=== PATIENT | female | born 1955 | race Caucasian/White ===

== ENCOUNTER 2017-02-12 11:16 | Inpatient (IN) | payer OTHER ==
[~2017-02-12] VITALS: Ht 157.5 cm; Wt 59.0 kg
[~2017-02-12 11:16] MED LIST: ALBU1AER9 INH; AMIT100T2 PO; BENA20TA11 PO; CALCTAB7 PO; LVQ500 PO; NRN/300 PO; OXYC-164 PO; TIZA1CAP2 PO; TIZA2CAP PO
[2017-02-12] MEDS ORDERED: NICOTINE 21 MG/24 HR TDSY TD STA (11:20)
[2017-02-12] MEDS ORDERED: SODIUM CHLORIDE 0.9% 1000ML 1,000 ML IV STA (11:20)
[2017-02-12] MEDS ORDERED: ALBUT/IPRATROP 3MG/0.5MG NEB 3 ML VIAL INH ONE (11:30)
[2017-02-12] MEDS ORDERED: NICOTINE POLACRILEX 2 MG GUM MT PRN (11:30)
--- NOTE | 2017-02-12 11:30 | EMERGENCY ROOM VISIT NOTE ---
History Report prepared by Loni: Reny Doe Under the Supervision of: Dr. Owen Shukla M.D. First contact with patient: 11:16 Stated Complaint: RESPIRATORY DISTRESS History of Present Illness The patient is a 61 year old female who presents to the Emergency Room with complaints of persistent respiratory distress that began prior to arrival. Per EMS upon arrival to the patient's home the patient was blue and obtunded. EMS reports that the patient's oxygenation saturation was 86% on room air. EMS notes that the patient does not wear oxygen at home. They note that the patient smokes approximately 5 cigarettes per day. EMS reports that the patient was given Albuterol, Solu Medrol, and supplemental nasal cannula oxygen that helped to alleviate her symptoms. EMS reports that the patient has a history of progressive MS and had a fall yesterday injuring her left leg. The patient's had noted that the patient has a history of pneumonia. Source of History: patient, spouse/significant other (), EMS Onset: prior to arrival Position: other (global) Quality: other (respiratory distress) Timing: other (persistent) Modifying Factors (Relieving): oxygen, other (Albuterol, Solu Medrol) Note: Associated Symptoms: blue, obtunded Review of Systems See HPI for pertinent positives & negatives. A total of 10 systems reviewed and were otherwise negative. Past Medical & Surgical Medical Problems: (1) Anxiety (2) COPD (chronic obstructive pulmonary disease) (3) Depression (4) Dyslipidemia (5) HTN (hypertension) (6) Left patella fracture (7) Multiple sclerosis (8) Persistent insomnia (9) Restless leg syndrome Surgical Problems: (1) History of total right hip arthroplasty Family History Cancer FH: heart attack Social History Smoking Status: Current Every Day Smoker Alcohol Use: none Marital Status: Housing Status: lives with family Occupation Status: employed Current/Historical Medications Scheduled Amitriptyline Hcl (Elavil), 100 MG PO HS Gabapentin (Neurontin), 900 MG PO HS Levofloxacin (Levaquin), 500 MG PO DAILY Multiple Vitamin (Multivitamin), 1 TAB PO DAILY Prednisone Tab (Prednisone), 40 MG PO DAILY Tizanidine Hcl (Tizanidine Hcl), 10 MG PO HS Scheduled PRN Albuterol Hfa (Ventolin Hfa), 2 PUFFS INH QID PRN for Shortness of Breath Clonazepam (Klonopin), 2 MG PO QID PRN for Anxiety Lorazepam (Ativan), 1 MG PO TID PRN for Anxiety Oxycodone Hcl (Oxycodone Hcl), 20 MG PO Q4H PRN for back pain Allergies Coded Allergies: No Known Allergies (Verified , 03/13/15) Physical Exam Vital Signs Date Time Temp Pulse Resp B/P Pulse Ox O2 Delivery O2 Flow Rate FiO2 02/12/17 13:30 100 BiPAP 15.0 60 02/12/17 13:16 106 23 100 02/12/17 12:46 107 112/89 100 02/12/17 12:33 108 161/98 100 BiPAP 15.0 02/12/17 12:32 161/98 02/12/17 12:31 169/99 02/12/17 12:09 105 22 96 BiPAP/CPAP 60 02/12/17 12:06 105 96 100 02/12/17 12:00 160/86 02/12/17 11:54 24 99 BiPAP 02/12/17 11:47 114 28 134/82 Nasal Cannula 6.0 02/12/17 11:46 116 93 02/12/17 11:45 134/82 02/12/17 11:35 118 30 149/80 92 Nasal Cannula 6.0 02/12/17 11:34 91 Nasal Cannula 6.0 02/12/17 11:33 149/80 02/12/17 11:30 118 02/12/17 11:19 162/93 02/12/17 11:18 37.4 119 32 162/93 90 Nasal Cannula 6.0 02/12/17 11:18 85 Room Air Physical Exam GENERAL: Patient is a healthy-appearing well-nourished HEAD: Normocephalic atraumatic EYES: Ocular movements intact pupils equal and react to light OROPHARYNX mucous membranes are moist no exudates present no erythema or edema present NECK: Supple no nuchal rigidity CHEST: Good equal expansion LUNGS: Diffuse wheezing throughout all lung quiroz. CARDIAC: Normal S1 and S2 ABDOMEN: Soft nontender no guarding BACK: No CVA tenderness EXTREMITIES: No pain upon palpation normal muscle strength in all groups no clubbing cyanosis or edema NEURO: Patient is following commands is answering questions appropriately. Alert and oriented x3 Cranial Nerves 2-12 grossly intact Medical Decision & Procedures ER Provider Diagnostic Interpretation: Radiology results as stated below per my review and radiologist interpretation: CHEST ONE VIEW PORTABLE HISTORY: Sepsis COMPARISON: Chest 02/26/2016. FINDINGS: Rotated study. Mild left basilar interstitial thickening which may be chronic. Right hilar density may be due to the patient rotation. No pneumothorax. No pleural effusions. The heart is normal in size. Old, healed left humeral neck fracture. No evidence for pulmonary edema. IMPRESSION: Rotated study. Mild left basilar interstitial thickening which is likely chronic. Increased density within the right hilum may be due to patient rotation. Electronically signed by: Reg Barker M.D. 02/12/2017 11:48 AM Dictated Date/Time: 02/12/2017 11:[address] SCAN OF THE BRAIN WITHOUT IV CONTRAST CLINICAL HISTORY: Change in mental status. COMPARISON STUDY: CT of the brain dated 02/26/2016. TECHNIQUE: Unenhanced axial CT scan of the brain is performed from the vertex to the skull base. CT DOSE: 823.94 mGycm FINDINGS: Brain parenchyma: There are age-related involutional changes noting mild subcortical and periventricular microangiopathic change. Chronic lacunar infarcts are identified in the right cerebellar hemisphere. There is no hemorrhage, mass effect, or evidence of acute territorial ischemia by CT criteria. Osman-white matter is preserved. No extra-axial fluid collection is seen. Ventricles, sulci, cisterns: Prominent secondary to involutional change. Intracranial vasculature: There is atherosclerotic calcification of the cavernous carotid arteries. Calvarium: Unremarkable. Sinuses and mastoids: The visualized paranasal sinuses are clear. The mastoid air cells are well pneumatized. Orbits: The bony orbits are grossly intact. There are bilateral ocular lens implants. IMPRESSION: There is no hemorrhage, mass effect, or evidence of acute territorial ischemia by CT criteria. Electronically signed by: Ki Padilla M.D. 02/12/2017 12:33 PM Dictated Date/Time: 02/12/2017 12:29 PM Laboratory Results Test 02/12/17 11:22 02/12/17 11:55 02/12/17 12:01 02/12/17 13:10 Immature Granulocyte % (Auto) 0.2 % White Blood Count 12.69 K/uL (4.8-10.8) Red Blood Count 5.00 M/uL (4.2-5.4) Hemoglobin 13.9 g/dL (12.0-16.0) Hematocrit 42.3 % (37-47) Mean Corpuscular Volume 84.6 fL (80-100) Mean Corpuscular Hemoglobin 27.8 pg (25-34) Mean Corpuscular Hemoglobin Concent 32.9 g/dl (32-36) Platelet Count 208 K/uL (130-400) Mean Platelet Volume 9.2 fL (7.4-10.4) Neutrophils (%) (Auto) 92.2 % Lymphocytes (%) (Auto) 4.7 % Monocytes (%) (Auto) 2.8 % Eosinophils (%) (Auto) 0.0 % Basophils (%) (Auto) 0.1 % Neutrophils # (Auto) 11.70 K/uL (1.4-6.5) Lymphocytes # (Auto) 0.60 K/uL (1.2-3.4) Monocytes # (Auto) 0.35 K/uL (0.11-0.59) Eosinophils # (Auto) 0.00 K/uL (0-0.5) Basophils # (Auto) 0.01 K/uL (0-0.2) Immature Granulocyte # (Auto) 0.03 K/uL (0.00-0.02) Prothrombin Time 10.8 SECONDS (9.0-12.0) Prothromb Time International Ratio 1.0 (0.9-1.1) Activated Partial Thromboplast Time 33.2 SECONDS (21.0-31.0) Partial Thromboplastin Ratio 1.3 Estimated Average Glucose 120 mg/dl Hemoglobin A1c 5.8 % (4.5-5.6) Total Bilirubin 0.8 mg/dl (0.2-1) Aspartate Amino Transf (AST/SGOT) 35 U/L (15-37) Alanine Aminotransferase (ALT/SGPT) 21 U/L (12-78) Alkaline Phosphatase 113 U/L (45-117) Creatine Kinase MB 4.8 ng/ml (0.5-3.6) Creatine Kinase MB Ratio 0.4 (0-3.0) Troponin I < 0.015 ng/ml (0-0.045) Total Protein 7.8 gm/dl (6.4-8.2) Albumin 3.7 gm/dl (3.4-5.0) Globulin 4.1 gm/dl (2.5-4.0) Albumin/Globulin Ratio 0.9 (0.9-2) Influenza Type A (RT-PCR) Neg for Influ A (NEG) Influenza Type A Antigen Neg for Influ A (NEG) Influenza Type B Antigen Neg for Influ B (NEG) Influenza Type B (RT-PCR) Neg for Influ B (NEG) Bedside Lactic Acid Venous 2.09 mmol/L (0.90-1.70) Arterial Blood pH 7.37 (7.35-7.45) Arterial Blood Partial Pressure CO2 46 mmHg (35-46) Arterial Blood Partial Pressure O2 57 mm/Hg (80-95) Arterial Blood HCO3 26 mmol/L (19-24) Arterial Blood Oxygen Saturation 87.5 % (90-95) Arterial Blood Base Excess 0.7 mEq/L (-9-1.8) Arterial Blood Gas Delivery 100% Harpreet Test POS (POS) Labs reviewed by ED physician. Medications Administered Medications (Trade) Dose Ordered Sig/Elodia Route Start Time Stop Time Status Last Admin Dose Admin Albuterol/ Ipratropium 12 ml 12 ml ONE ONCE INH 02/12/17 11:30 02/12/17 11:31 DC 02/12/17 11:30 12 ML Sodium Chloride (Nss 1000ml) 1,000 ml @ 999 mls/hr Q1H1M STAT IV 02/12/17 11:20 02/12/17 12:20 DC 02/12/17 11:41 999 MLS/HR Nicotine (Nicoderm Cq 21MG Patch) 1 patch NOW STAT TD 02/12/17 11:20 02/12/17 11:22 DC 02/12/17 11:46 1 PATCH ECG Indication: SOB/dyspnea Rate (beats per minute): 117 Rhythm: sinus tachycardia Findings: no acute ischemic change, no ectopy ED Course 1115: Past medical records reviewed. The patient was evaluated in room B1. A complete history and physical examination was performed. 1120: Ordered Nicotine 1 patch TD, Sodium Chloride 1000 ml @ 999 mls/hr IV. 1130: Ordered Duoneb 12 ml INH. 1142: I reevaluated the patient at this time. 1149: I called for Respiratory to place the patient on Bi-PAP. 1240: I reevaluated the patient and she is resting. I discussed all the exam findings with her and I discussed the treatment plan. She verbalized complete understanding and agreement. She is going to be evaluated for further treatment. 1243: I discussed the patients case with Isidro Dow PA-C. She is going to evaluate the patient for further treatment. Medical Decision Differential diagnosis: Etiologies such as infections, reactive airway disease, pneumonia, pneumothorax , COPD, CHF, cardiac ischemia, pulmonary embolism, musculoskeletal, gastrointestinal, as well as others were entertained. This is a 61-year-old female who presents emergency department complaining of respiratory distress. The patient has wheezing throughout all lung quiroz. She was given an hour-long breathing treatment while in the emergency department. I did discuss the case with the hospitalist service who agreed to admit the patient. Patient was placed on BiPAP in the emergency department. Patient family were in agreement with the treatment plan. Consults Time Called: 1236 Consulting Physician: Isidro Dow PA-C Returned Call: [phone] I discussed the patients case with Isidro Dow PA-C. She is going to evaluate the patient for further treatment. Impression Primary Impression: Respiratory failure Additional Impression: Altered mental status Critical Care I have personally spent greater than 30 minutes of critical care time in the direct management of this patient. This includes bedside care, interpretation of diagnostic studies, and testing, discussion with consultants, patient, and family members, and other required patient management activities. This 30 minutes is in excess of all separately billable procedures. Scribe Attestation The scribe's documentation has been prepared under my direction and personally reviewed by me in its entirety. I confirm that the note above accurately reflects all work, treatment, procedures, and medical decision making performed by me. Departure Information Dispostion Being Evaluated By Hospitalist Prescriptions Levofloxacin (Levaquin) 500 Mg Tab 500 MG PO DAILY for 5 Days, #5 TABS Prov: Piper Javier DO 02/13/17 Prednisone Tab (PREDNISONE) 10 Mg Tab 40 MG PO DAILY for 5 Days, #20 TAB Prov: Piper Javier, DO 02/13/17 Oxycodone Hcl (OXYCODONE HCL) 10 Mg Tab 20 MG PO Q4H Y for back pain for 10 Days Prov: Lisa Rich CRNP 4/25/17 Referrals Manuel Linares M.D. (PCP) Problem Qualifiers Primary Impression: Respiratory failure Chronicity: acute Respiratory failure complication: unspecified whether with hypoxia or hypercapnia Qualified Codes: J96.00 - Acute respiratory failure, unspecified whether with hypoxia or hypercapnia Additional Impression: Altered mental status Altered mental status type: unspecified Qualified Codes: R41.82 - Altered mental status, unspecified
[2017-02-12 11:42] LABS: BASO % 0.1 %; BASO ABS # 0.01 K/uL (0-0.2); COMPLETE YES; HEMATOCRIT 42.3 % (37-47); IG% 0.2 %; LYMPH % 4.7 %; MEAN CELL VOLUME 84.6 fL (80-100); MEAN CORPUSCULAR HEMOGLOBIN 27.8 pg (25-34); MEAN CORPUSCULAR HGB CONC 32.9 g/dl (32-36); MEAN PLATELET VOLUME 9.2 fL (7.4-10.4); MONO % 2.8 %; NEUT % 92.2 %; PLATELET COUNT 208 K/uL (130-400); WHITE BLOOD COUNT 12.69 K/uL (4.8-10.8)
--- NOTE | 2017-02-12 11:50 | DIAGNOSTIC IMAGING REPORT ---
CHEST ONE VIEW PORTABLE HISTORY: Sepsis COMPARISON: Chest 02/26/2016. FINDINGS: Rotated study. Mild left basilar interstitial thickening which may be chronic. Right hilar density may be due to the patient rotation. No pneumothorax. No pleural effusions. The heart is normal in size. Old, healed left humeral neck fracture. No evidence for pulmonary edema. IMPRESSION: Rotated study. Mild left basilar interstitial thickening which is likely chronic. Increased density within the right hilum may be due to patient rotation. Electronically signed by: Reg Barker M.D. 02/12/2017 11:48 AM Dictated Date/Time: 02/12/2017 11:46 AM
[2017-02-12 11:51] LABS: PARTIAL THROMBOPLASTIN RATIO 1.3; PROTHROMBIN TIME (PATIENT) 10.8 SECONDS (9.0-12.0)
[2017-02-12 11:54] LABS: ALT/SGPT 21 U/L (12-78); AST/SGOT 35 U/L (15-37); BLOOD UREA NITROGEN 11 mg/dl (7-18); BUN/CREATININE RATIO 13.9 (10-20); CALCIUM 8.8 mg/dl (8.5-10.1); CARBON DIOXIDE 29 mmol/L (21-32); CHLORIDE 104 mmol/L (98-107); GLUCOSE 173 mg/dl (70-99); POTASSIUM 3.7 mmol/L (3.5-5.1); SODIUM 139 mmol/L (136-145)
[2017-02-12 12:06] VITALS: PULSE 105; O2SAT 96
[2017-02-12 12:08] LABS: ALB/GLOB RATIO 0.9 (0.9-2); ALKALINE PHOSPHATASE 113 U/L (45-117); CKMB/CK RATIO 0.4 (0-3.0)
[2017-02-12 12:09] VITALS: PULSE 105; O2SAT 96
--- NOTE | 2017-02-12 12:35 | DIAGNOSTIC IMAGING REPORT ---
CT SCAN OF THE BRAIN WITHOUT IV CONTRAST CLINICAL HISTORY: Change in mental status. COMPARISON STUDY: CT of the brain dated 02/26/2016. TECHNIQUE: Unenhanced axial CT scan of the brain is performed from the vertex to the skull base. CT DOSE: 823.94 mGycm FINDINGS: Brain parenchyma: There are age-related involutional changes noting mild subcortical and periventricular microangiopathic change. Chronic lacunar infarcts are identified in the right cerebellar hemisphere. There is no hemorrhage, mass effect, or evidence of acute territorial ischemia by CT criteria. Osman-white matter is preserved. No extra-axial fluid collection is seen. Ventricles, sulci, cisterns: Prominent secondary to involutional change. Intracranial vasculature: There is atherosclerotic calcification of the cavernous carotid arteries. Calvarium: Unremarkable. Sinuses and mastoids: The visualized paranasal sinuses are clear. The mastoid air cells are well pneumatized. Orbits: The bony orbits are grossly intact. There are bilateral ocular lens implants. IMPRESSION: There is no hemorrhage, mass effect, or evidence of acute territorial ischemia by CT criteria. Electronically signed by: Ki Padilla M.D. 02/12/2017 12:33 PM Dictated Date/Time: 02/12/2017 12:29 PM
[2017-02-12 13:22] LABS: ARTERIAL BLD GAS O2 SATURATION 87.5 % (90-95); ARTERIAL BLOOD GAS BASE EXCESS 0.7 mEq/L (-9-1.8); ARTERIAL BLOOD GAS HCO3 26 mmol/L (19-24); ARTERIAL BLOOD GAS PO2 57 mm/Hg (80-95); ARTERIAL BLOOD GAS pH 7.37 (7.35-7.45)
[2017-02-12 13:30] VITALS: O2SAT 100; Ht 157.5 cm; Wt 59.0 kg
[2017-02-12 13:50] LABS: ALLEN TEST POS (POS); O2 ADMINISTRATION 100%
[2017-02-12 13:57] LABS: INFLUENZA A PCR Neg for Influ A (NEG); INFLUENZA B PCR Neg for Influ B (NEG)
[2017-02-12] MEDS ORDERED: ACETAMINOPHEN 325 MG TAB PO PRN (14:00)
[2017-02-12] MEDS ORDERED: ONDANSETRON INJ 2 MG/ML 2 ML VIAL IV PRN (14:00)
[2017-02-12] MEDS ORDERED: OXYC-164 PO (14:04)
[2017-02-12] MEDS ORDERED: ATV/1 PO (14:04)
[2017-02-12 14:24] LABS: URINE APPEARANCE CLEAR (CLEAR); URINE BILIRUBIN NEG (NEG); URINE COLOR YELLOW; URINE NITRITE NEG (NEG); URINE SPECIFIC GRAVITY 1.019 (1.000-1.030); UROBILINOGEN NEG (NEG)
[2017-02-12 14:25] LABS: MANUAL MICROSCOPIC REQUIRED? NO; REVIEW REQ? NO
[2017-02-12 14:48] LABS: ESTIMATED AVERAGE GLUCOSE 120 mg/dl; HA1C FLAG Normal (Normal)
[2017-02-12 15:07] LABS: BENZODIAZEPINE, URINE POS (NEG); COCAINE,URINE NEG (NEG); PHENCYCLIDINE, URINE NEG (NEG)
[2017-02-12] MEDS ORDERED: ALBUT/IPRATROP 3MG/0.5MG NEB 3 ML VIAL INH PRN (15:30)
--- NOTE | 2017-02-12 15:35 | Progress Note ---
Progress Note Date of Service Feb 12, 2017. Progress Note Patient was seen and evaluated with [employer] OFFICER, Lisa Rich. Patient was brought by EMS as she was obtunded and had turned blue, saturating 86% on RA. Was placed on BIPAP by ED physician. Exam: -General: Awake, Oriented x 3, Fidgety + Restless + -HEENT- Off BIPAP- on oxygen 93% -Lungs- AEBE decreased, no wheezing, crackles -Heart-Sinus tachycardia + -Abd- soft, non tender, non distended, -Neuro- Right sided weakness from MS, no new deficits A/P: 1. UNRESPONSIVE EPISODE- Likely secondary to Medications- Narcotics/Klonopin/Oxycodone/Tizanidine/ gabapentin/amitriptyline. Was found to be hypoxic by EMS 86% on RA and while in ER- BIPAP. Unclear if took more of these pills or any other drugs ? Urine toxicology-pending. Was in hospital this year for similar reason. -Now Awake, alert but very agitated, restless. Oriented x 3, knows /Home address -Hold her home meds as above, eventually will have to re start as may go into withdrawal -Follow up urine tox; CT head- no acute abnormalities noted 2. ACUTE HYPOXIC RESPIRATORY FAILURE - Improving -86% on RA by EMS, Was blue and obtunded when found at home. BIPAP in ER, now on Oxygen nasal cannula -Most likely secondary to # 1. -Has hx of COPD with ongoing heavy tobacco abuse. -Will continue with nebulizers -CXR- no acute abnormalities -Monitor 3. RHABDOMYOLYSIS -CPK 1100s -IV Fluids 3. COPD- Heavy smoker -ongoing + -As above 4.HX OF MS With chronic right sided weakness 5. CHRONIC PAIN Need to adjust pain medications prior to discharge as receiving multiple medications -For now holding them, but need to monitor for withdrawal and eventually re introduce cautiously 6. FIBROMYALGIA/ANXIETY DISPOSITION Tele monitor admission
[2017-02-12] MEDS: METHYLPREDNISOLONE IV 40 MG in SYRINGE 0 ML IV SCH ×2 (15:55→21:31)
[2017-02-12] MEDS: SODIUM CHLORIDE 0.9% 1000ML 1,000 ML IV SCH (15:55)
[2017-02-12] MEDS: LEVOFLOXACIN / D5W 500 MG in PREMIXED IN D5W 100 ML IV SCH (16:45)
[2017-02-12] MEDS ORDERED: HALOPERIDOL LACTATE 5 MG/ML 1 ML VIAL IV PRN (17:00)
--- NOTE | 2017-02-12 18:18 | History and Physical ---
History & Physical Date & Time of Service: Feb 12, 2017 ~ 13:30 Chief Complaint: Altered Mental Status Primary Care Physician: Chuck Smith D.O. History of Present Illness 61 year old female who presents to the ER with altered mental status. Due to patient's current mental status, history is limited from her. History is obtained from and ER documentation. reports that patient has had increasing generalized weakness for the past few days. She has fallen multiple times. She has chronic right sided weakness which is unchanged. He reports she normally can ambulate however has required a wheelchair the past few days. He also notes an increased cough. No other symptoms were reported. This morning when the caregiver arrived, patient was lethargic and confused. EMS was called and patient was found to be 86% on room air. She as given neb, solumedrol, and placed on oxygen. Upon arrival to the ER, patient was placed on BiPap. During my exam, patient is awake however somewhat agitated and confused. I was able to take her off BiPap and she is saturating well on 3L. She is mildly tachycardic, BP stable. POC Lactic acid is 2.06. WBC 12K. CXR is clear. Past Medical/Surgical History Medical Problems: (1) Anxiety Status: Chronic (2) COPD (chronic obstructive pulmonary disease) Status: Chronic (3) Depression Status: Chronic (4) Dyslipidemia Status: Chronic (5) HTN (hypertension) Status: Chronic (6) Left patella fracture Permanent Comment: requiring internal fixation repair by Dr. King 2001 Status: Resolved (7) Multiple sclerosis Status: Chronic (8) Persistent insomnia Status: Chronic (9) Restless leg syndrome Status: Chronic Surgical Problems: (1) History of total right hip arthroplasty Permanent Comment: secondary to R hip fracture; performed by Dr. Murrieta 11/27/12 Status: Resolved Family History FH: brain cancer MOTHER FH: heart attack FATHER Social History Smoking Status: Current Every Day Smoker Alcohol Use: none Marital Status: Immunizations History of Influenza Vaccine: Yes Influenza Vaccine Date: Aug 21, 2016 History of Tetanus Vaccine?: Yes Tetanus Immunization Date: Apr 20, 2008 History of Pneumococcal: Yes Pneumococcal Date: Jul 18, 2015 Multi-Drug Resistant Organisms History of MDRO: No Allergies Coded Allergies: No Known Allergies (Verified , 03/13/15) Home Medications Scheduled Amitriptyline Hcl (Elavil), 100 MG PO HS Gabapentin (Neurontin), 900 MG PO HS Multiple Vitamin (Multivitamin), 1 TAB PO DAILY Tizanidine Hcl (Tizanidine Hcl), 10 MG PO HS Scheduled PRN Albuterol Hfa (Ventolin Hfa), 2 PUFFS INH QID PRN for Shortness of Breath Clonazepam (Klonopin), 2 MG PO QID PRN for Anxiety Lorazepam (Ativan), 1 MG PO TID PRN for Anxiety Oxycodone Hcl (Oxycodone Hcl), 20 MG PO Q4H PRN for back pain Review of Systems unable to be completed with patient due to mental status Physical Exam Vital Signs Date Time Temp Pulse Resp B/P Pulse Ox O2 Delivery O2 Flow Rate FiO2 02/12/17 14:21 108 23 89 02/12/17 14:06 106 23 99 02/12/17 13:51 110 27 100 02/12/17 13:46 109 26 100 02/12/17 13:30 100 BiPAP 15.0 60 02/12/17 13:16 106 23 100 02/12/17 12:46 107 112/89 100 02/12/17 12:33 108 161/98 100 BiPAP 15.0 02/12/17 12:32 161/98 02/12/17 12:31 169/99 02/12/17 12:09 105 22 96 BiPAP/CPAP 60 02/12/17 12:06 105 96 100 02/12/17 12:00 160/86 02/12/17 11:54 24 99 BiPAP 02/12/17 11:47 114 28 134/82 Nasal Cannula 6.0 02/12/17 11:46 116 93 02/12/17 11:45 134/82 02/12/17 11:35 118 30 149/80 92 Nasal Cannula 6.0 02/12/17 11:34 91 Nasal Cannula 6.0 02/12/17 11:33 149/80 02/12/17 11:30 118 02/12/17 11:19 162/93 02/12/17 11:18 37.4 119 32 162/93 90 Nasal Cannula 6.0 02/12/17 11:18 85 Room Air General Appearance: + mild distress (agitated) Head: normocephalic Eyes: normal inspection ENT: hearing grossly normal Neck: supple, no JVD Respiratory/Chest: no respiratory distress, + decreased breath sounds Cardiovascular: no edema, normal peripheral pulses, + tachycardia (regular rhythm) Abdomen/GI: normal bowel sounds, non tender, soft Extremities/Musculoskelatal: normal inspection, no calf tenderness Neurologic/Psych: alert, oriented x 3, + pertinent finding (agitated with poor insight, unable to recall events; chronic right sided weakness noted) Skin: normal color, warm/dry Diagnostics Laboratory Results Results Past 24 Hours Test 02/12/17 11:22 02/12/17 11:55 02/12/17 12:01 02/12/17 13:10 Range/Units White Blood Count 12.69 4.8-10.8 K/uL Red Blood Count 5.00 4.2-5.4 M/uL Hemoglobin 13.9 12.0-16.0 g/dL Hematocrit 42.3 37-47 % Mean Corpuscular Volume 84.6 80-100 fL Mean Corpuscular Hemoglobin 27.8 25-34 pg Mean Corpuscular Hemoglobin Concent 32.9 32-36 g/dl Platelet Count 208 130-400 K/uL Mean Platelet Volume 9.2 7.4-10.4 fL Neutrophils (%) (Auto) 92.2 % Lymphocytes (%) (Auto) 4.7 % Monocytes (%) (Auto) 2.8 % Eosinophils (%) (Auto) 0.0 % Basophils (%) (Auto) 0.1 % Neutrophils # (Auto) 11.70 1.4-6.5 K/uL Lymphocytes # (Auto) 0.60 1.2-3.4 K/uL Monocytes # (Auto) 0.35 0.11-0.59 K/uL Eosinophils # (Auto) 0.00 0-0.5 K/uL Basophils # (Auto) 0.01 0-0.2 K/uL RDW Standard Deviation 44.3 36.4-46.3 fL RDW Coefficient of Variation 14.3 11.5-14.5 % Immature Granulocyte % (Auto) 0.2 % Immature Granulocyte # (Auto) 0.03 0.00-0.02 K/uL Prothrombin Time 10.8 9.0-12.0 SECONDS Prothromb Time International Ratio 1.0 0.9-1.1 Activated Partial Thromboplast Time 33.2 21.0-31.0 SECONDS Partial Thromboplastin Ratio 1.3 Sodium Level 139 136-145 mmol/L Potassium Level 3.7 3.5-5.1 mmol/L Chloride Level 104 98-107 mmol/L Carbon Dioxide Level 29 21-32 mmol/L Anion Gap 6.0 3-11 mmol/L Blood Urea Nitrogen 11 7-18 mg/dl Creatinine 0.80 0.60-1.20 mg/dl Est Creatinine Clear Calc Drug Dose 59.9 ml/min Estimated GFR () 93.5 Estimated GFR (Non- 80.7 BUN/Creatinine Ratio 13.9 10-20 Random Glucose 173 70-99 mg/dl Estimated Average Glucose 120 mg/dl Hemoglobin A1c 5.8 4.5-5.6 % Calcium Level 8.8 8.5-10.1 mg/dl Total Bilirubin 0.8 0.2-1 mg/dl Aspartate Amino Transf (AST/SGOT) 35 15-37 U/L Alanine Aminotransferase (ALT/SGPT) 21 12-78 U/L Alkaline Phosphatase 113 45-117 U/L Total Creatine Kinase 1126 26-192 U/L Creatine Kinase MB 4.8 0.5-3.6 ng/ml Creatine Kinase MB Ratio 0.4 0-3.0 Troponin I < 0.015 0-0.045 ng/ml Total Protein 7.8 6.4-8.2 gm/dl Albumin 3.7 3.4-5.0 gm/dl Globulin 4.1 2.5-4.0 gm/dl Albumin/Globulin Ratio 0.9 0.9-2 Influenza Type A (RT-PCR) Neg for Influ A NEG Influenza Type A Antigen Neg for Influ A NEG Influenza Type B Antigen Neg for Influ B NEG Influenza Type B (RT-PCR) Neg for Influ B NEG Bedside Lactic Acid Venous 2.09 0.90-1.70 mmol/L Arterial Blood pH 7.37 7.35-7.45 Arterial Blood Partial Pressure CO2 46 35-46 mmHg Arterial Blood Partial Pressure O2 57 80-95 mm/Hg Arterial Blood HCO3 26 19-24 mmol/L Arterial Blood Oxygen Saturation 87.5 90-95 % Arterial Blood Base Excess 0.7 -9-1.8 mEq/L Arterial Blood Gas Delivery 100% Harpreet Test POS POS Test 02/12/17 14:00 02/12/17 16:00 Range/Units Urine Color YELLOW Urine Appearance CLEAR CLEAR Urine pH 5.0 4.5-7.5 Urine Specific [place] 1.019 1.000-1.030 Urine Protein NEG NEG Urine Glucose (UA) NEG NEG Urine Ketones TRACE NEG Urine Occult Blood 2+ NEG Urine Nitrite NEG NEG Urine Bilirubin NEG NEG Urine Urobilinogen NEG NEG Urine Leukocyte Esterase NEG NEG Urine WBC (Auto) 1-5 0-5 /hpf Urine RBC (Auto) 5-10 0-4 /hpf Urine Hyaline Casts (Auto) 1-5 0-5 /lpf Urine Epithelial Cells (Auto) 10-20 0-5 /lpf Urine Bacteria (Auto) NEG NEG Urine Opiates Screen POS NEG Urine Methadone, Qualitative NEG NEG Urine Barbiturates NEG NEG Urine Phencyclidine (PCP) Level NEG NEG Ur Amphetamine/Methamphetamine NEG NEG MDMA (Ecstasy) Screen NEG NEG Urine Benzodiazepines Screen POS NEG Urine Cocaine Metabolite NEG NEG Urine Marijuana (THC) NEG NEG Lactic Acid Level 4.4 0.4-2.0 mmol/L Total Creatine Kinase 1635 26-192 U/L Microbiology Results 02/12/17 Blood Culture, Received Pending 02/12/17 Blood Culture, Received Pending 02/12/17 Gram Stain, Received Pending 02/12/17 Sputum Culture, Received Pending 02/12/17 Urine Culture, Received Pending Diagnostic Radiology CXR IMPRESSION: Rotated study. Mild left basilar interstitial thickening which is likely chronic. Increased density within the right hilum may be due to patient rotation. CT HEAD IMPRESSION: There is no hemorrhage, mass effect, or evidence of acute territorial ischemia by CT criteria. Impression Assessment and Plan ALTERED MENTAL STATUS - admit to tele - patient presenting with lethargy, confusion, and hypoxia - head CT negative - hx of COPD, no CO2 retention on ABG - suspect due to over medication with oxycodone, amitriptyline, clonazepam, Neurontin, and lorazepam - patient started to wake up in the ER and become more agitated once she arrived on the floor - ? due to withdrawal - s/p Haldol 2.5mg IV x 1 - will resume clonazepam ACUTE HYPOXIC RESPIRATORY FAILURE - likely due to over sedation from medications, possible COPD exacerbation - holding above medications except clonazepam - required BiPap in ER, now saturating well on 3L - nebs, IV steroids, Levaquin - WBC 12K, mild tachycardia, and lactic acidosis; BP stable, afebrile - suspect agitation and possible withdrawal is contributing to tachycardia, do not suspect sepsis; CXR clear, will check U/A; continue to monitor lactic acidosis with - could consider PE work up if patient does not improve from a respiratory stand point RHABDOMYOLYSIS - likely due to recent multiple falls - renal function normal CHRONIC PAIN, FIBROMYALGIA - holding medications as above - patient is to see [facility] pain management as an outpatient MS DVT PROPHYLAXIS - SQ Lovenox DISPO - In my clinical judgment this beneficiary meets acute admission criteria, established by [facility], that includes being hospitalized through two midnights. Advanced Directives Existing Living Will: No Existing Power of Social Staff Worker: No VTE Prophylaxis VTE Risk Assessment Done? Y/N: Yes Risk Level: Moderate
[2017-02-12] MEDS: CLONAZEPAM 1 MG TAB PO PRN (18:40)
[2017-02-12 19:40] VITALS: PULSE 92; O2SAT 94
[2017-02-12] MEDS: ALBUT/IPRATROP 3MG/0.5MG NEB 3 ML VIAL INH SCH (19:40)
[2017-02-12 19:55] VITALS: BP 134/75; PULSE 59; TEMP 36.7; O2SAT 93
[2017-02-12] MEDS: ENOXAPARIN 40 MG/0.4 ML SYR SC SCH (21:00)
[2017-02-12] MEDS: GABAPENTIN 300 MG CAP PO SCH (21:10)
[2017-02-12] MEDS ORDERED: OPTIRAY 320 IV PRN (22:30)
[2017-02-12] MEDS ORDERED: SODIUM CHLORIDE 0.9% 500ML 500 ML IV SCH (22:30)
[2017-02-12 23:44] VITALS: BP 125/53; PULSE 82; TEMP 36.8; O2SAT 96
[2017-02-13] VITALS (12 sets, daily range): BP systolic 129–172; BP diastolic 72–90; PULSE 71–89; TEMP 36.5–36.8; O2SAT 85–98
[2017-02-13] MEDS: ALBUT/IPRATROP 3MG/0.5MG NEB 3 ML VIAL INH SCH ×4 (02:42→19:54)
[2017-02-13] MEDS: SODIUM CHLORIDE 0.9% 1000ML 1,000 ML IV SCH ×4 (03:40→20:23)
[2017-02-13] MEDS: METHYLPREDNISOLONE IV 40 MG in SYRINGE 0 ML IV SCH ×3 (06:16→20:22)
--- NOTE | 2017-02-13 06:37 | DIAGNOSTIC IMAGING REPORT ---
CT ABD/PELVIS IV CONTRAST ONLY CLINICAL HISTORY: lactic acidosis ABDOMINAL PAIN COMPARISON STUDY: None. TECHNIQUE: Following the IV administration of 94 mL of Optiray-320, CT scan of the abdomen and pelvis was performed from the lung bases to the proximal femurs. Images are reviewed in the axial, sagittal, and coronal planes. IV contrast was administered without complication. CT DOSE: 306.79 mGy.cm FINDINGS: Lower chest: There is a nodular area of airspace consolidation within the right lower lobe suspicious for pneumonia. Radiographic follow-up is recommended. There is fluid within the distal esophagus. Liver: There is mild hepatic steatosis. No focal masses are visualized. Portal vein appears patent. Gallbladder: Unremarkable. Spleen: Normal in size and attenuation. Pancreas: Unremarkable. Adrenal glands: Unremarkable. Kidneys: There is a 42 mm right parapelvic cyst. No solid renal masses are visualized. Bowel: Evaluation the bowel is limited due to the lack of orally administered contrast, and moderate motion artifact.. There are no transition zones indicate bowel obstruction. An equivocal thick-walled pelvic bowel loop, is felt to represent 2 adjacent loops as visualized on coronal reformatted imaging. There are no findings to indicate acute diverticulitis or acute appendicitis. There is mild fecal retention. Peritoneum: There is no intraperitoneal free air or abdominal ascites. There is a small fat-containing left inguinal hernia Vasculature: The abdominal aorta is normal in course and caliber. Adenopathy: None. Pelvic viscera: There is eventually fully catheter. There is artifact from a right hip arthroplasty. Skeletal structures: There is subacute T12 and L1 compression fractures IMPRESSION: 1. Study compromised by motion artifact 2. Nodular right lower lobe airspace opacities suspicious for pneumonia. Clinical and imaging follow-up is recommended 3. No evidence of bowel obstruction. No evidence of free air 4. Fecal retention 5. Subacute T12 and L1 compression fractures 6. No evidence of acute appendicitis. No evidence of acute diverticulitis. Electronically signed by: Canelo Vernon M.D. 02/13/2017 6:35 AM Dictated Date/Time: 02/13/2017 6:29 AM
[2017-02-13 07:53] LABS: HEMATOCRIT 35.3 % (37-47); MEAN CELL VOLUME 83.1 fL (80-100); MEAN CORPUSCULAR HEMOGLOBIN 26.6 pg (25-34); MEAN PLATELET VOLUME 9.3 fL (7.4-10.4); PLATELET COUNT 193 K/uL (130-400); RED BLOOD COUNT 4.25 M/uL (4.2-5.4); WHITE BLOOD COUNT 10.65 K/uL (4.8-10.8)
[2017-02-13 08:54] LABS: BUN/CREATININE RATIO 19.8 (10-20); CALCIUM 8.9 mg/dl (8.5-10.1); CREATININE 0.52 mg/dl (0.60-1.20); POTASSIUM 3.2 mmol/L (3.5-5.1)
--- NOTE | 2017-02-13 09:40 | Clinical Documentation Query ---
YEHUDA Franks : CLINICAL DOCUMENTATION QUERY Patient is a 61 year old female admitted s/p an unresponsive episode, deemed likely secondary to medications (Oxycodone, Klonopin, Tizanidine, Neurontin, Amitriptyline). Provided supplemental O2 and Bi-PAP therapy and patient awakened agitated and restless. CT scan of the head was negative for acute pathology. Consider clarification as suggested below as an alteration of mental status is the hallmark symptom of encephalopathy. In your clinical opinion did this patient present with: ( X ) Toxic encephalopathy secondary to suspected multidrug overdose (intentional versus accidental) ( ) Other explanation of clinical findings (Please Explain) ( ) Unable to determine (Please Define) ( ) Need to Discuss ( ) Not Agree The medical record reflects the following clinical findings, treatment, and risk factors. Clinical Indicators: As above Treatment: Telemetry, supplemental O2, Bi-PAP, CT scan of the head Risk Factors: Multiple [employer] depressant ingestion. Please clarify and document your clinical opinion in the progress notes and discharge summary. Terms such as "probable", "suspected", "likely", "questionable", "possible", or "still to be ruled out" are acceptable. IF IN AGREEMENT, YOU MUST DOCUMENT ABOVE DIAGNOSTIC STATEMENT IN DAILY PROGRESS NOTES AND DISCHARGE SUMMARY. This document is not part of the patient's record. Thank You, Arcadio Gaffney, NYDIA [id number]
[2017-02-13] MEDS ORDERED: POTASSIUM CHLR 10 MEQ / WTR 10 MEQ in PREMIXED WATER 100 ML IV SCH (13:30)
[2017-02-13] MEDS ORDERED: POTASSIUM CHLORIDE 10 MEQ TABCR PO ONE (14:00)
--- NOTE | 2017-02-13 15:33 | Progress Note ---
Subjective Date of Service: Feb 13, 2017. Subjective Pt evaluation today including: conversation w/ patient, conversation w/ family , physical exam, lab review, review of studies, review of inpatient medication list Saw/examined the patient in room 232 She's doing better today; she is awake/alert, talking and answering appropriately off of supplemental oxygen and doing well, no chest pain or shortness of breath Eager to go home; she has an appointment with pain management tomorrow Problem List Medical Problems: (1) Altered mental status Status: Acute (2) Altered mental status Status: Acute (3) Exacerbation of multiple sclerosis Status: Acute (4) Fall Status: Acute (5) Pneumonia Status: Acute (6) Respiratory failure Status: Acute (7) Respiratory failure, acute Status: Acute (8) Sacral contusion Status: Acute Review of Systems Constitutional: + weakness, No chills, No fever Respiratory: No cough, No shortness of breath, No sputum Cardiac: No chest pain, No edema, No palpitations Abdomen: No diarrhea, No nausea, No pain, No vomiting Medications Current Inpatient Medications Medications (Trade) Dose Ordered Sig/Elodia Route Start Time Stop Time Status Last Admin Dose Admin Sodium Chloride (Nss 1000ml) 1,000 ml @ 125 mls/hr Q8H IV 02/12/17 14:00 03/14/17 13:59 02/13/17 11:03 125 MLS/HR Enoxaparin Sodium (Lovenox Inj) 40 mg QPM SC 02/12/17 21:00 03/14/17 20:59 Acetaminophen (Tylenol Tab) 650 mg Q4H PRN PO 02/12/17 14:00 03/14/17 13:59 02/12/17 15:55 650 MG Ondansetron HCl (Zofran Inj) 4 mg Q6H PRN IV 02/12/17 14:00 03/14/17 13:59 Albuterol/ Ipratropium 3 ml 3 ml Q6R INH 02/12/17 15:30 03/14/17 15:29 02/13/17 08:01 3 ML Methylprednisolone Sodium Succinate 40 mg/Syringe 0.64 ml @ 1.5 mls/min Q8 IV 02/12/17 15:30 03/14/17 15:29 02/13/17 14:03 1.5 MLS/MIN Levofloxacin/Prmx (Levaquin / D5W/ Premixed D5W) 100 ml @ 100 mls/hr Q24H IV 02/12/17 16:00 02/19/17 15:59 02/12/17 16:45 100 MLS/HR Albuterol/ Ipratropium (Duoneb) 3 ml Q2H PRN INH 02/12/17 15:30 03/14/17 15:29 Haloperidol Lactate (Haldol Inj) 2.5 mg Q4H PRN IV 02/12/17 17:00 03/14/17 16:59 02/12/17 17:28 2.5 MG Clonazepam (Klonopin Tab) 2 mg QID PRN PO 02/12/17 17:45 03/14/17 17:44 02/12/17 18:40 2 MG Gabapentin (Neurontin Cap) 900 mg HS PO 02/12/17 21:00 03/14/17 20:59 02/12/17 21:10 900 MG Tizanidine HCl (Zanaflex Tab) 10 mg HS PO 02/12/17 21:00 03/14/17 20:59 02/12/17 21:09 10 MG Ioversol (Optiray 320) 100 ml UD PRN IV 02/12/17 22:30 02/16/17 22:29 Objective Vital Signs Date Time Temp Pulse Resp B/P Pulse Ox O2 Delivery O2 Flow Rate FiO2 02/13/17 12:00 Nasal Cannula 4.0 02/13/17 11:44 36.8 77 20 129/72 94 4.0 02/13/17 08:01 71 22 93 Nasal Cannula 4.0 02/13/17 08:00 Nasal Cannula 4.0 02/13/17 07:54 36.6 72 20 129/72 94 Nasal Cannula 4.0 02/13/17 04:00 Room Air 5.0 02/13/17 03:30 36.5 79 22 135/74 95 Nasal Cannula 4.0 02/12/17 23:59 Room Air 5.0 02/12/17 23:44 36.8 82 20 125/53 96 Room Air 4.0 02/12/17 20:00 Room Air 5.0 02/12/17 19:55 36.7 59 22 134/75 93 Room Air 02/12/17 19:40 92 22 94 Nasal Cannula 4.0 02/12/17 16:00 Room Air 5.0 Physical Exam General Appearance: no apparent distress Respiratory/Chest: lungs clear, normal breath sounds, no respiratory distress, no accessory muscle use Cardiovascular: regular rate, rhythm, no edema, no murmur Extremities: normal inspection, no pedal edema Neurologic/Psychiatric: no motor/sensory deficits, alert, + pertinent finding ( mental status at baseline) Laboratory Results Last 24 Hours Test 02/12/17 16:00 02/12/17 21:13 02/13/17 02:25 02/13/17 07:04 Lactic Acid Level 4.4 mmol/L 5.3 mmol/L 1.2 mmol/L Total Creatine Kinase 1635 U/L 2118 U/L 1862 U/L White Blood Count 10.65 K/uL Red Blood Count 4.25 M/uL Hemoglobin 11.3 g/dL Hematocrit 35.3 % Mean Corpuscular Volume 83.1 fL Mean Corpuscular Hemoglobin 26.6 pg Mean Corpuscular Hemoglobin Concent 32.0 g/dl RDW Standard Deviation 42.9 fL RDW Coefficient of Variation 14.1 % Platelet Count 193 K/uL Mean Platelet Volume 9.3 fL Test 02/13/17 07:14 Sodium Level 147 mmol/L Potassium Level 3.2 mmol/L Chloride Level 114 mmol/L Carbon Dioxide Level 25 mmol/L Anion Gap 8.0 mmol/L Blood Urea Nitrogen 10 mg/dl Creatinine 0.52 mg/dl Est Creatinine Clear Calc Drug Dose 92.2 ml/min Estimated GFR () 121.2 Estimated GFR (Non- 104.6 BUN/Creatinine Ratio 19.8 Random Glucose 169 mg/dl Calcium Level 8.9 mg/dl Total Creatine Kinase 1340 U/L Assessment and Plan This is a 61 year old female with PMH of depression/anxiety, [employer] demyelination, MS follows with neurology, COPD, fibromyalgia - presents with altered mental status and respiratory failure Altered Mental Status Toxic Encephalopathy likely due to polypharmacy patient is on multiple medications that can alter mental status and consciousness She takes muscle relaxants, benzos, opioids, etc. These medications have to be adjusted as outpatient - patient to see pain management on 02/14 Her medications had been held, but slowly restarted Acute Respiratory Failure in the setting of severe COPD patient presented with hypoxia initially started on bipap in the ER that had been weaned off prior to admission to the floor now weaned off of O2 and saturating well no respiratory distress currently possibly from COPD vs. polypharmacy Lactic Acidosis lactic acid level > 5 IVFs given lactic acid level now 1.2 likely due to hypoxia Rhabdomyolysis CPK trending down from 1999 --> 1300 repeat CPK in 4-5 days Chronic Pain patient has f/u with pain management as outpatient she is to not take opioids tonight and dose adjustment in AM DVT ppx Lovenox FULL CODE
[2017-02-13] MEDS ORDERED: PRED10TA PO (15:37)
[2017-02-13] MEDS ORDERED: LEVO-459 PO (15:37)
[2017-02-13] MEDS ORDERED: OXYCODONE HCL IR 5 MG TAB (IMMEDIATE RELEASE) PO PRN ×2 (16:15→20:15)
[2017-02-13] MEDS: LEVOFLOXACIN / D5W 500 MG in PREMIXED IN D5W 100 ML IV SCH (17:17)
[2017-02-13] MEDS ORDERED: HydrALAZINE HCL 20 MG/ML VIAL IV. STA (18:37)
[2017-02-13] MEDS: CLONAZEPAM 1 MG TAB PO PRN (20:21)
[2017-02-13] MEDS: GABAPENTIN 300 MG CAP PO SCH (20:21)
[2017-02-13] MEDS: ENOXAPARIN 40 MG/0.4 ML SYR SC SCH (20:22)
[2017-02-14] MEDS: ALBUT/IPRATROP 3MG/0.5MG NEB 3 ML VIAL INH SCH ×2 (01:51→07:55)
[2017-02-14] MEDS: SODIUM CHLORIDE 0.9% 1000ML 1,000 ML IV SCH (04:39)
[2017-02-14] MEDS: METHYLPREDNISOLONE IV 40 MG in SYRINGE 0 ML IV SCH (06:15)
[2017-02-14 06:36] LABS: HEMATOCRIT 31.4 % (37-47); MEAN CELL VOLUME 84.2 fL (80-100); MEAN CORPUSCULAR HEMOGLOBIN 27.1 pg (25-34); MEAN CORPUSCULAR HGB CONC 32.2 g/dl (32-36); MEAN PLATELET VOLUME 9.3 fL (7.4-10.4); PLATELET COUNT 187 K/uL (130-400); RED BLOOD COUNT 3.73 M/uL (4.2-5.4)
[2017-02-14 07:35] LABS: BUN/CREATININE RATIO 27.4 (10-20); CALCIUM 8.7 mg/dl (8.5-10.1); CREATININE 0.67 mg/dl (0.60-1.20); MAGNESIUM 2.7 mg/dl (1.8-2.4); POTASSIUM 3.7 mmol/L (3.5-5.1)
[2017-02-14 07:43] VITALS: BP 104/81; PULSE 73; TEMP 36.9; O2SAT 95
[2017-02-14 07:56] VITALS: PULSE 77; O2SAT 94
[2017-02-14 10:51] VITALS: O2SAT 95
--- NOTE | 2017-02-14 12:01 | Progress Note ---
Subjective Date of Service: Feb 14, 2017. Subjective Pt evaluation today including: conversation w/ patient, physical exam, lab review, review of studies, review of inpatient medication list Saw/examined the patient in room 250 Feeling about the same as yesterday Has some flight of ideas, and disorganized thoughts she is awake/alert, oriented x 3 Problem List Medical Problems: (1) Altered mental status Status: Acute (2) Altered mental status Status: Acute (3) Exacerbation of multiple sclerosis Status: Acute (4) Fall Status: Acute (5) Pneumonia Status: Acute (6) Respiratory failure Status: Acute (7) Respiratory failure, acute Status: Acute (8) Sacral contusion Status: Acute Review of Systems Constitutional: + weakness, No chills, No fever Respiratory: No shortness of breath Cardiac: No chest pain Abdomen: No diarrhea, No nausea, No pain, No vomiting Medications Current Inpatient Medications Medications (Trade) Dose Ordered Sig/Elodia Route Start Time Stop Time Status Last Admin Dose Admin Sodium Chloride (Nss 1000ml) 1,000 ml @ 125 mls/hr Q8H IV 02/12/17 14:00 03/14/17 13:59 02/14/17 04:39 125 MLS/HR Enoxaparin Sodium (Lovenox Inj) 40 mg QPM SC 02/12/17 21:00 03/14/17 20:59 02/13/17 20:22 40 MG Acetaminophen (Tylenol Tab) 650 mg Q4H PRN PO 02/12/17 14:00 03/14/17 13:59 02/12/17 15:55 650 MG Ondansetron HCl 4 mg 4 mg Q6H PRN IV 02/12/17 14:00 03/14/17 13:59 Methylprednisolone Sodium Succinate 40 mg/Syringe 0.64 ml @ 1.5 mls/min Q8 IV 02/12/17 15:30 03/14/17 15:29 02/14/17 06:15 1.5 MLS/MIN Levofloxacin/Prmx (Levaquin / D5W/ Premixed D5W) 100 ml @ 100 mls/hr Q24H IV 02/12/17 16:00 02/19/17 15:59 02/13/17 17:17 100 MLS/HR Albuterol/ Ipratropium (Duoneb) 3 ml Q2H PRN INH 02/12/17 15:30 03/14/17 15:29 Haloperidol Lactate (Haldol Inj) 2.5 mg Q4H PRN IV 02/12/17 17:00 03/14/17 16:59 02/12/17 17:28 2.5 MG Clonazepam (Klonopin Tab) 2 mg QID PRN PO 02/12/17 17:45 03/14/17 17:44 02/13/17 20:21 2 MG Gabapentin (Neurontin Cap) 900 mg HS PO 02/12/17 21:00 03/14/17 20:59 02/13/17 20:21 900 MG Tizanidine HCl (Zanaflex Tab) 10 mg HS PO 02/12/17 21:00 03/14/17 20:59 02/13/17 20:21 10 MG Ioversol (Optiray 320) 100 ml UD PRN IV 02/12/17 22:30 02/16/17 22:29 Oxycodone HCl (Roxicodone Immediate Rel Tab) 10 mg Q4H PRN PO 02/13/17 20:15 02/27/17 20:14 02/13/17 20:24 10 MG Objective Vital Signs Date Time Temp Pulse Resp B/P Pulse Ox O2 Delivery O2 Flow Rate FiO2 02/14/17 10:51 95 Room Air 02/14/17 08:00 Nasal Cannula 2.0 02/14/17 07:56 77 18 94 Room Air 02/14/17 07:43 36.9 73 18 104/81 95 Room Air 02/14/17 00:01 Nasal Cannula 2.0 02/13/17 23:28 36.7 72 18 172/85 98 02/13/17 20:07 166/89 02/13/17 20:00 Nasal Cannula 2.0 02/13/17 19:55 88 22 93 Nasal Cannula 4.0 02/13/17 18:23 36.8 88 18 165/89 96 Nasal Cannula 2.0 02/13/17 17:42 36.8 89 18 93 4.0 02/13/17 16:00 Nasal Cannula 4.0 02/13/17 15:58 93 Nasal Cannula 2.0 02/13/17 15:37 36.8 89 18 171/90 85 Room Air 02/13/17 15:22 81 22 93 Nasal Cannula 4.0 02/13/17 12:00 Nasal Cannula 4.0 Physical Exam General Appearance: no apparent distress Respiratory/Chest: lungs clear, normal breath sounds, no respiratory distress, no accessory muscle use Cardiovascular: regular rate, rhythm, no edema, no murmur Extremities: normal inspection, no pedal edema Neurologic/Psychiatric: alert, oriented x 3, + pertinent finding (anxious affect; flight of ideas) Laboratory Results Last 24 Hours Test 02/14/17 06:10 White Blood Count 9.90 K/uL Red Blood Count 3.73 M/uL Hemoglobin 10.1 g/dL Hematocrit 31.4 % Mean Corpuscular Volume 84.2 fL Mean Corpuscular Hemoglobin 27.1 pg Mean Corpuscular Hemoglobin Concent 32.2 g/dl RDW Standard Deviation 44.9 fL RDW Coefficient of Variation 14.5 % Platelet Count 187 K/uL Mean Platelet Volume 9.3 fL Sodium Level 146 mmol/L Potassium Level 3.7 mmol/L Chloride Level 115 mmol/L Carbon Dioxide Level 24 mmol/L Anion Gap 7.0 mmol/L Blood Urea Nitrogen 18 mg/dl Creatinine 0.67 mg/dl Est Creatinine Clear Calc Drug Dose 71.5 ml/min Estimated GFR () 111.5 Estimated GFR (Non- 96.2 BUN/Creatinine Ratio 27.4 Random Glucose 171 mg/dl Calcium Level 8.7 mg/dl Magnesium Level 2.7 mg/dl Total Creatine Kinase 475 U/L Assessment and Plan This is a 61 year old female with PMH of depression/anxiety, QUANTITY SURVEYOR demyelination, MS follows with neurology, COPD, fibromyalgia - presents with altered mental status and respiratory failure Altered Mental Status Toxic Encephalopathy 02/14 patient is doing better today seems closer to her baseline patient told to stop taking Ativan she is to see pain management to adjust dosage of oxycodone should probably see a psychiatrist as outpatient 02/13 likely due to polypharmacy patient is on multiple medications that can alter mental status and consciousness She takes muscle relaxants, benzos, opioids, etc. These medications have to be adjusted as outpatient - patient to see pain management on 02/14 Her medications had been held, but slowly restarted Acute Respiratory Failure in the setting of severe COPD 02/14 will d/c on prednisone 40mg x 5 days will d/c on Levaquin x 5 days 02/13 patient presented with hypoxia initially started on bipap in the ER that had been weaned off prior to admission to the floor now weaned off of O2 and saturating well no respiratory distress currently possibly from COPD vs. polypharmacy Lactic Acidosis - resolved lactic acid level > 5 IVFs given lactic acid level now 1.2 likely due to hypoxia Rhabdomyolysis - improved CPK trending down from 1999 --> 1300 repeat CPK in 4-5 days Chronic Pain patient has f/u with pain management as outpatient she is to not take opioids tonight and dose adjustment in AM DVT ppx Lovenox FULL CODE
--- NOTE | 2017-02-14 12:16 | Discharge Instructions ---
Discharge Instructions Date of Service Feb 13, 2017. Admission Reason for Admission: Respiratory Failure Discharge Discharge Diagnosis / Problem: Altered Mental Status; COPD exacerbation/ respiratory failure Discharge Goals Goal(s): Decrease discomfort, Improve function Activity Recommendations Activity Limitations: resume your previous activity . Instructions / Follow-Up Instructions / Follow-Up Please follow-up with Dr. Smith on February 21 @ 12:55PM * Please stop taking Ativan * You should follow-up with pain management as an outpatient * You will be discharged with prednisone 40mg x 5 days and Levaquin for five days Current Hospital Diet Patient's current hospital diet: Low Sodium Diet (2gm Na), AHA Diet (Heart Healthy) Discharge Diet Recommended Diet: AHA Diet (Heart Healthy) Pending Studies Studies pending at discharge: no Laboratory Results Hemoglobin A1c Test 02/12/17 11:22 Range/Units Estimated Average Glucose 120 mg/dl Hemoglobin A1c 5.8 H 4.5-5.6 % Medical Emergencies . Who to Call and When: Medical Emergencies: If at any time you feel your situation is an emergency, please call 911 immediately. . Non-Emergent Contact Non-Emergency issues call your: Primary Care Provider . . "Provider Documentation" section prepared by Piper Javier. . VTE Core Measure Inpt VTE Proph given/why not?: Enoxaparin (Lovenox)SQ
--- NOTE | 2017-02-14 12:18 | Discharge Summary ---
Discharge Summary Date of Service Feb 14, 2017. Discharge Summary Admission Date: Feb 12, 2017 at 13:36 Discharge Date: Feb 13, 2017 Discharge Disposition: Home with services Principal Diagnosis: Toxic Encephalopathy Acute COPD exacerbation Acute Respiratory Failure Medication Reconciliation New Medications: Levofloxacin (Levaquin) 500 Mg Tab 500 MG PO DAILY for 5 Days, #5 TABS Prednisone Tab (Prednisone) 10 Mg Tab 40 MG PO DAILY for 5 Days, #20 TAB Continued Medications: Albuterol Hfa (Ventolin Hfa) 200 Puffs/84839 Mcg Aers 2 PUFFS INH QID PRN for Shortness of Breath, #1 INHALER Clonazepam (Klonopin) 2 Mg Tab 2 MG PO QID PRN for Anxiety, TAB Gabapentin (Neurontin) 300 Mg Cap 900 MG PO HS, CAP Multiple Vitamin (Multivitamin) 1 Tab Tab 1 TAB PO DAILY for 90 Days, #90 TAB 3 Refills Tizanidine Hcl (Tizanidine Hcl) 4 Mg Cap 10 MG PO HS Discontinued Medications: Amitriptyline Hcl (Elavil) 100 Mg Tab 100 MG PO HS, TAB Lorazepam (Ativan) 1 Mg Tab 1 MG PO TID PRN for Anxiety, TAB Oxycodone Hcl (Oxycodone Hcl) 10 Mg Tab 20 MG PO Q4H PRN for back pain for 10 Days Admission Information HPI (per Admitting provider): 61 year old female who presents to the ER with altered mental status. Due to patient's current mental status, history is limited from her. History is obtained from and ER documentation. reports that patient has had increasing generalized weakness for the past few days. She has fallen multiple times. She has chronic right sided weakness which is unchanged. He reports she normally can ambulate however has required a wheelchair the past few days. He also notes an increased cough. No other symptoms were reported. This morning when the caregiver arrived, patient was lethargic and confused. EMS was called and patient was found to be 86% on room air. She as given neb, solumedrol, and placed on oxygen. Upon arrival to the ER, patient was placed on BiPap. During my exam, patient is awake however somewhat agitated and confused. I was able to take her off BiPap and she is saturating well on 3L. She is mildly tachycardic, BP stable. POC Lactic acid is 2.06. WBC 12K. CXR is clear. Physical Exam (per Admitting): General Appearance: + mild distress (agitated) Head: normocephalic Eyes: normal inspection ENT: hearing grossly normal Neck: supple, no JVD Respiratory/Chest: no respiratory distress, + decreased breath sounds Cardiovascular: no edema, normal peripheral pulses, + tachycardia (regular rhythm) Abdomen/GI: normal bowel sounds, non tender, soft Extremities/Musculoskelatal: normal inspection, no calf tenderness Neurologic/Psych: alert, oriented x 3, + pertinent finding (agitated with poor insight, unable to recall events; chronic right sided weakness noted) Skin: normal color, warm/dry Hospital Course This is a 61 year old female with PMH of depression/anxiety, BULLDOZER ENGINEER demyelination, MS follows with neurology, COPD, fibromyalgia - presents with altered mental status and respiratory failure Altered Mental Status Toxic Encephalopathy 02/14 patient is doing better today seems closer to her baseline patient told to stop taking Ativan she is to see pain management to adjust dosage of oxycodone should probably see a psychiatrist as outpatient 02/13 likely due to polypharmacy patient is on multiple medications that can alter mental status and consciousness She takes muscle relaxants, benzos, opioids, etc. These medications have to be adjusted as outpatient - patient to see pain management on 02/14 Her medications had been held, but slowly restarted Acute Respiratory Failure in the setting of severe COPD 02/14 will d/c on prednisone 40mg x 5 days will d/c on Levaquin x 5 days 02/13 patient presented with hypoxia initially started on bipap in the ER that had been weaned off prior to admission to the floor now weaned off of O2 and saturating well no respiratory distress currently possibly from COPD vs. polypharmacy Lactic Acidosis - resolved lactic acid level > 5 IVFs given lactic acid level now 1.2 likely due to hypoxia Rhabdomyolysis - improved CPK trending down from 1999 --> 1300 repeat CPK in 4-5 days Chronic Pain patient has f/u with pain management as outpatient she is to not take opioids tonight and dose adjustment in AM DVT ppx Lovenox FULL CODE Total time spent on discharge = 40 minutes This includes examination of the patient, discharge planning, medication reconciliation, and communication with other providers. Discharge Instructions Please follow-up with Dr. Smith on February 21 @ 12:55PM * Please stop taking Ativan * You should follow-up with pain management as an outpatient * You will be discharged with prednisone 40mg x 5 days and Levaquin for five days
[2017-02-14 12:28] VITALS: BP 104/81; PULSE 77; TEMP 36.9; O2SAT 95
[2017-02-14] MEDS ORDERED: IPRATROPIUM BROMIDE/ALBUTEROL respimat INH INH SCH (13:00)
[2017-02-20 19:49] LABS: COD UR NEGATIVE NG/ML (CUTOFF=50); HYDROCOD UR NEGATIVE NG/ML (CUTOFF=50); HYDROMOR UR NEGATIVE NG/ML (CUTOFF=50); HYDROXYETHYLFLURAZEPAM CONF NEGATIVE NG/ML (CUTOFF=50); HYDROXYMIDAZOLAM NEGATIVE NG/ML (CUTOFF=50); HYDROXYTRIAZOLAM CONF NEGATIVE NG/ML (CUTOFF=50); MORPHINE UR NEGATIVE NG/ML (CUTOFF=50); NORHYDROCODONE CONF UR NEGATIVE NG/ML (CUTOFF=50); OXYMORPH UR 4330 NG/ML (CUTOFF=50); TEMAZEPAM CONF NEGATIVE NG/ML (CUTOFF=50)
[2017-05-26] MEDS ORDERED: CLON2TAB3 PO ×2 (10:57→18:11)
[2017-05-26] MEDS ORDERED: VNTHFA/IN INH (12:56)
[2017-05-26] MEDS ORDERED: MULTTAB58 PO (14:04)
[2017-05-28] MEDS ORDERED: NRV5 PO (16:07)
[2017-05-28] MEDS ORDERED: BACL20TA PO (16:07)
[2017-05-28] MEDS ORDERED: VTMD1000 PO (16:15)
[2017-05-28] MEDS ORDERED: MCRK20 PO (16:17)
== END 2017-02-14 12:53 | disposition home or self-care (01) | DRG 91 ==
LOC: ENRESERVTM → ENRESERVDT → EDBD 11:16 → C.EDB 11:17 → C.2T 13:36 → C.MS2W 02-13 18:13
PROVIDERS: ADMIT Internal Medicine; ATTEND Family Medicine
DX: G92 Toxic encephalopathy (principal); J96.01 Acute respiratory failure with hypoxia; J44.1 Chronic obstructive pulmonary disease with (acute) exacerbation; E87.2 Acidosis; M62.82 Rhabdomyolysis; T42.4X5A Adverse effect of benzodiazepines, initial encounter; T40.2X5A Adverse effect of other opioids, initial encounter; T42.6X5A Adverse effect of other antiepileptic and sedative-hypnotic drugs, initial encounter; T43.015A Adverse effect of tricyclic antidepressants, initial encounter; R00.0 Tachycardia, unspecified; G81.91 Hemiplegia, unspecified affecting right dominant side; R29.6 Repeated falls; G89.29 Other chronic pain; G35 Multiple sclerosis; M79.7 Fibromyalgia; F32.9 Major depressive disorder, single episode, unspecified; F41.9 Anxiety disorder, unspecified; F17.210 Nicotine dependence, cigarettes, uncomplicated; Z96.641 Presence of right artificial hip joint; Z79.52 Long term (current) use of systemic steroids; Z79.891 Long term (current) use of opiate analgesic; Z79.899 Other long term (current) drug therapy

== ENCOUNTER → 2017-03-06 | Outpatient (CLI) | payer OTHER ==
[~2017-03-06] MED LIST changes: +ACET-1138 PO; -ALBU1AER9 INH; -AMIT100T2 PO; +AMIT50TA3 PO; +ASPEC325 PO; +BACL20TA PO; -BENA20TA11 PO; -CALCTAB7 PO; +CLON2TAB3 PO; +IPRASOL4 INH; +LEVO-459 PO; -LVQ500 PO; +MCRK20 PO; +MORP1TAB11 PO; +MULTTAB58 PO; +NICO21DI35 TD; +NRV5 PO; +PREG100C PO; +RXC5 PO; -TIZA2CAP PO; +VNTHFA/IN INH; +VTMD1000 PO
[2017-03-06 17:06] LABS: BASO % 0.3 %; BASO ABS # 0.02 K/uL (0-0.2); COMPLETE YES; EOS % 1.8 %; HEMATOCRIT 40.5 % (37-47); IG% 0.1 %; LYMPH % 27.9 %; LYMPH ABS # 2.15 K/uL (1.2-3.4); MEAN CELL VOLUME 85.1 fL (80-100); MEAN CORPUSCULAR HEMOGLOBIN 27.3 pg (25-34); MEAN CORPUSCULAR HGB CONC 32.1 g/dl (32-36); MEAN PLATELET VOLUME 9.4 fL (7.4-10.4); MONO % 4.5 %; NEUT % 65.4 %; PLATELET COUNT 304 K/uL (130-400); RED BLOOD COUNT 4.76 M/uL (4.2-5.4); WHITE BLOOD COUNT 7.71 K/uL (4.8-10.8)
[2017-03-06 17:13] LABS: URINE APPEARANCE CLEAR (CLEAR); URINE BILIRUBIN NEG (NEG); URINE COLOR YELLOW; URINE EPITHELIAL CELL AUTO 0-5 /lpf (0-5); URINE NITRITE NEG (NEG); URINE PH 6.5 (4.5-7.5); URINE SPECIFIC GRAVITY 1.013 (1.000-1.030); UROBILINOGEN NEG (NEG)
[2017-03-06 17:14] LABS: MANUAL MICROSCOPIC REQUIRED? NO; PARTIAL THROMBOPLASTIN RATIO 1.2; PROTHROMBIN TIME (PATIENT) 10.6 SECONDS (9.0-12.0); REVIEW REQ? NO
--- NOTE | 2017-03-06 17:16 | DIAGNOSTIC IMAGING REPORT ---
TWO VIEW CHEST CLINICAL HISTORY: Preoperative examination. FINDINGS: PA and lateral chest radiographs are compared to study dated 02/12/2017 and correlated with chest CT dated 02/27/2016. The PA view is degraded by patient rotation. The cardiomediastinal silhouette is normal for projection. Chronic interstitial thickening is unchanged. Bibasilar airspace opacities are identified. No pleural effusion or pneumothorax is identified. Apical scarring is observed. The skeletal structures are osteopenic. Degenerative change and scoliosis is present in the thoracic spine. IMPRESSION: Bibasilar airspace opacities persist. This could represent atelectasis versus an infectious/inflammatory pneumonitis. Clinical correlation will be required. Electronically signed by: Ki Padilla M.D. 03/06/2017 5:15 PM Dictated Date/Time: 03/06/2017 5:13 PM
[2017-03-06 17:39] LABS: BLOOD UREA NITROGEN 10 mg/dl (7-18); BUN/CREATININE RATIO 13.6 (10-20); CALCIUM 9.2 mg/dl (8.5-10.1); CARBON DIOXIDE 29 mmol/L (21-32); CHLORIDE 105 mmol/L (98-107); CREATININE 0.74 mg/dl (0.60-1.20); GLUCOSE 107 mg/dl (70-99); POTASSIUM 4.2 mmol/L (3.5-5.1); SODIUM 140 mmol/L (136-145)
== END | disposition home or self-care (01) ==
LOC: C.RAD 16:12
DX: S82.201D Unspecified fracture of shaft of right tibia, subsequent encounter for closed fracture with routine healing (principal); X58.XXXD Exposure to other specified factors, subsequent encounter; S82.201S Unspecified fracture of shaft of right tibia, sequela; X58.XXXS Exposure to other specified factors, sequela

== ENCOUNTER 2017-03-07 12:21 | Observation (INO) | payer OTHER ==
[2017-03-07] VITALS (7 sets, daily range): BP systolic 98–166; BP diastolic 66–97; PULSE 80–101; TEMP 36.4–37.2; O2SAT 90–99; Ht 152.4 cm; Wt 58.0 kg
[~2017-03-07] VITALS: Ht 152.4 cm; Wt 58.0 kg
--- NOTE | 2017-03-07 12:08 | History & Physical Bridge Note ---
H&P Re-Evaluation Bridge Note: I have examined the patient, reviewed the History & Physical and in the interval since the performance of the History & Physical I have noted the following changes of clinical significance: No changes noted
--- NOTE | 2017-03-07 12:20 | History and Physical ---
History & Physical Date March 07, 2017. Chief Complaint Ritght tib fib fracture History of Present Illness The patient is a 62 year old female with complaints of Past Medical/Surgical History Medical Problems: (1) Anxiety (2) COPD (chronic obstructive pulmonary disease) (3) Depression (4) Dyslipidemia (5) HTN (hypertension) (6) Left patella fracture (7) Multiple sclerosis (8) Persistent insomnia (9) Restless leg syndrome Surgical Problems: (1) History of total right hip arthroplasty Additional History Hepatic Disease: No Endocrine Disorder: No Kidney Disease: No Hypertension: No Heart Disease: No Bleeding Tendencies: No Infectious Diseases: No Other: MS Allergies Coded Allergies: No Known Allergies (Verified , 03/13/15) Home Medications Scheduled Gabapentin (Neurontin), 900 MG PO HS Multiple Vitamin (Multivitamin), 1 TAB PO DAILY Tizanidine Hcl (Tizanidine Hcl), 10 MG PO HS Scheduled PRN Albuterol Hfa (Ventolin Hfa), 2 PUFFS INH QID PRN for Shortness of Breath Clonazepam (Klonopin), 2 MG PO QID PRN for Anxiety Physical Examination Skin: warm/dry Eyes: normal inspection ENT: normal ENT inspection Head: normocephalic Neck: supple Respiratory/Chest: lungs clear Cardiovascular: regular rate, rhythm Abdomen / GI: normal bowel sounds Back: normal inspection Extremities: + pertinent finding (Casted right leg) Neurologic/Psych: + pertinent finding (Weakness on right side due to MS) Diagnosis Displaced right tib fib fracture ASA Classification: ASA Class II Plan of Treatment Closed locked IM nailing
[~2017-03-07 12:21] MED LIST changes: -ACET-1138 PO; -AMIT50TA3 PO; -ASPEC325 PO; -BACL20TA PO; +BUPIVACAINE 0.5 % 5 MG/1 ML PF 10ML VIAL ONE; +CEFAZOLIN 1000MG/55 ML D5W IV SCH; -CLON2TAB3 PO; +DEXAMETHASONE SOD INJ 4 MG/ML VIAL ONE; +FENTANYL CITRATE INJ 50 MCG/1 ML 2 ML VIAL ONE; -IPRASOL4 INH; +LACTATED RINGER'S 1000ML 1,000 ML IV SCH; +LIDOCAINE HCL 2% 2 ML VIAL (20MG/ML) ONE; -MCRK20 PO; +MIDAZOLAM HCL 1 MG/ML 2ML VIAL ONE; -MORP1TAB11 PO; -MULTTAB58 PO; -NICO21DI35 TD; -NRV5 PO; +ONDANSETRON INJ 2 MG/ML 2 ML VIAL ONE; -OXYC-164 PO; -PREG100C PO; +PROPOFOL IV EMULSION 10 MG/ML 20 ML VIAL IV ONE; -RXC5 PO; -VNTHFA/IN INH; -VTMD1000 PO
[2017-03-07] MEDS ORDERED: ALBUT/IPRATROP 3MG/0.5MG NEB 3 ML VIAL INH ONE (12:45)
[2017-03-07] MEDS ORDERED: EpHEDrine SULFATE INJ 50 MG/ML AMP IV PRN (12:45)
[2017-03-07] MEDS ORDERED: ATROPINE SULFATE 0.1 MG/ML 5ML SYR IV PRN (12:45)
[2017-03-07] MEDS ORDERED: ONDANSETRON INJ 2 MG/ML 2 ML VIAL IV PRN ×2 (12:45→15:00)
[2017-03-07] MEDS ORDERED: FENTANYL CITRATE INJ 50 MCG/1 ML 2 ML VIAL ONE ×2 (13:27→13:44)
[2017-03-07] MEDS ORDERED: ALBUTEROL HFA INHALER 8.5 GM INH ONE (13:29)
[2017-03-07] MEDS ORDERED: ONDANSETRON INJ 2 MG/ML 2 ML VIAL ONE (13:38)
[2017-03-07] MEDS ORDERED: DEXAMETHASONE SOD INJ 4 MG/ML VIAL ONE (13:38)
[2017-03-07] MEDS ORDERED: HYDROmorphone INJ 2 MG/ML SYR/VIAL ONE (14:04)
[2017-03-07] MEDS ORDERED: LABETALOL HCL IV 5 MG/ML 20ML IV ONE (14:23)
--- NOTE | 2017-03-07 14:46 | [facility] Post Operative Brief Note ---
Immediate Operative Summary Operative Date March 07, 2017. Pre-Operative Diagnosis Right Tibial Fracture Post-Operative Diagnosis Right Tibial Fracture Procedure(s) Performed Right Tibial Inter Medullary Nailing Surgeon Dr. Nuñez Vessel Scrapper Helper Surgeon(s) Jose Cortez PA-C Estimated Blood Loss 100 cc Findings as above Specimens none per surgeon Disposition Recovery Room / PACU
--- NOTE | 2017-03-07 14:47 | DIAGNOSTIC IMAGING REPORT ---
INTRAOPERATIVE RIGHT TIBIA AND FIBULA 4 VIEWS CLINICAL HISTORY: Fracture COMPARISON STUDY: No previous studies for comparison. FINDINGS: 60 seconds of fluoroscopic time was utilized. 4 intraoperative fluoroscopic spot images are provided for interpretation. There is an internally fixated oblique fracture of the distal tibial diaphysis. The fracture has been fixated with an intramedullary keith which contains 2 proximal and 2 distal transverse screws. The distal fragment is laterally displaced by approximately one quarter shaft width. There is an oblique fracture of the distal fibula. The distal fragment is posteriorly displaced by one third shaft width. IMPRESSION: Fractures of the distal tibia and fibula. The distal tibial fracture has been fixated with an intramedullary keith Electronically signed by: Canelo Vernon M.D. 03/07/2017 2:46 PM Dictated Date/Time: 03/07/2017 2:43 PM
[2017-03-07] MEDS ORDERED: ALUMINUM/MAGNESIUM/SIMETH (MAALOX MAX) 30 ML UDC PO PRN (15:00)
[2017-03-07] MEDS ORDERED: ZOLPIDEM TARTRATE 5 MG TAB PO PRN (15:00)
[2017-03-07] MEDS ORDERED: ALBUTEROL HFA 8 GM INHALER INH PRN (15:00)
[2017-03-07] MEDS ORDERED: METOCLOPRAMIDE HCL INJ 5 MG/ML 2 ML VIAL IV PRN (15:00)
[2017-03-07] MEDS ORDERED: MoRPHine SULFATE 2 MG/ML CARP IV PRN (15:00)
[2017-03-07] MEDS ORDERED: CLONAZEPAM 1 MG TAB PO PRN (15:00)
[2017-03-07] MEDS ORDERED: MAGNESIUM HYDROXIDE SUSP 30 ML UDC PO PRN (15:00)
[2017-03-07] MEDS: FENTANYL CITRATE INJ 50 MCG/1 ML 2 ML VIAL IV PRN ×4 (15:09→15:35)
--- NOTE | 2017-03-07 15:28 | OPERATIVE REPORT ---
DATE OF OPERATION: 03/07/2017 PREOPERATIVE DIAGNOSIS: Displaced tib-fib fracture, right leg. POSTOPERATIVE DIAGNOSIS: Displaced tib-fib fracture, right leg. PROCEDURE: Closed locked intramedullary nailing tib-fib fracture, right leg. SURGEON: Dr. Nuñez. MANAGING SUPERVISOR: Jose Cortez PA-C. ANESTHESIA: General. COMPLICATIONS: None. DESCRIPTION OF PROCEDURE: Following induction of adequate general anesthesia, the patient's right leg was prepped and draped in usual sterile manner. Limb was exsanguinated with elevation and tourniquet was inflated to 300 mmHg. Longitudinal incision made over the median parapatellar area. Subcutaneous tissue was sharply dissected. Electrocautery was used for hemostasis. The joint capsule was opened and the tibial insertion point was noted with the drill tipped guidewire. The awl was started, the guidewire was reversed and using a blunt tip first guidewire was placed intramedullary The opening drill was taken to a depth of roughly 80 mm and the beaded tipped guidewire was placed traversing the fracture taking the tip to the epiphyseal scar. The knee was then reamed using intramedullary reaming device to a diameter of 9.5 mm diameter and a measuring guide was used to measure nail length and a 300 mm nail was impacted into position. It was locked proximally using the outrigger and distally using freehand technique. The wounds were irrigated and closed using Dexon and donna. Sterile dressing of Adaptic, 4 x 4's, sterile Webril and a posterior plaster splint was applied. The patient tolerated the procedure well. I attest to the content of the Intraoperative Record and any orders documented therein. Any exceptio ns are noted below.
--- NOTE | 2017-03-07 15:30 | DIAGNOSTIC IMAGING REPORT ---
RIGHT TIBIA/FIBULA 2 VIEWS ROUTINE CLINICAL HISTORY: Fracture. Postop study COMPARISON: None. DISCUSSION: There is air within the right knee joint space consistent with recent surgery. The patient's oblique fracture of the distal tibial diaphysis has been fixated with an intramedullary keith which is fixated with approximately and distally with 2 screws. The distal fragment is laterally displaced x 5 mm. There is a suspected distal fibular fracture which is not well demonstrated on this study. The fine bony detail is obscured by posterior plaster splint. IMPRESSION: Internally fixated fracture of the distal tibial diaphysis Electronically signed by: Canelo Vernon M.D. 03/07/2017 3:28 PM Dictated Date/Time: 03/07/2017 3:26 PM
--- NOTE | 2017-03-07 15:58 | Anesthesiology Progress Note ---
Anesthesia Post Op Note Date & Time March 07, 2017 at 15:57 Vital Signs Pain Intensity: 4 Vital Signs Past 12 Hours Date Time Temp Pulse Resp B/P Pulse Ox O2 Delivery O2 Flow Rate FiO2 03/07/17 15:50 36.8 81 12 184/81 99 Nasal Cannula 4 03/07/17 15:40 80 16 159/95 98 Nasal Cannula 4 03/07/17 15:30 82 19 182/94 99 Nasal Cannula 4 03/07/17 15:20 83 17 174/95 96 Mask 5 03/07/17 15:10 82 17 181/83 93 Mask 5 03/07/17 15:01 36.8 82 14 169/93 95 Mask 5 03/07/17 12:18 36.9 101 20 140/93 90 Room Air Notes Mental Status: alert / awake / arousable, participated in evaluation Pt Amnestic to Procedure: Yes Nausea / Vomiting: adequately controlled Pain: adequately controlled Airway Patency, RR, SpO2: stable & adequate BP & HR: stable & adequate Hydration State: stable & adequate Anesthetic Complications: no major complications apparent
[2017-03-07] MEDS ORDERED: MoRPHine SULFATE 10 MG/ML CARP/VIAL IV PRN (16:15)
[2017-03-07] MEDS: D5W AND 1/2NSS + 20MEQ KCL 1,000 ML IV SCH (17:32)
[2017-03-07] MEDS: FERROUS GLUCONATE 324 MG TAB PO SCH (17:32)
[2017-03-07] MEDS: MoRPHine SULFATE 4 MG/ML 1 ML CARP\\VIAL IV PRN ×2 (17:48→20:26)
[2017-03-07] MEDS: OXYCODONE HCL IR 5 MG TAB (IMMEDIATE RELEASE) PO PRN (19:28)
[2017-03-07] MEDS: DOCUSATE SODIUM 100 MG CAP PO SCH (20:21)
[2017-03-07] MEDS ORDERED: GABAPENTIN 300 MG CAP PO SCH (21:00)
[2017-03-07] MEDS: CEFAZOLIN IV 1,000 MG in DEXTROSE 5% 50ML 50 ML IV SCH (21:50)
[2017-03-07] MEDS: ACETAMINOPHEN 500 MG TAB PO SCH (21:52)
[2017-03-08] MEDS: D5W AND 1/2NSS + 20MEQ KCL 1,000 ML IV SCH (03:21)
[2017-03-08 03:22] VITALS: BP 147/90; PULSE 90; TEMP 37.2; O2SAT 97
[2017-03-08] MEDS: OXYCODONE HCL IR 5 MG TAB (IMMEDIATE RELEASE) PO PRN ×2 (03:51→10:22)
[2017-03-08] MEDS: CEFAZOLIN IV 1,000 MG in DEXTROSE 5% 50ML 50 ML IV SCH (05:28)
[2017-03-08] MEDS: ACETAMINOPHEN 500 MG TAB PO SCH (06:18)
[2017-03-08] MEDS: MoRPHine SULFATE 4 MG/ML 1 ML CARP\\VIAL IV PRN (06:19)
[2017-03-08 06:23] LABS: HEMATOCRIT 36.3 % (37-47); MEAN CELL VOLUME 85.4 fL (80-100); MEAN CORPUSCULAR HEMOGLOBIN 27.1 pg (25-34); MEAN CORPUSCULAR HGB CONC 31.7 g/dl (32-36); MEAN PLATELET VOLUME 9.3 fL (7.4-10.4); PLATELET COUNT 275 K/uL (130-400); RED BLOOD COUNT 4.25 M/uL (4.2-5.4); WHITE BLOOD COUNT 8.38 K/uL (4.8-10.8)
[2017-03-08 06:51] LABS: BUN/CREATININE RATIO 11.9 (10-20); CALCIUM 8.8 mg/dl (8.5-10.1); CREATININE 0.68 mg/dl (0.60-1.20); POTASSIUM 4.5 mmol/L (3.5-5.1)
[2017-03-08 07:35] VITALS: BP 132/81; PULSE 94; TEMP 37.2; O2SAT 96
--- NOTE | 2017-03-08 07:40 | Anesthesiology Progress Note ---
Anesthesia Post Op Note Date & Time March 08, 2017 at 07:40 Vital Signs Pain Intensity: 6.0 Vital Signs Past 12 Hours Date Time Temp Pulse Resp B/P Pulse Ox O2 Delivery O2 Flow Rate FiO2 03/08/17 07:35 37.2 94 16 132/81 96 2.0 03/08/17 03:22 37.2 90 14 147/90 97 Nasal Cannula 2.0 03/07/17 23:44 36.9 80 14 98/66 94 Nasal Cannula 2.0 03/07/17 19:50 Nasal Cannula 2.0 Notes Mental Status: alert / awake / arousable, participated in evaluation Pt Amnestic to Procedure: Yes Nausea / Vomiting: adequately controlled Pain: adequately controlled Airway Patency, RR, SpO2: stable & adequate BP & HR: stable & adequate Hydration State: stable & adequate Anesthetic Complications: no major complications apparent
--- NOTE | 2017-03-08 07:44 | Orthopedic Progress Note ---
Orthopedic Progress Note Date of Service March 08, 2017. Subjective Post OP Day: 1 Reports: feeling well Objective N/V intact, dressing C/D/I, toes mobile Date Time Temp Pulse Resp B/P Pulse Ox O2 Delivery O2 Flow Rate FiO2 03/08/17 07:35 37.2 94 16 132/81 96 2.0 03/08/17 03:22 37.2 90 14 147/90 97 Nasal Cannula 2.0 03/07/17 23:44 36.9 80 14 98/66 94 Nasal Cannula 2.0 03/07/17 19:50 Nasal Cannula 2.0 03/07/17 19:15 37.2 97 18 156/97 92 Nasal Cannula 2.0 03/07/17 18:15 36.4 97 16 148/87 99 Nasal Cannula 2.0 03/07/17 17:15 36.8 88 16 163/90 99 Nasal Cannula 2.0 03/07/17 16:45 37.1 86 16 164/86 99 Nasal Cannula 4.0 03/07/17 16:15 36.9 82 16 166/89 96 Nasal Cannula 4.0 03/07/17 16:15 Nasal Cannula 4.0 03/07/17 16:15 Nasal Cannula 4.0 03/07/17 16:00 82 12 166/93 100 Nasal Cannula 4 03/07/17 15:50 36.8 81 12 184/81 99 Nasal Cannula 4 03/07/17 15:40 80 16 159/95 98 Nasal Cannula 4 03/07/17 15:30 82 19 182/94 99 Nasal Cannula 4 03/07/17 15:20 83 17 174/95 96 Mask 5 03/07/17 15:10 82 17 181/83 93 Mask 5 03/07/17 15:01 36.8 82 14 169/93 95 Mask 5 03/07/17 12:18 36.9 101 20 140/93 90 Room Air Laboratory Results 24 Hours: Test 03/08/17 05:40 Hematocrit 36.3 % Hemoglobin 11.5 g/dL Assessment & Plan Assessment: 62 yo female stable POD #1 s/p IM nail right tibia Plan: 1. Med management 2. DVT prophylaxis- ASA 3. PT/OT 4. D/C planning- home
[2017-03-08] MEDS ORDERED: ACET-1138 PO (07:46)
[2017-03-08] MEDS ORDERED: RXC5 PO (07:46)
[2017-03-08] MEDS ORDERED: ASPEC325 PO (07:46)
--- NOTE | 2017-03-08 07:50 | Discharge Instructions ---
Discharge Instructions Date of Service March 08, 2017. Admission Reason for Admission: Right Tibia Fracture Discharge Discharge Diagnosis / Problem: right tibia and fibula fracture Discharge Goals Goal(s): Decrease discomfort, Improve function Activity Recommendations Activity Limitations: as noted below Weightbearing Status: Right non-weightbearing . Instructions / Follow-Up Instructions / Follow-Up Nonweightbearing right lower extremity with walker/wheelchair. It is alright to bend the knee as tolerated. Maintain dressing/splint until follow-up with MD. Frequent ice and elevation. Current Hospital Diet Patient's current hospital diet: Regular Diet Discharge Diet Recommended Diet: Regular Diet Procedures Procedures Performed: Right Tibial Inter Medullary Nailing Pending Studies Studies pending at discharge: no Laboratory Results Hemoglobin A1c Test 02/12/17 11:22 Range/Units Estimated Average Glucose 120 mg/dl Hemoglobin A1c 5.8 H 4.5-5.6 % Medical Emergencies . Who to Call and When: Medical Emergencies: If at any time you feel your situation is an emergency, please call 911 immediately. . Non-Emergent Contact Non-Emergency issues call your: Surgeon Call Non-Emergent contact if: temperature is above 101.5, your pain is not controlled, wound has increased drainage, wound has increased redness . "Provider Documentation" section prepared by Jose Cortez PA-C. . VTE Core Measure Inpt VTE Proph given/why not?: Other Anticoagulation (ASA 325mg daily) [place] Drug Monitoring Program Search Results: patient reviewed within database, no issues identified
[2017-03-08] MEDS: FERROUS GLUCONATE 324 MG TAB PO SCH (08:50)
[2017-03-08] MEDS: DOCUSATE SODIUM 100 MG CAP PO SCH (08:50)
[2017-03-08] MEDS ORDERED: ASPIRIN 325 MG ECTAB PO SCH (09:00)
[2017-03-08] MEDS ORDERED: PANTOprazole SOD 40 MG TAB PO SCH (09:00)
[2017-03-08] MEDS ORDERED: MULTIVITAMIN TAB PO SCH (09:00)
[2017-03-08 09:12] VITALS: BP 132/81; PULSE 94; TEMP 37.2; O2SAT 96
--- NOTE | 2017-03-08 09:44 | Medical Consult ---
Consultation Date of Consultation: March 08, 2017. Attending Physician: Pete Nuñez M.D. Reason for Consultation: Postop Medical Management History of Present Illness Patient seen and examined. 62 year old female with PMHx of MS, Anxiety, Fibromyalgia is seen in consultation at the request of Dr. Nuñez for postop medical management following intramedullary nailing of right tibia fracture secondary to mechanical fall at home on February 23. Patient is seen sitting in chair. She reports feeling well. Pain is well controlled. She denies fevers, chills, chest pain, SOB, nausea, vomiting, diarrhea, dysuria, calf pain and edema. She worked with PT/OT this morning and said it went well. She wants to go home today. Past Medical/Surgical History Medical Problems: (1) Anxiety Status: Chronic (2) COPD (chronic obstructive pulmonary disease) Status: Chronic (3) Depression Status: Chronic (4) Dyslipidemia Status: Chronic (5) HTN (hypertension) Status: Chronic (6) Left patella fracture Permanent Comment: requiring internal fixation repair by Dr. King 2001 Status: Resolved (7) Multiple sclerosis Status: Chronic (8) Persistent insomnia Status: Chronic (9) Restless leg syndrome Status: Chronic Surgical Problems: (1) History of total right hip arthroplasty Permanent Comment: secondary to R hip fracture; performed by Dr. Murrieta 11/27/12 Status: Resolved Family History FH: brain cancer MOTHER FH: heart attack FATHER Social History Smoking Status: Current Every Day Smoker Alcohol Use: none Marital Status: Housing Status: lives with family Allergies Coded Allergies: No Known Allergies (Verified , 03/07/17) Current Inpatient Medications Current Inpatient Medications Medications (Trade) Dose Ordered Sig/Elodia Route Start Time Stop Time Status Last Admin Dose Admin Oxycodone HCl (Roxicodone Immediate Rel Tab) 1-2 TABS FOR PAIN 1 TABLET ... Q4H PRN PO 03/07/17 15:00 03/21/17 14:59 03/08/17 03:51 10 MG Morphine Sulfate (MoRPHine SULFATE INJ) 2 mg Q2HWA PRN IV 03/07/17 15:00 03/21/17 14:59 Acetaminophen (Tylenol Tab) 1,000 mg Q8 PO 03/07/17 22:00 04/06/17 21:59 03/08/17 06:18 1,000 MG Magnesium Hydroxide (Milk Of Magnesia Susp) 30 ml Q6H PRN PO 03/07/17 15:00 04/06/17 14:59 Docusate Sodium (coLACE CAP) 100 mg BID PO 03/07/17 21:00 04/06/17 20:59 03/08/17 08:50 100 MG Diphenhydramine HCl (Benadryl Cap) 25 mg Q8H PRN PO 03/07/17 15:00 04/06/17 14:59 Al Hydrox/Mg Hydrox/Simethicone (Maalox Max Susp) 15 ml Q4H PRN PO 03/07/17 15:00 04/06/17 14:59 Zolpidem Tartrate (Ambien Tab) 5 mg HSZ PRN PO 03/07/17 15:00 04/06/17 14:59 Multivitamins (Multivitamin Tab) 1 tab QAM PO 03/08/17 09:00 04/07/17 08:59 03/08/17 08:50 1 TAB Ondansetron HCl (Zofran Inj) 4 mg Q6H PRN IV 03/07/17 15:00 04/06/17 14:59 Metoclopramide HCl (Reglan Inj) 10 mg Q6H PRN IV 03/07/17 15:00 04/06/17 14:59 Ferrous Gluconate (Ferrous Gluconate Tab) 324 mg TIDM PO 03/07/17 17:45 04/06/17 17:59 03/08/17 08:50 324 MG Pantoprazole Sodium (Protonix Tab) 40 mg QAM PO 03/08/17 09:00 04/07/17 08:59 03/08/17 08:50 40 MG Aspirin (Ecotrin Tab) 325 mg DAILY PO 03/08/17 09:00 04/07/17 08:59 03/08/17 08:50 325 MG Albuterol (Ventolin Hfa Inhaler) 2 puffs QID PRN INH 03/07/17 15:00 04/06/17 14:59 Clonazepam (Klonopin Tab) 2 mg QID PRN PO 03/07/17 15:00 04/06/17 14:59 Gabapentin (Neurontin Cap) 900 mg HS PO 03/07/17 21:00 04/06/17 20:59 03/07/17 21:51 900 MG Tizanidine HCl (Zanaflex Tab) 10 mg HS PO 03/07/17 21:00 04/06/17 20:59 03/07/17 21:55 10 MG Morphine Sulfate (MoRPHine SULFATE INJ) 4 mg Q2HWA PRN IV 03/07/17 16:15 03/21/17 16:14 03/08/17 06:19 4 MG Morphine Sulfate (MoRPHine SULFATE INJ) 6 mg Q2HWA PRN IV 03/07/17 16:15 03/21/17 16:14 Review of Systems Constitutional: No chills, No fever ENT: No nasal symptoms Respiratory: No cough, No shortness of breath Cardiovascular: No chest pain, No edema, No palpitations Abdomen: No constipation, No diarrhea, No nausea, No pain, No vomiting Musculoskeletal: No calf pain, No swelling Genitourinary - Female: No dysuria Neurologic: No numbness/tingling, No vertigo Psychiatric: No anxiety Endocrine: No fatigue Hematologic / Lymphatic: No abnormal bleeding/bruising, No clotting problems Integumentary: No itch, No rash Allergic / Immunologic: No environmental allergies Physical Exam Date Time Temp Pulse Resp B/P Pulse Ox O2 Delivery O2 Flow Rate FiO2 03/08/17 09:12 37.2 94 16 96 Room Air 03/08/17 07:35 37.2 94 16 132/81 96 2.0 03/08/17 07:25 Room Air 03/08/17 03:22 37.2 90 14 147/90 97 Nasal Cannula 2.0 03/07/17 23:44 36.9 80 14 98/66 94 Nasal Cannula 2.0 03/07/17 19:50 Nasal Cannula 2.0 03/07/17 19:15 37.2 97 18 156/97 92 Nasal Cannula 2.0 03/07/17 18:15 36.4 97 16 148/87 99 Nasal Cannula 2.0 03/07/17 17:15 36.8 88 16 163/90 99 Nasal Cannula 2.0 03/07/17 16:45 37.1 86 16 164/86 99 Nasal Cannula 4.0 03/07/17 16:15 36.9 82 16 166/89 96 Nasal Cannula 4.0 03/07/17 16:15 Nasal Cannula 4.0 03/07/17 16:15 Nasal Cannula 4.0 03/07/17 16:00 82 12 166/93 100 Nasal Cannula 4 03/07/17 15:50 36.8 81 12 184/81 99 Nasal Cannula 4 03/07/17 15:40 80 16 159/95 98 Nasal Cannula 4 03/07/17 15:30 82 19 182/94 99 Nasal Cannula 4 03/07/17 15:20 83 17 174/95 96 Mask 5 03/07/17 15:10 82 17 181/83 93 Mask 5 03/07/17 15:01 36.8 82 14 169/93 95 Mask 5 03/07/17 12:18 36.9 101 20 140/93 90 Room Air General Appearance: + pertinent finding (WD/WN 62 year old female sitting in chair in NAD ) Head: normocephalic, atraumatic Eyes: PERRL, EOMI, sclerae normal ENT: hearing grossly normal, pharynx normal Neck: supple, no JVD Respiratory/Chest: chest non-tender, lungs clear, normal breath sounds, no respiratory distress, no accessory muscle use Cardiovascular: regular rate, rhythm, no edema, no gallop, no JVD, no murmur, normal peripheral pulses Abdomen/GI: normal bowel sounds, non tender, soft Back: normal inspection, no muscle spasm Extremities/Musculoskelatal: no calf tenderness, normal capillary refill, no pedal edema, + pertinent finding (Cast intact to right leg, toes warm with good sensation ) Neurologic/Psych: alert, oriented x 3, + pertinent finding (nonfocal on gross exam ) Skin: normal color, warm/dry, no rash Lymphatic: no adenopathy Laboratory Results Last 24 Hours Test 03/08/17 05:40 White Blood Count 8.38 K/uL Red Blood Count 4.25 M/uL Hemoglobin 11.5 g/dL Hematocrit 36.3 % Mean Corpuscular Volume 85.4 fL Mean Corpuscular Hemoglobin 27.1 pg Mean Corpuscular Hemoglobin Concent 31.7 g/dl RDW Standard Deviation 44.9 fL RDW Coefficient of Variation 14.4 % Platelet Count 275 K/uL Mean Platelet Volume 9.3 fL Sodium Level 141 mmol/L Potassium Level 4.5 mmol/L Chloride Level 105 mmol/L Carbon Dioxide Level 30 mmol/L Anion Gap 6.0 mmol/L Blood Urea Nitrogen 8 mg/dl Creatinine 0.68 mg/dl Est Creatinine Clear Calc Drug Dose 70.1 ml/min Estimated GFR () 110.2 Estimated GFR (Non- 95.1 BUN/Creatinine Ratio 11.9 Random Glucose 124 mg/dl Calcium Level 8.8 mg/dl Assessment & Plan RIGHT TIBIA INTRAMEDULLARY NAILING -POD#1 By [place] -Management as per ortho to include- pain control, bowel regimen, DVT prophylaxis, PT/OT, incentive spirometry -EBL 100cc, POD#1 Hgb 11.5 - stable ANXIETY,FIBROMYALGIA -continue Tizanidine, Gabapentin, clonazepam MULTIPLE SCLEROSIS -follows with Dr. Alatorre as outpatient COPD -continue home inhalers DVT PROPHYLAXIS: per ortho DISPO:per ortho Patient seen in collaboration with Dr. Valle Thank you for this consultation. We will follow the patient with you during their hospital stay. You can reach a [facility] via pager @ . The patient was discharged prior to me seeing her, which was within two hours of this consult being placed. DO Leonard
--- NOTE | 2017-03-13 17:02 | DISCHARGE SUMMARY ---
CHIEF COMPLAINT: Right tibia fracture. Please see complete history and physical examination. HOSPITAL COURSE: The patient underwent IM nailing of right tibia fracture without complication. She tolerated the procedure well and was discharged to recovery room in stable condition. Her postoperative course was relatively uneventful. Her postoperative pain was reasonably well controlled with a combination of IV and oral pain medications. She was started on aspirin for DVT prophylaxis. She also utilized CHANELLE stockings and SCDs for additional prophylaxis. Her H\T\H was stable and did not require transfusion. A medical consult was asked for to assist in her postoperative medical management. The patient did not have any significant postoperative medical issues. She was discharged home on postoperative day 1. She will be nonweightbearing on her right lower extremity with a walker. She will maintain her dressing/splint until follow up with physician in approximately 10-14 days. She will continue her aspirin for DVT prophylaxis and follow up in 10-14 days for initial postop evaluation. JAMES
--- NOTE | 2017-03-15 10:27 | OPERATIVE REPORT ---
DATE OF OPERATION: 03/07/2017 ADDENDUM: Jose Cortez was the legal assistant. He was essential in all portions of the case including prepping, draping, surgical services asst, wound closure and dressing application. I attest to the content of the Intraoperative Record and any orders documented therein. Any exceptio ns are noted below.
[2017-05-26] MEDS ORDERED: CLON2TAB3 PO ×2 (10:57→18:11)
[2017-05-26] MEDS ORDERED: VNTHFA/IN INH (12:56)
[2017-05-26] MEDS ORDERED: MULTTAB58 PO (14:04)
[2017-05-28] MEDS ORDERED: BACL20TA PO (16:07)
[2017-05-28] MEDS ORDERED: NRV5 PO (16:07)
[2017-05-28] MEDS ORDERED: VTMD1000 PO (16:15)
[2017-05-28] MEDS ORDERED: MCRK20 PO (16:17)
== END 2017-03-08 11:18 | disposition home or self-care (01) ==
LOC: ENRESERVDT → ENRESERVTM → C.ACU 12:21 → C.3E 13:00
DX: S82.301A Unspecified fracture of lower end of right tibia, initial encounter for closed fracture (principal); S82.431A Displaced oblique fracture of shaft of right fibula, initial encounter for closed fracture; X58.XXXA Exposure to other specified factors, initial encounter; G35 Multiple sclerosis; E78.5 Hyperlipidemia, unspecified; J44.9 Chronic obstructive pulmonary disease, unspecified; I10 Essential (primary) hypertension; Z96.641 Presence of right artificial hip joint; F41.9 Anxiety disorder, unspecified; F17.200 Nicotine dependence, unspecified, uncomplicated; Z68.24 Body mass index [BMI] 24.0-24.9, adult; Z80.8 Family history of malignant neoplasm of other organs or systems; Z82.49 Family history of ischemic heart disease and other diseases of the circulatory system

== ENCOUNTER 2017-05-26 17:00 | Inpatient (IN) | payer OTHER ==
[~2017-05-26] VITALS: Ht 157.5 cm; Wt 53.3 kg
[~2017-05-26 17:00] MED LIST changes: +ACET-1138 PO; +ASPEC325 PO; -BUPIVACAINE 0.5 % 5 MG/1 ML PF 10ML VIAL ONE; -CEFAZOLIN 1000MG/55 ML D5W IV SCH; +CLON2TAB3 PO; -DEXAMETHASONE SOD INJ 4 MG/ML VIAL ONE; -FENTANYL CITRATE INJ 50 MCG/1 ML 2 ML VIAL ONE; -LACTATED RINGER'S 1000ML 1,000 ML IV SCH; -LEVO-459 PO; -LIDOCAINE HCL 2% 2 ML VIAL (20MG/ML) ONE; -MIDAZOLAM HCL 1 MG/ML 2ML VIAL ONE; +MULTTAB58 PO; -ONDANSETRON INJ 2 MG/ML 2 ML VIAL ONE; -PROPOFOL IV EMULSION 10 MG/ML 20 ML VIAL IV ONE; +RXC5 PO; +VNTHFA/IN INH
[2017-05-26] MEDS ORDERED: SODIUM CHLORIDE 0.9% 1000ML 1,000 ML IV STA ×2 (17:08)
[2017-05-26 17:53] LABS: BASO % 0.1 %; BASO ABS # 0.01 K/uL (0-0.2); COMPLETE YES; EOS % 0.1 %; HEMATOCRIT 50.5 % (37-47); IG% 0.2 %; LYMPH % 7.4 %; LYMPH ABS # 1.11 K/uL (1.2-3.4); MEAN CELL VOLUME 81.2 fL (80-100); MEAN CORPUSCULAR HEMOGLOBIN 27.3 pg (25-34); MEAN CORPUSCULAR HGB CONC 33.7 g/dl (32-36); MONO % 5.3 %; NEUT % 86.9 %; PLATELET COUNT 264 K/uL (130-400); RED BLOOD COUNT 6.22 M/uL (4.2-5.4); WHITE BLOOD COUNT 15.02 K/uL (4.8-10.8)
[2017-05-26 18:03] LABS: INR 1.1 (0.9-1.1); PARTIAL THROMBOPLASTIN RATIO 1.2; PROTHROMBIN TIME (PATIENT) 11.9 SECONDS (9.0-12.0)
[2017-05-26] MEDS ORDERED: OXYC-164 PO (18:11)
[2017-05-26] MEDS ORDERED: CLON2TAB3 PO (18:11)
[2017-05-26] MEDS ORDERED: PREG100C PO (18:11)
[2017-05-26] MEDS ORDERED: IPRASOL4 INH (18:11)
[2017-05-26] MEDS ORDERED: BACL20TA PO (18:11)
[2017-05-26] MEDS ORDERED: NICO21DI35 TD (18:11)
[2017-05-26] MEDS ORDERED: MORP1TAB11 PO (18:11)
[2017-05-26 18:17] LABS: ALT/SGPT 20 U/L (12-78); BLOOD UREA NITROGEN 17 mg/dl (7-18); BUN/CREATININE RATIO 19.5 (10-20); CALCIUM 10.1 mg/dl (8.5-10.1); CARBON DIOXIDE 28 mmol/L (21-32); CHLORIDE 103 mmol/L (98-107); CREATININE 0.85 mg/dl (0.60-1.20); GLUCOSE 145 mg/dl (70-99); MAGNESIUM 2.4 mg/dl (1.8-2.4); POTASSIUM 3.7 mmol/L (3.5-5.1); SODIUM 141 mmol/L (136-145)
--- NOTE | 2017-05-26 18:26 | DIAGNOSTIC IMAGING REPORT ---
HEAD CT NONCONTRAST CT DOSE: 996.53 mGy.cm HISTORY: fall TECHNIQUE: Multiaxial CT images of the head were performed without the use of intravenous contrast. Automated exposure control was utilized for this study. A dose lowering technique was utilized adhering to the principles of ALARA. Comparison: None. Findings: The paranasal sinuses and mastoid air cells are clear. The calvarium and skull base are intact. The ventricles and sulci are within normal limits. There is no mass, hematoma, midline shift, or acute infarct. 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 Mild left periorbital soft tissue swelling. Impression: No acute intracranial abnormality. Mild left periorbital soft tissue swelling. Electronically signed by: Reg Barker M.D. 05/26/2017 6:24 PM Dictated Date/Time: 05/26/2017 6:14 PM
[2017-05-26 18:31] LABS: ALKALINE PHOSPHATASE 119 U/L (45-117); AST/SGOT 39 U/L (15-37); THYROID STIMULATING HORMONE 0.237 uIu/ml (0.300-4.500)
--- NOTE | 2017-05-26 18:31 | DIAGNOSTIC IMAGING REPORT ---
CERVICAL SPINE CT CT DOSE: HISTORY: Neck pain. fall TECHNIQUE: Multiaxial CT images of the cervical spine were performed and reformatted in the sagittal and coronal plane without the use of contrast. A dose lowering technique was utilized adhering to the principles of ALARA. COMPARISON: Cervical spine CT 05/29/2013. FINDINGS: No fractures. No subluxation. Prevertebral soft tissues and the C1-C2 interval are intact. No pneumothorax. Moderate left and mild right facet degenerative changes. A 7 mm hypodense nodule within the right thyroid lobe. IMPRESSION: No fractures within the cervical spine. Electronically signed by: Reg Barker M.D. 05/26/2017 6:29 PM Dictated Date/Time: 05/26/2017 6:25 PM
--- NOTE | 2017-05-26 18:48 | DIAGNOSTIC IMAGING REPORT ---
CHEST ONE VIEW PORTABLE HISTORY: Fall. EVALUATE WEAKNESS COMPARISON: None. FINDINGS: The lungs are clear. Cardiac silhouette is normal in size. No pleural effusions. No pneumothorax. Rotated study. Old, healed left humeral neck fracture. IMPRESSION: Rotated study. No acute process within the chest. Electronically signed by: Reg Barker M.D. 05/26/2017 6:47 PM Dictated Date/Time: 05/26/2017 6:46 PM
[2017-05-26 19:09] LABS: URINE APPEARANCE CLEAR (CLEAR); URINE BILIRUBIN NEG (NEG); URINE COLOR YELLOW; URINE NITRITE NEG (NEG); URINE PH 5.5 (4.5-7.5); URINE SPECIFIC GRAVITY 1.021 (1.000-1.030); UROBILINOGEN NEG (NEG)
[2017-05-26 19:11] LABS: MANUAL MICROSCOPIC REQUIRED? NO; REVIEW REQ? NO
[2017-05-26] MEDS ORDERED: CEFTRIAXONE SOD INJ 1 GM ADDVIAL IV STA (19:19)
[2017-05-26] MEDS ORDERED: SODIUM CHLORIDE 0.9% 500ML 500 ML IV STA (19:50)
--- NOTE | 2017-05-26 20:30 | EMERGENCY ROOM VISIT NOTE ---
History Report prepared by Loni: Barron Frederick Under the Supervision of: Dr. Cyril Irizarry M.D. First contact with patient: 17:01 Chief Complaint: FALL Stated Complaint: FALL/ EYE CONTUSION History of Present Illness The patient is a 62 year old female who presents to the Emergency Room from home with complaints of a mechanical fall that occurred prior to arrival today. Per the nursing staff, the patient is not sure what she hit, but she says that she might have fell and hit her head on the the edge of her bed. She has a resulting left eye contusion. The nursing staff also notes that the patient has an abrasion to the left posterior shoulder, and she rates the pain as a 3 out of 10 in severity. She has been having some visual hallucinations as well, talking about bubbles and bugs. The patient states that she currently feels fine , other than her facial pain and left shoulder pain. She notes that she does feel dry, and she has had a bit of a cough the past few days. The patient says that she fell and twisted her right leg recently, and had a boot put on her foot. She adds that her neck is a bit stiff. History somewhat limited as patient does not remember all details of fall. Pt denies LOC, chest pain, breathing difficulties, nausea, vomiting, abdominal pain, back pain, numbness, weakness, open wounds, active bleeding, or other complaints. Source of History: patient, nursing staff History Limited By: other (somewhat limited as patient does not remember details of event) Onset: Prior to arrival today Position: other (global - fall) Quality: other (mechanical) Associated Symptoms: + cough Note: Associated symptoms: Facial pain, with a left eye contusion. Feels dry. Left shoulder pain. Stiff neck. Visual hallucinations. Review of Systems See HPI for pertinent positives and negatives. A total of ten systems were reviewed and were otherwise negative. Past Medical & Surgical Medical Problems: (1) Anxiety (2) Closed fracture of right tibia and fibula (3) COPD (chronic obstructive pulmonary disease) (4) Depression (5) Dyslipidemia (6) HTN (hypertension) (7) Left patella fracture (8) Multiple sclerosis (9) Persistent insomnia (10) Restless leg syndrome Surgical Problems: (1) History of total right hip arthroplasty Family History FH: brain cancer MOTHER FH: heart attack FATHER Social History Smoking Status: Current Every Day Smoker Alcohol Use: none Marital Status: Housing Status: lives with family Current/Historical Medications Scheduled Baclofen (Lioresal), 20 MG PO BID Ipratropium-Albuterol (Duoneb), 1 TREATMENT INH QID Morphine Sulfate (Morphine Sulfate Er), 1 TAB PO Q12 Multiple Vitamin (Multivitamin), 1 TAB PO DAILY Nicotine (Nicoderm Cq 21MG Patch), 1 PATCH TD DAILY Pregabalin (Lyrica), 150 MG PO HS Scheduled PRN Albuterol Hfa (Ventolin Hfa), 2 PUFFS INH QID PRN for Shortness of Breath Clonazepam (Klonopin), 2 MG PO TID PRN for Anxiety Clonazepam (Klonopin), 1-2 TABS PO HS PRN for RESTLESS LEGS Oxycodone Hcl (Oxycodone Hcl), 1 TAB PO BID PRN for Pain Allergies Coded Allergies: No Known Allergies (Verified , 03/07/17) Physical Exam Vital Signs Date Time Temp Pulse Resp B/P (MAP) Pulse Ox O2 Delivery O2 Flow Rate FiO2 05/26/17 19:31 93 22 173/113 97 Room Air 05/26/17 18:27 86 16 169/110 96 Room Air 05/26/17 17:39 106 05/26/17 17:11 36.9 111 18 144/86 95 Room Air 05/26/17 17:11 95 Room Air Physical Exam GENERAL: Awake, alert, mildly ill appearing, no acute distress HEAD: Contusion and abrasion to left cheek. No ring sign. No raccoon eyes. EYES: Normal conjunctiva. PERRL. EARS: External ears normal. Right TM normal. Left TM normal. NOSE: Atraumatic OROPHARYNX: Dry mucous membranes. Lips, tongue unremarkable. No erythema or exudate. NECK: No tracheal deviation or JVD. No posterior midline tenderness. No step offs noted. RESPIRATORY: CTA bilaterally CARDIAC: Tachycardic rate, normal rhythm. ABDOMEN: Inspection reveals no abnormalities. Soft, non distended. No tenderness to palpation. No hernias. BACK: No midline step offs or tenderness to palpation. Unremarkable. PELVIS: Stable to rock. SKIN: Normal. LYMPH: No adenopathy. MUSCULOSKELETAL: Contusion and abrasion to left posterior deltoid, good range of motion without pain. Some contractures of the left lower extremity and muscle atrophy bilaterally. Walking boot in place in right lower extremity, no hip tenderness. Upper extremities atraumatic other than left deltoid. NEURO: GCS 15. Mildly altered sensorium. Visual hallucinations. No sensory or motor deficits noted. Medical Decision & Procedures ER Provider Diagnostic Interpretation: Radiology results as stated below per my review and radiologist interpretation: HEAD CT NONCONTRAST CT DOSE: 996.53 mGy.cm HISTORY: fall TECHNIQUE: Multiaxial CT images of the head were performed without the use of intravenous contrast. Automated exposure control was utilized for this study. A dose lowering technique was utilized adhering to the principles of ALARA. Comparison: None. Findings: The paranasal sinuses and mastoid air cells are clear. The calvarium and skull base are intact. The ventricles and sulci are within normal limits. There is no mass, hematoma, midline shift, or acute infarct. 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 Mild left periorbital soft tissue swelling. Impression: No acute intracranial abnormality. Mild left periorbital soft tissue swelling. Electronically signed by: Reg Barker M.D. 05/26/2017 6:24 PM Dictated Date/Time: 05/26/2017 6:14 PM CHEST ONE VIEW PORTABLE HISTORY: Fall. EVALUATE WEAKNESS COMPARISON: None. FINDINGS: The lungs are clear. Cardiac silhouette is normal in size. No pleural effusions. No pneumothorax. Rotated study. Old, healed left humeral neck fracture. IMPRESSION: Rotated study. No acute process within the chest. Electronically signed by: Reg Barker M.D. 05/26/2017 6:47 PM Dictated Date/Time: 05/26/2017 6:[address] DOSE: HISTORY: Neck pain. fall TECHNIQUE: Multiaxial CT images of the cervical spine were performed and reformatted in the sagittal and coronal plane without the use of contrast. A dose lowering technique was utilized adhering to the principles of ALARA. COMPARISON: Cervical spine CT 05/29/2013. FINDINGS: No fractures. No subluxation. Prevertebral soft tissues and the C1-C2 interval are intact. No pneumothorax. Moderate left and mild right facet degenerative changes. A 7 mm hypodense nodule within the right thyroid lobe. IMPRESSION: No fractures within the cervical spine. Electronically signed by: Reg Barker M.D. 05/26/2017 6:29 PM Dictated Date/Time: 05/26/2017 6:25 PM Laboratory Results 05/26/17 17:35 Red Blood Count 6.22, Mean Corpuscular Volume 81.2, Mean Corpuscular Hemoglobin 27.3, Mean Corpuscular Hemoglobin Concent 33.7, Mean Platelet Volume 10.0, Neutrophils (%) (Auto) 86.9, Lymphocytes (%) (Auto) 7.4, Monocytes (%) (Auto) 5.3, Eosinophils (%) (Auto) 0.1, Basophils (%) (Auto) 0.1, Neutrophils # (Auto) 13.06, Lymphocytes # (Auto) 1.11, Monocytes # (Auto) 0.80, Eosinophils # (Auto) 0.01, Basophils # (Auto) 0.01 05/26/17 17:35 Test 05/26/17 17:35 05/26/17 17:39 05/26/17 18:45 05/26/17 20:28 White Blood Count 15.02 K/uL (4.8-10.8) Red Blood Count 6.22 M/uL (4.2-5.4) Hemoglobin 17.0 g/dL (12.0-16.0) Hematocrit 50.5 % (37-47) Mean Corpuscular Volume 81.2 fL (80-100) Mean Corpuscular Hemoglobin 27.3 pg (25-34) Mean Corpuscular Hemoglobin Concent 33.7 g/dl (32-36) Platelet Count 264 K/uL (130-400) Mean Platelet Volume 10.0 fL (7.4-10.4) Neutrophils (%) (Auto) 86.9 % Lymphocytes (%) (Auto) 7.4 % Monocytes (%) (Auto) 5.3 % Eosinophils (%) (Auto) 0.1 % Basophils (%) (Auto) 0.1 % Neutrophils # (Auto) 13.06 K/uL (1.4-6.5) Lymphocytes # (Auto) 1.11 K/uL (1.2-3.4) Monocytes # (Auto) 0.80 K/uL (0.11-0.59) Eosinophils # (Auto) 0.01 K/uL (0-0.5) Basophils # (Auto) 0.01 K/uL (0-0.2) RDW Standard Deviation 42.4 fL (36.4-46.3) RDW Coefficient of Variation 14.5 % (11.5-14.5) Immature Granulocyte % (Auto) 0.2 % Immature Granulocyte # (Auto) 0.03 K/uL (0.00-0.02) Prothrombin Time 11.9 SECONDS (9.0-12.0) Prothromb Time International Ratio 1.1 (0.9-1.1) Activated Partial Thromboplast Time 31.7 SECONDS (21.0-31.0) Partial Thromboplastin Ratio 1.2 Anion Gap 10.0 mmol/L (3-11) Est Creatinine Clear Calc Drug Dose 50.6 ml/min Estimated GFR () 86.3 Estimated GFR (Non- 74.5 BUN/Creatinine Ratio 19.5 (10-20) Calcium Level 10.1 mg/dl (8.5-10.1) Magnesium Level 2.4 mg/dl (1.8-2.4) Total Bilirubin 0.4 mg/dl (0.2-1) Direct Bilirubin 0.1 mg/dl (0-0.2) Aspartate Amino Transf (AST/SGOT) 39 U/L (15-37) Alanine Aminotransferase (ALT/SGPT) 20 U/L (12-78) Alkaline Phosphatase 119 U/L (45-117) Total Creatine Kinase 1242 U/L (26-192) Creatine Kinase MB 24.7 ng/ml (0.5-3.6) Creatine Kinase MB Ratio 2.0 (0-3.0) Troponin I < 0.015 ng/ml (0-0.045) Total Protein 8.2 gm/dl (6.4-8.2) Albumin 4.1 gm/dl (3.4-5.0) Lipase 95 U/L (73-393) Thyroid Stimulating Hormone (TSH) 0.237 uIu/ml (0.300-4.500) Free Thyroxine 0.87 ng/dl (0.80-1.60) Free Triiodothyronine 2.01 pg/ml (2.30-4.20) Bedside Lactic Acid Venous 2.46 mmol/L (0.90-1.70) Urine Color YELLOW Urine Appearance CLEAR (CLEAR) Urine pH 5.5 (4.5-7.5) Urine Specific [place] 1.021 (1.000-1.030) Urine Protein 1+ (NEG) Urine Glucose (UA) NEG (NEG) Urine Ketones 1+ (NEG) Urine Occult Blood 2+ (NEG) Urine Nitrite NEG (NEG) Urine Bilirubin NEG (NEG) Urine Urobilinogen NEG (NEG) Urine Leukocyte Esterase NEG (NEG) Urine WBC (Auto) 1-5 /hpf (0-5) Urine RBC (Auto) 10-30 /hpf (0-4) Urine Hyaline Casts (Auto) 1-5 /lpf (0-5) Urine Epithelial Cells (Auto) 5-10 /lpf (0-5) Urine Bacteria (Auto) NEG (NEG) Laboratory results reviewed by me Medications Administered Medications (Trade) Dose Ordered Sig/Elodia Route Start Time Stop Time Status Last Admin Dose Admin Sodium Chloride 1,000 ml @ 125 mls/hr Q8H STAT IV 05/26/17 17:08 05/27/17 01:07 05/26/17 17:55 125 MLS/HR Sodium Chloride 1,000 ml @ 999 mls/hr Q1H1M STAT IV 05/26/17 17:08 05/26/17 18:08 DC 05/26/17 17:55 999 MLS/HR Ceftriaxone Sodium (Rocephin Inj) 1 gm NOW STAT IV 05/26/17 19:19 05/26/17 19:20 DC 05/26/17 19:19 1 GM Sodium Chloride 500 ml @ 999 mls/hr Q31M STAT IV 05/26/17 19:50 05/26/17 20:20 DC 05/26/17 19:50 999 MLS/HR ECG Indication: weakness Rate (beats per minute): 106 Rhythm: sinus tachycardia Findings: no acute ischemic change, no ectopy, other (nonspecific ST) ED Course 1705: The patient was evaluated in room A2. A complete history and physical exam was performed. 1707: Ordered NSS 1000 ml @ 999 mls/hr IV, NSS 1000 ml @ 125 mls/hr IV. 1903: I reevaluated the patient. 1918: Ordered Rocephin Inj 1 gm IV. 1924: I reevaluated the patient and she is still having visual hallucinations, seeing hummingbirds flying around her room. I met with the patient's , and told him what is going on. The patient and her verbally expressed understanding and agreement of the treatment plan. The patient will be evaluated for further treatment. 1950: Ordered NSS 500 ml @ 999 mls/hr IV. 2007: I discussed the patient with Dr. Patricia Felix optical laboratory manager - he will evaluate the patient for further treatment. Medical Decision Triage Nursing notes reviewed. The patient's presentation and history were concerning for a fall and hallucinations. Etiologies such as contusion, fracture, ICH, metabolic, infection, hypo/ hyperglycemia, electrolyte abnormalities, cardiac sources, intracerebral event, toxicologic, neurologic, as well as others were entertained. The patient was evaluated. She appeared dehydrated. She did have some visual hallucinations. She had a moderate contusion to the left cheek. She had a contusion to the left shoulder but there was good range of motion without significant pain. Imaging, blood work, and ECG were performed. The patient had a urinalysis obtained. She was hydrated. CT scan of the head and neck did not reveal any acute findings. Chest x-ray was negative. She has a CBC which reveals a leukocytosis. Her chemistry panel is unremarkable. Urinalysis did show some hematuria. The patient's lactate is elevated. Total CK is also elevated. The patient was given additional hydration. She was given a dose of IV Rocephin. She is not febrile. She has stable vital signs. She will need further evaluation and management in the hospital. I did discuss this with the patient and her . A consultation was made with the [facility] service. The patient was evaluated for further treatment. Medication Reconcilliation Current Medication List: was personally reviewed by me Blood Pressure Screening Patient's blood pressure: Elevated blood pressure Blood pressure disposition: Elevated BP felt to be situational Consults Time Called: 1999 Consulting Physician: Dr. Patricia Felix optical laboratory manager Returned Call: 2007 I discussed the patient with Dr. Patricia Felix optical laboratory manager - he will evaluate the patient for further treatment. Impression Primary Impression: Closed head injury Additional Impressions: Hematuria Rhabdomyolysis Dehydration Visual hallucinations Scribe Attestation The scribe's documentation has been prepared under my direction and personally reviewed by me in its entirety. I confirm that the note above accurately reflects all work, treatment, procedures, and medical decision making performed by me. Departure Information Dispostion Being Evaluated By Hospitalist Referrals Chuck Smith D.O. (PCP) Patient Instructions My [facility] Problem Qualifiers
[2017-05-26] MEDS ORDERED: KETOROLAC TROMETHAMINE 30 MG/ML VIAL IV PRN (21:15)
[2017-05-26] MEDS ORDERED: OXYCODONE HCL IR 5 MG TAB (IMMEDIATE RELEASE) PO PRN (21:15)
[2017-05-26] MEDS ORDERED: IBUPROFEN 200 MG TAB PO PRN (21:15)
[2017-05-26] MEDS ORDERED: ONDANSETRON INJ 2 MG/ML 2 ML VIAL IV PRN (21:15)
[2017-05-26] MEDS ORDERED: ACETAMINOPHEN 325 MG TAB PO PRN (21:15)
[2017-05-26] MEDS ORDERED: AMLODIPINE BESYLATE 5 MG TAB PO STA (21:24)
[2017-05-26] MEDS ORDERED: LEVALBUTEROL/IPRATROPIUM NEB INH PRN (21:45)
[2017-05-26] MEDS ORDERED: CLONAZEPAM 1 MG TAB PO PRN (21:45)
[2017-05-26] MEDS ORDERED: LEVALBUTEROL 1.25MG/0.5ML NEB INH PRN (22:45)
[2017-05-26] MEDS ORDERED: IPRATROPIUM BROMIDE NEB SOLN 0.02% 2.5 ML VIAL INH PRN (22:45)
[2017-05-26 22:54] LABS: BENZODIAZEPINE, URINE POS (NEG); COCAINE,URINE NEG (NEG); PHENCYCLIDINE, URINE NEG (NEG)
--- NOTE | 2017-05-26 23:10 | HISTORY & PHYSICAL EXAMINATION ---
DATE OF ADMISSION: 05/26/2017 PRIMARY CARE DOCTOR: Sarah CHIEF COMPLAINT: Fall as per records. HISTORY OF PRESENT ILLNESS: History was obtained from the patient's and records. Unable to obtain history from patient secondary to obtunded state at time of encounter. Medical history is significant for HTN not on meds, COPD, ongoing tobacco abuse , mood disorder, anxiety, MS, chronic pain/fibromyalgia as per records on narcotics. Recent confinement in the hospital under Orthopedic service in February 2017 for right tibia surgery. As per , the patient chronic pain from MS has been worsening of late. Last visit at the local [facility] clinic for pain management concerns was a few days ago. Gabapentin was to be switched Lyrica. Patient was requested to adjust MS Contin dose at 7:00 a.m. and 9:00 p.m. PX dcd on regimen of MS Contin and oxycodone at the same time b.i.d. each, Lyrica 150 mg hs, Baclofen twice a day. Three days ago, urine was noted to be dark and foul-smelling as per . No fever, no chills. Patient noted to be sleeping a lot of late as per Patient was found on the floor by her today. She had a bruise on her left cheek. Patient was awake but sleepy and had a blanket around her. Denies chest pain, shortness of breath or syncope/loss of consciousness. Patient told her she thought she hit her head on the foot of the bed. Patient's sat her up on the wheelchair and went outside her room to get something. Upon his return, he found patient had fallen on the floor again. Patient was brought to the Emergency Room. Given IV Ceftriaxone for possible UTI. MEDICAL HISTORY: As above. SURGERIES: Orthopedic procedures. HOME MEDICATIONS: Include; multivitamins, Nicoderm, oxycodone, Lyrica, albuterol, Baclofen, Klonopin, DuoNeb and morphine sulfate ER. ALLERGIES: No known drug allergies. FAMILY HISTORY: Hypertension. PERSONAL AND SOCIAL HISTORY: Half pack daily. No chronic intake of alcoholic beverages. On disability. Lives with her . REVIEW OF SYSTEMS: Cannot be obtained. PHYSICAL EXAMINATION: VITAL SIGNS: Blood pressure was noted to be 170/110 pulse rate 111 later 90, RR 26 T 37 sats 95 on room air. GENERAL: Noted to be obtunded, in no respiratory distress. SKIN: Normal color. HEENT: Contusion on the left cheek. NECK: Short CHEST: Decreased effort. HEART: RRR ABDOMEN: Soft. EXTREMITIES: No edema, no tenderness, immobilization device on the right lower extremity. NEUROLOGIC: Obtunded, mid-dilated pupils. LABORATORIES: Hemoglobin was noted to be 17, hematocrit 50, white cell count 15 and platelets 264. Sodium 140, potassium 3.7, chloride 103, CO2 28 BUN 17, creatinine 0.8 and glucose 145. CK was 1242. UA; ketones, occult blood, WBC 1-5, hyaline casts. CT of the head; showed no acute pathology, left periorbital soft tissue swelling. Chest x-ray; no acute process. Cervical spine CT; no fracture of cervical spine. ASSESSMENT: 1. Rhabdomyolysis, secondary to fall. Patient predisposed by polypharmacy and ambulatory dysfunction from worsening MS as per 2, Obtunded state likely secondary to medications. ? possible urinary tract infection (although UA bland), possible sepsis. 3. Hypertension, elevated 2 to recent trauma not on maintenance medications PCP previously wanted to start patient on Norvasc as per outpatient records 4. Chronic obstructive pulmonary disease, ongoing tobacco abuse no acute pulmonary issues for now. 5. Fibromyalgia on chronic pain medications. PLAN: GMF IVF, Follow CPK. Follow urine cultures, IV Ceftriaxone for now. Hold home narcotics, neuropsychotropics, Lyrica, Baclofen for sedation/confusion (dose for new Lyrica medication may need to be adjusted) PT/OT eval. Neurology consult (Dr. Alatorre) as per px 's request for followup eval for MS. Initiate Norvasc. Continue home nicotine patch. DVT prophylaxis, Lovenox heparin subQ. Full code. Patient's , Mr. Dre Lamas requesting updates from providers at [phone]. MTDD
[2017-05-26] MEDS: LACTATED RINGER'S 1000ML 1,000 ML IV SCH (23:23)
[2017-05-26 23:48] VITALS: BP 133/83; PULSE 95; TEMP 36.9; O2SAT 96; Ht 157.5 cm; Wt 53.3 kg
[2017-05-27] VITALS (8 sets, daily range): BP systolic 122–147; BP diastolic 80–84; PULSE 75–94; TEMP 36–36.9; O2SAT 91–100
[2017-05-27] MEDS: LEVALBUTEROL 1.25MG/0.5ML NEB INH SCH ×4 (02:08→19:42)
[2017-05-27] MEDS: IPRATROPIUM BROMIDE NEB SOLN 0.02% 2.5 ML VIAL INH SCH ×4 (02:08→19:41)
[2017-05-27] MEDS ORDERED: LEVALBUTEROL/IPRATROPIUM NEB INH SCH (03:00)
[2017-05-27] MEDS: LACTATED RINGER'S 1000ML 1,000 ML IV SCH ×3 (05:55→18:34)
[2017-05-27 07:49] LABS: BUN/CREATININE RATIO 23.9 (10-20); CALCIUM 8.7 mg/dl (8.5-10.1); CREATININE 0.56 mg/dl (0.60-1.20); POTASSIUM 3.2 mmol/L (3.5-5.1)
[2017-05-27] MEDS: MULTIVITAMIN TAB PO SCH (07:55)
[2017-05-27] MEDS: ENOXAPARIN 40 MG/0.4 ML SYR SQ SCH ×2 (07:56→08:02)
[2017-05-27] MEDS: NICOTINE 21 MG/24 HR TDSY TD SCH ×2 (07:56→08:00)
[2017-05-27] MEDS: AMLODIPINE BESYLATE 5 MG TAB PO SCH (07:56)
[2017-05-27 08:12] LABS: BASO % 0.2 %; BASO ABS # 0.02 K/uL (0-0.2); COMPLETE YES; EOS % 0.2 %; HEMATOCRIT 43.1 % (37-47); IG% 0.2 %; LYMPH % 20.5 %; LYMPH ABS # 1.77 K/uL (1.2-3.4); MEAN CELL VOLUME 81.6 fL (80-100); MEAN CORPUSCULAR HEMOGLOBIN 27.1 pg (25-34); MEAN CORPUSCULAR HGB CONC 33.2 g/dl (32-36); MEAN PLATELET VOLUME 9.8 fL (7.4-10.4); MONO % 6.5 %; NEUT % 72.4 %; PLATELET COUNT 201 K/uL (130-400); RED BLOOD COUNT 5.28 M/uL (4.2-5.4); WHITE BLOOD COUNT 8.62 K/uL (4.8-10.8)
[2017-05-27] MEDS: MoRPHine SULFATE CR 15 MG TAB (MS CONTIN) PO SCH ×2 (08:17→20:37)
[2017-05-27] MEDS ORDERED: POTASSIUM CHLORIDE 10 MEQ TABCR PO ONE (13:30)
--- NOTE | 2017-05-27 14:08 | Neurology Consultation ---
Neurology Consultation Date of Consultation: May 27, 2017. Attending Physician: Lizeth Schilling M.D. Primary Care Physician: Chuck Smith D.OJosie Reason for Consultation: MS f/u eval History of Present Illness Source: patient Brynn is a 62 year old female who has a PMH HTN, COPD, ongoing tobacco abuse, mood disorder, anxiety, MS, chronic pain. Dr Alatorre neurology sees her for MS and she is currently on no modulating medications. She has progressive MS. She states she was at the pain clinic and her gabapentin was switched to Lyrica. She is currently on MS Contin 15 mg XR twice daily and oxycodone 5mg twice daily. Baclofen 20 mg BID but was held during admission. She also recently had a right tibia surgery by orthopedics in February 2017. Her is not in the room but according to documentation she was found on the floor by her . She had a bruise on her left cheek, lethargy and a blanket around her. He put her in her wheelchair and when he returned she was on the floor again. denies CP , SOB, abdominal pain, vision changes bowel or bladder issues, N, V. Past Medical/Surgical History Medical Problems: (1) Altered mental status Status: Acute (2) Altered mental status Status: Acute (3) Closed head injury Status: Acute (4) Dehydration Status: Acute (5) Exacerbation of multiple sclerosis Status: Acute (6) Fall Status: Acute (7) Hematuria Status: Acute (8) Pneumonia Status: Acute (9) Respiratory failure Status: Acute (10) Respiratory failure, acute Status: Acute (11) Rhabdomyolysis Status: Acute (12) Sacral contusion Status: Acute (13) Visual hallucinations Status: Acute Family History Father: heart disease Social History Smoking Status: Current every day smoker Marital Status: Housing Status: lives with family Allergies Coded Allergies: No Known Allergies (Verified , 03/07/17) Current Inpatient Medications Current Inpatient Medications Medications (Trade) Dose Ordered Sig/Elodia Route Start Time Stop Time Status Last Admin Dose Admin Lactated Ringer's 1,000 ml @ 150 mls/hr Q6H40M IV 05/26/17 23:00 05/27/17 22:59 05/27/17 12:02 150 MLS/HR Enoxaparin Sodium (Lovenox Inj) 40 mg Q24H SQ 05/27/17 09:00 06/26/17 08:59 Acetaminophen (Tylenol Tab) 650 mg Q4H PRN PO 05/26/17 21:15 06/25/17 21:14 Multivitamins (Multivitamin Tab) 1 tab DAILY PO 05/27/17 08:00 06/26/17 08:59 05/27/17 07:55 1 TAB Nicotine (Nicoderm Cq 21MG Patch) 1 patch DAILY TD 05/27/17 08:00 06/26/17 08:59 Oxycodone HCl (Roxicodone Immediate Rel Tab) 10 mg BID PRN PO 05/26/17 21:15 06/09/17 21:14 Ketorolac Tromethamine (Toradol Inj) 30 mg Q6H PRN IV 05/26/17 21:15 05/31/17 21:14 Ibuprofen (Advil Tab) 400 mg Q6H PRN PO 05/26/17 21:15 06/25/17 21:14 Ondansetron HCl (Zofran Inj) 4 mg Q6H PRN IV 05/26/17 21:15 06/25/17 21:14 Morphine Sulfate (Oramorph Sr Tab) 15 mg Q12 PO 05/27/17 09:00 06/10/17 08:59 05/27/17 08:17 15 MG Amlodipine Besylate (Norvasc Tab) 2.5 mg DAILY PO 05/27/17 08:00 06/26/17 08:59 05/27/17 07:56 2.5 MG Clonazepam (Klonopin Tab) 2 mg TID PRN PO 05/26/17 21:45 06/25/17 21:44 Ipratropium Henley (Atrovent 0.02% 0.5MG/2.5ML Neb) 0.5 mg Q6R INH 05/27/17 03:00 06/26/17 02:59 05/27/17 06:54 0.5 MG Levalbuterol (Xopenex 1.25MG/ 0.5ML Neb) 1.25 mg Q6R INH 05/27/17 03:00 06/26/17 02:59 05/27/17 06:54 1.25 MG Ipratropium Henley (Atrovent 0.02% 0.5MG/2.5ML Neb) 0.5 mg Q4H PRN INH 05/26/17 22:45 06/25/17 22:44 Levalbuterol (Xopenex 1.25MG/ 0.5ML Neb) 1.25 mg Q4H PRN INH 05/26/17 22:45 06/25/17 22:44 Physical Exam Vital Signs (Past 24 Hrs): Date Time Temp Pulse Resp B/P (MAP) Pulse Ox O2 Delivery O2 Flow Rate FiO2 05/27/17 08:00 Room Air 05/27/17 07:14 36.0 80 18 138/84 (102) 97 Room Air 05/27/17 06:54 94 18 96 Room Air 05/27/17 02:09 94 18 96 Room Air 05/26/17 23:48 36.9 95 20 133/83 96 Room Air 05/26/17 21:05 97 20 149/107 94 Room Air 05/26/17 19:31 93 22 173/113 97 Room Air 05/26/17 18:27 86 16 169/110 96 Room Air 05/26/17 17:39 106 05/26/17 17:11 36.9 111 18 144/86 95 Room Air 05/26/17 17:11 95 Room Air Physical Exam: Constitutional: appearance nourished Ears, Nose, Mouth and Throat: mucous membranes moist, no injection and skin normal, eyes normal Cardiovascular: normal S-1 and S-2 and regular rate and rhythm Respiratory: course breath sounds Musculoskeletal: no peripheral edema Skin: bruising around left eye, LE well healing incision Eyes: extraocular muscles intact (EOMI) and pupils equal, round and reactive to light (PERRL), pupils dilated NEUROLOGIC EXAMINATION: Mental status: Alert and interactive Oriented states it is 1917 then corrects to 2016, new her date, where she lives, at [facility], mildly confused Oriented to person Speech fluent with no evidence of aphasia Cranial Nerves smile eye brow raise symmetric tongue midline Reflexes: brisk reflexes Sensory: to light touch. Gait/Stance: Posture lying in bed Motor: Negative for pronator drift of out stretched arms with eyes closed. Strength: right hand jewel grinder biceps triceps 3/5, LE unable to lift hip against gravity, no plantar flex or ext, left hand jewel grinder biceps triceps, hip flex plantar flex ext 5/ 5 Laboratory Results Past 24 Hours: 05/27/17 07:06 Red Blood Count 5.28, Mean Corpuscular Volume 81.6, Mean Corpuscular Hemoglobin 27.1, Mean Corpuscular Hemoglobin Concent 33.2, Mean Platelet Volume 9.8, Neutrophils (%) (Auto) 72.4, Lymphocytes (%) (Auto) 20.5, Monocytes (%) (Auto) 6.5, Eosinophils (%) (Auto) 0.2, Basophils (%) (Auto) 0.2, Neutrophils # (Auto) 6.23, Lymphocytes # (Auto) 1.77, Monocytes # (Auto) 0.56, Eosinophils # (Auto) 0.02, Basophils # (Auto) 0.02 05/27/17 07:06 Test 05/26/17 17:35 05/26/17 17:39 05/26/17 18:45 05/26/17 18:58 Prothrombin Time 11.9 SECONDS (9.0-12.0) Prothromb Time International Ratio 1.1 (0.9-1.1) Activated Partial Thromboplast Time 31.7 SECONDS (21.0-31.0) Partial Thromboplastin Ratio 1.2 Magnesium Level 2.4 mg/dl (1.8-2.4) Total Bilirubin 0.4 mg/dl (0.2-1) Direct Bilirubin 0.1 mg/dl (0-0.2) Aspartate Amino Transf (AST/SGOT) 39 U/L (15-37) Alanine Aminotransferase (ALT/SGPT) 20 U/L (12-78) Alkaline Phosphatase 119 U/L (45-117) Creatine Kinase MB 24.7 ng/ml (0.5-3.6) Creatine Kinase MB Ratio 2.0 (0-3.0) Troponin I < 0.015 ng/ml (0-0.045) Total Protein 8.2 gm/dl (6.4-8.2) Albumin 4.1 gm/dl (3.4-5.0) Lipase 95 U/L (73-393) Thyroid Stimulating Hormone (TSH) 0.237 uIu/ml (0.300-4.500) Free Thyroxine 0.87 ng/dl (0.80-1.60) Free Triiodothyronine 2.01 pg/ml (2.30-4.20) Bedside Lactic Acid Venous 2.46 mmol/L (0.90-1.70) Urine Color YELLOW Urine Appearance CLEAR (CLEAR) Urine pH 5.5 (4.5-7.5) Urine Specific [place] 1.021 (1.000-1.030) Urine Protein 1+ (NEG) Urine Glucose (UA) NEG (NEG) Urine Ketones 1+ (NEG) Urine Occult Blood 2+ (NEG) Urine Nitrite NEG (NEG) Urine Bilirubin NEG (NEG) Urine Urobilinogen NEG (NEG) Urine Leukocyte Esterase NEG (NEG) Urine WBC (Auto) 1-5 /hpf (0-5) Urine RBC (Auto) 10-30 /hpf (0-4) Urine Hyaline Casts (Auto) 1-5 /lpf (0-5) Urine Epithelial Cells (Auto) 5-10 /lpf (0-5) Urine Bacteria (Auto) NEG (NEG) Urine Opiates Screen POS (NEG) Urine Methadone, Qualitative NEG (NEG) Urine Barbiturates NEG (NEG) Urine Phencyclidine (PCP) Level NEG (NEG) Ur Amphetamine/Methamphetamine NEG (NEG) MDMA (Ecstasy) Screen NEG (NEG) Urine Benzodiazepines Screen POS (NEG) Urine Cocaine Metabolite NEG (NEG) Urine Marijuana (THC) NEG (NEG) Test 05/26/17 20:54 05/27/17 07:06 Lactic Acid Level 1.5 mmol/L (0.4-2.0) Ethyl Alcohol mg/dL < 3.0 mg/dl (0-3) White Blood Count 8.62 K/uL (4.8-10.8) Red Blood Count 5.28 M/uL (4.2-5.4) Hemoglobin 14.3 g/dL (12.0-16.0) Hematocrit 43.1 % (37-47) Mean Corpuscular Volume 81.6 fL (80-100) Mean Corpuscular Hemoglobin 27.1 pg (25-34) Mean Corpuscular Hemoglobin Concent 33.2 g/dl (32-36) Platelet Count 201 K/uL (130-400) Mean Platelet Volume 9.8 fL (7.4-10.4) Neutrophils (%) (Auto) 72.4 % Lymphocytes (%) (Auto) 20.5 % Monocytes (%) (Auto) 6.5 % Eosinophils (%) (Auto) 0.2 % Basophils (%) (Auto) 0.2 % Neutrophils # (Auto) 6.23 K/uL (1.4-6.5) Lymphocytes # (Auto) 1.77 K/uL (1.2-3.4) Monocytes # (Auto) 0.56 K/uL (0.11-0.59) Eosinophils # (Auto) 0.02 K/uL (0-0.5) Basophils # (Auto) 0.02 K/uL (0-0.2) RDW Standard Deviation 43.7 fL (36.4-46.3) RDW Coefficient of Variation 14.7 % (11.5-14.5) Immature Granulocyte % (Auto) 0.2 % Immature Granulocyte # (Auto) 0.02 K/uL (0.00-0.02) Anion Gap 7.0 mmol/L (3-11) Est Creatinine Clear Calc Drug Dose 84.5 ml/min Estimated GFR () 117.5 Estimated GFR (Non- 101.3 BUN/Creatinine Ratio 23.9 (10-20) Calcium Level 8.7 mg/dl (8.5-10.1) Total Creatine Kinase 705 U/L (26-192) Imaging CT c spine- No fractures within the cervical spine. CT head- No acute intracranial abnormality. Mild left periorbital soft tissue swelling. Impression 62 year old female history of MS primary progressive Plan 1. narcotics would continue with caution to avoid sedation- management by pain clinic 2. gabapentin was switched to Lyrica currently on hold 3. baclofen 20 mg BID would not stop abruptly restart at lower dosing 4. PT/OT for recommendations- patient may benefit from rehab stay 5. check Vitamin D if not already done 6. 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 in type and is not amenable to any disease modifying therapy and complicated by pain which is diffuse but largely related to her multiple traumas and post surgical issues involving the right shoulder, the right hip and now the right distal leg We have mtm on board to try managing her narcotics and other meds as she in the past had slipped into heavy narcotic use and thus far things are a bit better but still far from perfect She is in now post fall with rhabdomyolysis and we need to get the ck back into an acceptable range and consider discharge as soon as this has been achieved She is unfortunately a bit impulsive and has limited comprehension of the consequences of her actions at times and her fall risk is thud extremely high For now neurology has nothing more to offer unfortunately in terms of actively managing her ms other than symptomatic measures and hopefully MT will get these in control in the future Her comprehension of how to take her current meds is also limited and she should alexander on a mix of jail narcotics and prn short acting agents with the lyrica and baclofen but is not apparently doing this Cyril Alatorre MD
--- NOTE | 2017-05-27 14:35 | Progress Note ---
Medicine Progress Note Date & Time of Visit: May 27, 2017 at 14:01. Subjective Pt was seen and examined Sitting at the edge of the bed with at bedside Pt said that she wants to go home She said that she feels better now said since pt has been having so much pain She has been taking the morphine and oxycodone at the same time said that she still feels a little busy Pt said that her leg feels very weak because she has not been walking on them for month Denies any chest pain, palpitation, dizziness and SOB Objective Last 8 Hrs Date Time Temp Pulse Resp B/P (MAP) Pulse Ox O2 Delivery O2 Flow Rate FiO2 05/27/17 08:00 Room Air 05/27/17 07:14 36.0 80 18 138/84 (102) 97 Room Air 05/27/17 06:54 94 18 96 Room Air Physical Exam: General- no acute distress Head- atraumatic Eyes- PERRL, EOMI, Left eyes bruises ENT- oropharynx clear Neck- supple, no JVD Lungs- Poor air entry Heart- regular rhythm; no murmur Abdomen- normal bowel sounds, soft, nontender Extremities- no calf tenderness Neuro- alert, oriented x 3; PERRL, EOMI Skin- warm & dry Laboratory Results: Last 24 Hours Test 05/26/17 17:35 05/26/17 17:39 05/26/17 18:45 05/26/17 18:58 White Blood Count 15.02 K/uL Red Blood Count 6.22 M/uL Hemoglobin 17.0 g/dL Hematocrit 50.5 % Mean Corpuscular Volume 81.2 fL Mean Corpuscular Hemoglobin 27.3 pg Mean Corpuscular Hemoglobin Concent 33.7 g/dl Platelet Count 264 K/uL Mean Platelet Volume 10.0 fL Neutrophils (%) (Auto) 86.9 % Lymphocytes (%) (Auto) 7.4 % Monocytes (%) (Auto) 5.3 % Eosinophils (%) (Auto) 0.1 % Basophils (%) (Auto) 0.1 % Neutrophils # (Auto) 13.06 K/uL Lymphocytes # (Auto) 1.11 K/uL Monocytes # (Auto) 0.80 K/uL Eosinophils # (Auto) 0.01 K/uL Basophils # (Auto) 0.01 K/uL RDW Standard Deviation 42.4 fL RDW Coefficient of Variation 14.5 % Immature Granulocyte % (Auto) 0.2 % Immature Granulocyte # (Auto) 0.03 K/uL Prothrombin Time 11.9 SECONDS Prothromb Time International Ratio 1.1 Activated Partial Thromboplast Time 31.7 SECONDS Partial Thromboplastin Ratio 1.2 Sodium Level 141 mmol/L Potassium Level 3.7 mmol/L Chloride Level 103 mmol/L Carbon Dioxide Level 28 mmol/L Anion Gap 10.0 mmol/L Blood Urea Nitrogen 17 mg/dl Creatinine 0.85 mg/dl Est Creatinine Clear Calc Drug Dose 50.6 ml/min Estimated GFR () 86.3 Estimated GFR (Non- 74.5 BUN/Creatinine Ratio 19.5 Random Glucose 145 mg/dl Calcium Level 10.1 mg/dl Magnesium Level 2.4 mg/dl Total Bilirubin 0.4 mg/dl Direct Bilirubin 0.1 mg/dl Aspartate Amino Transf (AST/SGOT) 39 U/L Alanine Aminotransferase (ALT/SGPT) 20 U/L Alkaline Phosphatase 119 U/L Total Creatine Kinase 1242 U/L Creatine Kinase MB 24.7 ng/ml Creatine Kinase MB Ratio 2.0 Troponin I < 0.015 ng/ml Total Protein 8.2 gm/dl Albumin 4.1 gm/dl Lipase 95 U/L Thyroid Stimulating Hormone (TSH) 0.237 uIu/ml Free Thyroxine 0.87 ng/dl Free Triiodothyronine 2.01 pg/ml Bedside Lactic Acid Venous 2.46 mmol/L Urine Color YELLOW Urine Appearance CLEAR Urine pH 5.5 Urine Specific Hanson 1.021 Urine Protein 1+ Urine Glucose (UA) NEG Urine Ketones 1+ Urine Occult Blood 2+ Urine Nitrite NEG Urine Bilirubin NEG Urine Urobilinogen NEG Urine Leukocyte Esterase NEG Urine WBC (Auto) 1-5 /hpf Urine RBC (Auto) 10-30 /hpf Urine Hyaline Casts (Auto) 1-5 /lpf Urine Epithelial Cells (Auto) 5-10 /lpf Urine Bacteria (Auto) NEG Urine Opiates Screen POS Urine Methadone, Qualitative NEG Urine Barbiturates NEG Urine Phencyclidine (PCP) Level NEG Ur Amphetamine/Methamphetamine NEG MDMA (Ecstasy) Screen NEG Urine Benzodiazepines Screen POS Urine Cocaine Metabolite NEG Urine Marijuana (THC) NEG Test 05/26/17 20:54 05/27/17 07:06 Lactic Acid Level 1.5 mmol/L Ethyl Alcohol mg/dL < 3.0 mg/dl White Blood Count 8.62 K/uL Red Blood Count 5.28 M/uL Hemoglobin 14.3 g/dL Hematocrit 43.1 % Mean Corpuscular Volume 81.6 fL Mean Corpuscular Hemoglobin 27.1 pg Mean Corpuscular Hemoglobin Concent 33.2 g/dl Platelet Count 201 K/uL Mean Platelet Volume 9.8 fL Neutrophils (%) (Auto) 72.4 % Lymphocytes (%) (Auto) 20.5 % Monocytes (%) (Auto) 6.5 % Eosinophils (%) (Auto) 0.2 % Basophils (%) (Auto) 0.2 % Neutrophils # (Auto) 6.23 K/uL Lymphocytes # (Auto) 1.77 K/uL Monocytes # (Auto) 0.56 K/uL Eosinophils # (Auto) 0.02 K/uL Basophils # (Auto) 0.02 K/uL RDW Standard Deviation 43.7 fL RDW Coefficient of Variation 14.7 % Immature Granulocyte % (Auto) 0.2 % Immature Granulocyte # (Auto) 0.02 K/uL Sodium Level 141 mmol/L Potassium Level 3.2 mmol/L Chloride Level 108 mmol/L Carbon Dioxide Level 26 mmol/L Anion Gap 7.0 mmol/L Blood Urea Nitrogen 13 mg/dl Creatinine 0.56 mg/dl Est Creatinine Clear Calc Drug Dose 84.5 ml/min Estimated GFR () 117.5 Estimated GFR (Non- 101.3 BUN/Creatinine Ratio 23.9 Random Glucose 106 mg/dl Calcium Level 8.7 mg/dl Total Creatine Kinase 705 U/L Date/Time Source Procedure Growth Status 05/26/17 17:45 Blood Blood Culture Pending Received 05/26/17 17:35 Blood Blood Culture Pending Received 05/26/17 18:45 Urine,Catheterized Urine Culture - Preliminary NO GROWTH - LESS THAN 1,000 COLONIES/... Resulted Assessment & Plan Lethargy/Drowsiness Mostly related to medications CT head on admission showed no acute intracranial abnormality. She has been taking morphine sulfate/ oxycodone at the same time Recently started on Lyrica, on baclofen 20 mg BID, Klonopin Will decrease the baclofen to 10mg BID Lyrica has been on hold neuro consulted Advised pt not to take the morphine and oxycodone together Continue monitor Rhabdomyolysis Due to fall possible related to polypharmacy and ambulatory dysfunction from worsening MS CK on admission was 1242 that trending down to 742 Continue IVF Ambulatory dysfunction/ Fall Recent fracture in right leg, has not been walking for month Continue PT/OT PT recommended inpatient rehab fall precaution Hypertension BP stable not on any med COPD Continue duoneb treatment Stable Fibromyalgia/chronic pain syndrome On morphine/ oxycodone/baclofen Continue follow up with pain management Tobacco abuse On nicotine patch counseling on smoking cessation DVT px on lovenox subq CODE STATUS FULL CODE Disposition Will talk to case operator for rehab placement Consultants: Neuro Current Inpatient Medications: Current Inpatient Medications Medications (Trade) Dose Ordered Sig/Elodia Route Start Time Stop Time Status Last Admin Dose Admin Lactated Ringer's 1,000 ml @ 150 mls/hr Q6H40M IV 05/26/17 23:00 05/27/17 22:59 05/27/17 12:02 150 MLS/HR Enoxaparin Sodium (Lovenox Inj) 40 mg Q24H SQ 05/27/17 09:00 06/26/17 08:59 Acetaminophen (Tylenol Tab) 650 mg Q4H PRN PO 05/26/17 21:15 06/25/17 21:14 Multivitamins (Multivitamin Tab) 1 tab DAILY PO 05/27/17 08:00 06/26/17 08:59 05/27/17 07:55 1 TAB Nicotine (Nicoderm Cq 21MG Patch) 1 patch DAILY TD 05/27/17 08:00 06/26/17 08:59 Oxycodone HCl (Roxicodone Immediate Rel Tab) 10 mg BID PRN PO 05/26/17 21:15 06/09/17 21:14 Ketorolac Tromethamine (Toradol Inj) 30 mg Q6H PRN IV 05/26/17 21:15 05/31/17 21:14 Ibuprofen (Advil Tab) 400 mg Q6H PRN PO 05/26/17 21:15 06/25/17 21:14 Ondansetron HCl (Zofran Inj) 4 mg Q6H PRN IV 05/26/17 21:15 06/25/17 21:14 Morphine Sulfate (Oramorph Sr Tab) 15 mg Q12 PO 05/27/17 09:00 06/10/17 08:59 8/7/17 08:17 15 MG Amlodipine Besylate (Norvasc Tab) 2.5 mg DAILY PO 05/27/17 08:00 06/26/17 08:59 05/27/17 07:56 2.5 MG Clonazepam (Klonopin Tab) 2 mg TID PRN PO 05/26/17 21:45 06/25/17 21:44 Ipratropium Draper (Atrovent 0.02% 0.5MG/2.5ML Neb) 0.5 mg Q6R INH 05/27/17 03:00 06/26/17 02:59 05/27/17 06:54 0.5 MG Levalbuterol (Xopenex 1.25MG/ 0.5ML Neb) 1.25 mg Q6R INH 05/27/17 03:00 06/26/17 02:59 05/27/17 06:54 1.25 MG Ipratropium Draper (Atrovent 0.02% 0.5MG/2.5ML Neb) 0.5 mg Q4H PRN INH 05/26/17 22:45 06/25/17 22:44 Levalbuterol (Xopenex 1.25MG/ 0.5ML Neb) 1.25 mg Q4H PRN INH 05/26/17 22:45 06/25/17 22:44
[2017-05-27] MEDS ORDERED: COUGH DROP (SUGAR FREE) LOZ 24 LOZ/1 BOX ONE (16:13)
[2017-05-27] MEDS ORDERED: NURSING DECISION MEDICATION ORDER SCH (16:15)
[2017-05-27] MEDS ORDERED: COUGH DROP (SUGAR FREE) LOZ 24 LOZ/1 BOX PO PRN (16:45)
[2017-05-27] MEDS: BACLOFEN 10 MG TAB PO SCH (19:31)
[2017-05-27] MEDS ORDERED: CEFTRIAXONE SOD INJ 1 GM in DEXTROSE 5% ADD-VANTAGE 50ML 50 ML IV SCH (20:00)
[2017-05-28] MEDS: LEVALBUTEROL 1.25MG/0.5ML NEB INH SCH ×3 (00:14→14:19)
[2017-05-28] MEDS: IPRATROPIUM BROMIDE NEB SOLN 0.02% 2.5 ML VIAL INH SCH ×3 (00:14→14:19)
[2017-05-28 01:30] LABS: BASO % 0.2 %; BASO ABS # 0.01 K/uL (0-0.2); COMPLETE YES; EOS % 0.9 %; HEMATOCRIT 37.4 % (37-47); IG% 0.2 %; LYMPH % 39.2 %; LYMPH ABS # 2.48 K/uL (1.2-3.4); MEAN CELL VOLUME 81.8 fL (80-100); MEAN CORPUSCULAR HEMOGLOBIN 26.3 pg (25-34); MEAN CORPUSCULAR HGB CONC 32.1 g/dl (32-36); MEAN PLATELET VOLUME 9.6 fL (7.4-10.4); MONO % 7.4 %; NEUT % 52.1 %; PLATELET COUNT 174 K/uL (130-400); RED BLOOD COUNT 4.57 M/uL (4.2-5.4); WHITE BLOOD COUNT 6.33 K/uL (4.8-10.8)
[2017-05-28 01:54] LABS: BUN/CREATININE RATIO 18.2 (10-20); CALCIUM 8.3 mg/dl (8.5-10.1); CREATININE 0.61 mg/dl (0.60-1.20); MAGNESIUM 2.1 mg/dl (1.8-2.4); POTASSIUM 3.4 mmol/L (3.5-5.1)
[2017-05-28] MEDS ORDERED: POTASSIUM CHLORIDE 10 MEQ TABCR PO STA (05:40)
[2017-05-28] MEDS: SODIUM CHLOR 0.45% + 20MEQ KCL 1,000 ML IV SCH ×2 (06:13→15:47)
[2017-05-28 07:26] VITALS: BP 144/83; PULSE 59; TEMP 36.7; O2SAT 97
[2017-05-28] MEDS ORDERED: POTASSIUM CHLORIDE 10 MEQ TABCR PO ONE (07:45)
[2017-05-28] MEDS: NICOTINE 21 MG/24 HR TDSY TD SCH (08:35)
[2017-05-28] MEDS: ENOXAPARIN 40 MG/0.4 ML SYR SQ SCH (08:36)
[2017-05-28] MEDS: BACLOFEN 10 MG TAB PO SCH ×2 (08:51→14:08)
[2017-05-28] MEDS: MULTIVITAMIN TAB PO SCH (08:51)
[2017-05-28] MEDS: MoRPHine SULFATE CR 15 MG TAB (MS CONTIN) PO SCH (08:51)
[2017-05-28] MEDS: AMLODIPINE BESYLATE 5 MG TAB PO SCH (08:51)
--- NOTE | 2017-05-28 15:10 | Neurology Progress Notes ---
Neurology Progress Note Date of Service May 28, 2017. Sylvie Swain is a 62 year old female who has a PMH HTN, COPD, ongoing tobacco abuse, mood disorder, anxiety, MS, chronic pain. Dr Alatorre neurology sees her for MS and she is currently on no modulating medications. She has progressive MS. She states she was at the pain clinic and her gabapentin was switched to Lyrica. She is currently on MS Contin 15 mg XR twice daily and oxycodone 5mg twice daily. Baclofen 20 mg BID but was held during admission. She also recently had a right tibia surgery by orthopedics in February 2017. Her is not in the room but according to documentation she was found on the floor by her . She had a bruise on her left cheek, lethargy and a blanket around her. He put her in her wheelchair and when he returned she was on the floor again. She is hoping to go home today. She feels much less confused today. denies CP, SOB, abdominal pain, vision changes bowel or bladder issues, N, V. Objective Date Time Temp Pulse Resp B/P (MAP) Pulse Ox O2 Delivery O2 Flow Rate FiO2 05/28/17 08:40 Room Air 05/28/17 08:00 Room Air 05/28/17 07:26 36.7 59 16 144/83 (103) 97 Room Air 05/28/17 00:00 Room Air 05/27/17 23:59 36.9 75 20 146/81 (102) 100 Room Air 05/27/17 19:42 86 18 91 Room Air 05/27/17 15:40 Room Air 05/27/17 15:15 83 98 05/27/17 15:14 36.0 87 20 147/80 (102) 97 Room Air Last 24 Hours Test 05/27/17 16:15 05/28/17 01:09 05/28/17 05:56 White Blood Count 6.33 K/uL Red Blood Count 4.57 M/uL Hemoglobin 12.0 g/dL Hematocrit 37.4 % Mean Corpuscular Volume 81.8 fL Mean Corpuscular Hemoglobin 26.3 pg Mean Corpuscular Hemoglobin Concent 32.1 g/dl Platelet Count 174 K/uL Mean Platelet Volume 9.6 fL Neutrophils (%) (Auto) 52.1 % Lymphocytes (%) (Auto) 39.2 % Monocytes (%) (Auto) 7.4 % Eosinophils (%) (Auto) 0.9 % Basophils (%) (Auto) 0.2 % Neutrophils # (Auto) 3.30 K/uL Lymphocytes # (Auto) 2.48 K/uL Monocytes # (Auto) 0.47 K/uL Eosinophils # (Auto) 0.06 K/uL Basophils # (Auto) 0.01 K/uL RDW Standard Deviation 43.2 fL RDW Coefficient of Variation 14.5 % Immature Granulocyte % (Auto) 0.2 % Immature Granulocyte # (Auto) 0.01 K/uL Sodium Level 144 mmol/L Potassium Level 3.4 mmol/L Chloride Level 111 mmol/L Carbon Dioxide Level 29 mmol/L Anion Gap 4.0 mmol/L Blood Urea Nitrogen 11 mg/dl Creatinine 0.61 mg/dl Est Creatinine Clear Calc Drug Dose 77.6 ml/min Estimated GFR () 114.2 Estimated GFR (Non- 98.5 BUN/Creatinine Ratio 18.2 Random Glucose 93 mg/dl Calcium Level 8.3 mg/dl Magnesium Level 2.1 mg/dl 2.1 mg/dl Total Creatine Kinase 474 U/L Imaging: no new imaging Exam: Physical Exam: Constitutional: appearance pale frail Ears, Nose, Mouth and Throat: mucous membranes moist, no injection and skin normal, eyes normal Cardiovascular: normal S-1 and S-2 and regular rate and rhythm Respiratory: clear to auscultation (CTA) and no rales, rhonchi or wheeze Musculoskeletal: no peripheral edema and good distal pulses Skin: no stigmata of neurocutaneous disease noted and normal and intact Eyes: extraocular muscles intact (EOMI) and pupils equal, round and reactive to light (PERRL) NEUROLOGIC EXAMINATION: Mental status: Alert and interactive Oriented [facility] Oriented to person Speech fluent with no evidence of aphasia Cranial Nerves facial symmetry Reflexes: Deep tendon reflexes brisk reflexes Sensory: to light touch Coordination: finger to nose without bi pass, no cog wheeling no resting or reaching tremor Gait/Stance: Posture sitting up in bed Strength: generalized weakness, unable to lift right LE against gravity, left LE 4+/5 Current Inpatient Medications Medications (Trade) Dose Ordered Sig/Elodia Route Start Time Stop Time Status Last Admin Dose Admin Enoxaparin Sodium (Lovenox Inj) 40 mg Q24H SQ 05/27/17 09:00 06/26/17 08:59 Acetaminophen (Tylenol Tab) 650 mg Q4H PRN PO 05/26/17 21:15 06/25/17 21:14 Multivitamins (Multivitamin Tab) 1 tab DAILY PO 05/27/17 08:00 06/26/17 08:59 05/28/17 08:51 1 TAB Nicotine (Nicoderm Cq 21MG Patch) 1 patch DAILY TD 05/27/17 08:00 06/26/17 08:59 Oxycodone HCl (Roxicodone Immediate Rel Tab) 10 mg BID PRN PO 05/26/17 21:15 06/09/17 21:14 05/27/17 21:30 5 MG Ketorolac Tromethamine (Toradol Inj) 30 mg Q6H PRN IV 05/26/17 21:15 05/31/17 21:14 Ibuprofen (Advil Tab) 400 mg Q6H PRN PO 05/26/17 21:15 06/25/17 21:14 Ondansetron HCl (Zofran Inj) 4 mg Q6H PRN IV 05/26/17 21:15 06/25/17 21:14 Morphine Sulfate (Oramorph Sr Tab) 15 mg Q12 PO 05/27/17 09:00 06/10/17 08:59 05/28/17 08:51 15 MG Amlodipine Besylate (Norvasc Tab) 2.5 mg DAILY PO 05/27/17 08:00 06/26/17 08:59 05/28/17 08:51 2.5 MG Clonazepam (Klonopin Tab) 2 mg TID PRN PO 05/26/17 21:45 06/25/17 21:44 Ipratropium [place] (Atrovent 0.02% 0.5MG/2.5ML Neb) 0.5 mg Q6R INH 05/27/17 03:00 06/26/17 02:59 05/27/17 19:41 0.5 MG Levalbuterol (Xopenex 1.25MG/ 0.5ML Neb) 1.25 mg Q6R INH 05/27/17 03:00 06/26/17 02:59 05/27/17 19:42 1.25 MG Ipratropium [place] (Atrovent 0.02% 0.5MG/2.5ML Neb) 0.5 mg Q4H PRN INH 05/26/17 22:45 06/25/17 22:44 Levalbuterol (Xopenex 1.25MG/ 0.5ML Neb) 1.25 mg Q4H PRN INH 05/26/17 22:45 06/25/17 22:44 Menthol (Nice Michelle) 1 michelle PRN PRN PO 05/27/17 16:45 06/26/17 16:44 Baclofen (Lioresal Tab) 10 mg TID PO 05/27/17 20:00 06/26/17 19:59 05/28/17 14:08 10 MG Potassium Chloride/Sodium Chloride 1,000 ml @ 100 mls/hr Q10H IV 05/28/17 05:45 05/28/17 17:44 05/28/17 06:13 100 MLS/HR Impression 62 year old female history of MS primary progressive Plan 1. narcotics would continue with caution to avoid sedation- management by pain clinic 2. gabapentin was switched to Lyrica currently on hold 3. baclofen 20 mg BID would not stop abruptly restart at lower dosing switched to baclofen 10 mg TID 4. PT/OT for recommendations- patient would benefit from rehab 5. check Vitamin D - low would give prescription for Vit D 50,000 IU per week for 8 weeks 6. follow with ortho as scheduled 7. follow up in neurology in 3-4 weeks after discharge I have discussed above patient with Dr Cyril Alatorre, neurology Reviewed agree with above patient seen and will be discharged today Juli Alatorre MD
--- NOTE | 2017-05-28 16:03 | Progress Note ---
Medicine Progress Note Date & Time of Visit: May 28, 2017 at 15:54. Subjective patient seen resting in bed , sitting up oriented x 3, answers all questions appropriately states she is back to baseline denies confusion denies other symptoms states she is ready and would like to be discharged today Objective Last 8 Hrs Date Time Temp Pulse Resp B/P (MAP) Pulse Ox O2 Delivery O2 Flow Rate FiO2 05/28/17 08:40 Room Air 05/28/17 08:00 Room Air Physical Exam: General- oriented x 3, not in distress, speaks in sentences with no effort Head- atraumatic Eyes- EOMI, anicteric ENT- oropharynx clear Neck- supple, no JVD, no adenopathy Lungs- clear breath sounds bilaterally, no rales/wheezes Heart- regular rhythm; no murmur, normal rate Abdomen- normal bowel sounds, soft, nontender Extremities- no pretibial edema, no calf tenderness Neuro- alert, oriented x 3;no gross focal deficits Skin- warm & dry Laboratory Results: Last 24 Hours Test 05/27/17 16:15 05/28/17 01:09 05/28/17 05:56 White Blood Count 6.33 K/uL Red Blood Count 4.57 M/uL Hemoglobin 12.0 g/dL Hematocrit 37.4 % Mean Corpuscular Volume 81.8 fL Mean Corpuscular Hemoglobin 26.3 pg Mean Corpuscular Hemoglobin Concent 32.1 g/dl Platelet Count 174 K/uL Mean Platelet Volume 9.6 fL Neutrophils (%) (Auto) 52.1 % Lymphocytes (%) (Auto) 39.2 % Monocytes (%) (Auto) 7.4 % Eosinophils (%) (Auto) 0.9 % Basophils (%) (Auto) 0.2 % Neutrophils # (Auto) 3.30 K/uL Lymphocytes # (Auto) 2.48 K/uL Monocytes # (Auto) 0.47 K/uL Eosinophils # (Auto) 0.06 K/uL Basophils # (Auto) 0.01 K/uL RDW Standard Deviation 43.2 fL RDW Coefficient of Variation 14.5 % Immature Granulocyte % (Auto) 0.2 % Immature Granulocyte # (Auto) 0.01 K/uL Sodium Level 144 mmol/L Potassium Level 3.4 mmol/L Chloride Level 111 mmol/L Carbon Dioxide Level 29 mmol/L Anion Gap 4.0 mmol/L Blood Urea Nitrogen 11 mg/dl Creatinine 0.61 mg/dl Est Creatinine Clear Calc Drug Dose 77.6 ml/min Estimated GFR () 114.2 Estimated GFR (Non- 98.5 BUN/Creatinine Ratio 18.2 Random Glucose 93 mg/dl Calcium Level 8.3 mg/dl Magnesium Level 2.1 mg/dl 2.1 mg/dl Total Creatine Kinase 474 U/L Assessment & Plan Lethargy/Drowsiness Mostly related to medications CT head on admission showed no acute intracranial abnormality. - Neuro consulted - recommend to stop Lyrica, decrease Baclofen 10mg BID patient advised to take opioid medications carefully as directed, and not to take them together Rhabdomyolysis Due to fall possible related to polypharmacy and ambulatory dysfunction from worsening MS CK on admission was 1242 --> 400S given IV fluids Ambulatory dysfunction/ Fall Recent fracture in right leg, has not been walking for month PT recommended inpatient rehab -- patient declines Rehab, explained that she is at risk for falls and injuries if she goes home directly home, patient verbalized agreement/understanding Hypertension BP stable not on any med COPD Continue duoneb treatment Stable Fibromyalgia/chronic pain syndrome On morphine/ oxycodone/baclofen Continue follow up with pain management Tobacco abuse On nicotine patch counseling on smoking cessation DVT px on lovenox subq CODE STATUS FULL CODE Disposition d/c home today ff up with PCP in 3-5 days ff up with Pain Management in 1 week Consultants: Neuro Current Inpatient Medications: Current Inpatient Medications Medications (Trade) Dose Ordered Sig/Elodia Route Start Time Stop Time Status Last Admin Dose Admin Enoxaparin Sodium (Lovenox Inj) 40 mg Q24H SQ 05/27/17 09:00 06/26/17 08:59 Acetaminophen (Tylenol Tab) 650 mg Q4H PRN PO 05/26/17 21:15 06/25/17 21:14 Multivitamins (Multivitamin Tab) 1 tab DAILY PO 05/27/17 08:00 06/26/17 08:59 05/28/17 08:51 1 TAB Nicotine (Nicoderm Cq 21MG Patch) 1 patch DAILY TD 05/27/17 08:00 06/26/17 08:59 Oxycodone HCl (Roxicodone Immediate Rel Tab) 10 mg BID PRN PO 05/26/17 21:15 06/09/17 21:14 05/27/17 21:30 5 MG Ketorolac Tromethamine (Toradol Inj) 30 mg Q6H PRN IV 05/26/17 21:15 05/31/17 21:14 Ibuprofen (Advil Tab) 400 mg Q6H PRN PO 05/26/17 21:15 06/25/17 21:14 Ondansetron HCl (Zofran Inj) 4 mg Q6H PRN IV 05/26/17 21:15 06/25/17 21:14 Morphine Sulfate (Oramorph Sr Tab) 15 mg Q12 PO 05/27/17 09:00 06/10/17 08:59 05/28/17 08:51 15 MG Amlodipine Besylate (Norvasc Tab) 2.5 mg DAILY PO 05/27/17 08:00 06/26/17 08:59 05/28/17 08:51 2.5 MG Clonazepam (Klonopin Tab) 2 mg TID PRN PO 05/26/17 21:45 06/25/17 21:44 Ipratropium [place] (Atrovent 0.02% 0.5MG/2.5ML Neb) 0.5 mg Q6R INH 05/27/17 03:00 06/26/17 02:59 05/27/17 19:41 0.5 MG Levalbuterol (Xopenex 1.25MG/ 0.5ML Neb) 1.25 mg Q6R INH 05/27/17 03:00 06/26/17 02:59 05/27/17 19:42 1.25 MG Ipratropium [place] (Atrovent 0.02% 0.5MG/2.5ML Neb) 0.5 mg Q4H PRN INH 05/26/17 22:45 06/25/17 22:44 Levalbuterol (Xopenex 1.25MG/ 0.5ML Neb) 1.25 mg Q4H PRN INH 05/26/17 22:45 06/25/17 22:44 Menthol (Nice Michelle) 1 michelle PRN PRN PO 05/27/17 16:45 06/26/17 16:44 Baclofen (Lioresal Tab) 10 mg TID PO 05/27/17 20:00 06/26/17 19:59 05/28/17 14:08 10 MG Potassium Chloride/Sodium Chloride 1,000 ml @ 100 mls/hr Q10H IV 05/28/17 05:45 05/28/17 17:44 05/28/17 15:47 100 MLS/HR
[2017-05-28 16:04] VITALS: BP 151/88; PULSE 82; TEMP 37.3; O2SAT 96
[2017-05-28] MEDS ORDERED: BACL20TA PO (16:07)
[2017-05-28] MEDS ORDERED: NRV5 PO (16:07)
--- NOTE | 2017-05-28 16:14 | Discharge Instructions ---
Discharge Instructions Date of Service May 28, 2017. Admission Reason for Admission: Rhabdomyolysis Discharge Discharge Diagnosis / Problem: Rhabdomyolysis Discharge Goals Goal(s): Diagnostic testing, Therapeutic intervention Activity Recommendations Activity Limitations: as noted below (increase activity as tolerated; no heavy exertion until re-evaluated by Primary Care Physician) Lifting Limitations: until after follow-up appointment Exercise/Sports Limitations: until after follow-up appointment . Instructions / Follow-Up Instructions / Follow-Up PLEASE REVIEW YOUR NEW MEDICATION LIST AND FOLLOW INSTRUCTIONS CAREFULLY. DO NO TAKE MORPHINE AND OXYCODONE TOGETHER. ALWAYS AMBULATE WITH CAUTION. ENSURE ADEQUATE DAILY FLUID INTAKE. CALL YOUR PRIMARY CARE PHYSICIAN OR RETURN TO ER IMMEDIATELY IF YOU HAVE RECURRENCE OF SYMPTOMS, INCREASING PAIN, ANXIETY. FOLLOW UP WITH PRIMARY CARE PHYSICIAN DR. MIRANDA ON SATURDAY JUNE 03, 2017 AT 1:05PM. FOLLOW UP WITH NEUROLOGIST DR. LOPEZ IN 3-4 WEEKS. Current Hospital Diet Patient's current hospital diet: AHA Diet (Heart Healthy) Discharge Diet Recommended Diet: AHA Diet (Heart Healthy) Pending Studies Studies pending at discharge: no Medical Emergencies . Who to Call and When: Medical Emergencies: If at any time you feel your situation is an emergency, please call 911 immediately. . Non-Emergent Contact Non-Emergency issues call your: Primary Care Provider Call Non-Emergent contact if: you have a fever, your pain is not controlled, your pain is worsening, you have any medication questions . . "Provider Documentation" section prepared by Tye Ribera. . VTE Core Measure Inpt VTE Proph given/why not?: Enoxaparin (Lovenox)SQ
[2017-05-28] MEDS ORDERED: VTMD1000 PO (16:15)
[2017-05-28] MEDS ORDERED: MCRK20 PO (16:17)
--- NOTE | 2017-05-28 16:25 | Discharge Summary ---
Discharge Summary Date of Service May 28, 2017. Discharge Summary Admission Date: May 26, 2017 at 20:59 Discharge Date: May 28, 2017 Discharge Disposition: Home Principal Diagnosis: Lethargy/Drowsiness Mostly related to medications Secondary Diagnoses/Problems: Please refer to hospital course below. Procedures: HEAD CT NONCONTRAST CT DOSE: 996.53 mGy.cm HISTORY: fall TECHNIQUE: Multiaxial CT images of the head were performed without the use of intravenous contrast. Automated exposure control was utilized for this study. A dose lowering technique was utilized adhering to the principles of ALARA. Comparison: None. Findings: The paranasal sinuses and mastoid air cells are clear. The calvarium and skull base are intact. The ventricles and sulci are within normal limits. There is no mass, hematoma, midline shift, or acute infarct. 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 Mild left periorbital soft tissue swelling. Impression: No acute intracranial abnormality. Mild left periorbital soft tissue swelling. CERVICAL SPINE CT CT DOSE: HISTORY: Neck pain. fall TECHNIQUE: Multiaxial CT images of the cervical spine were performed and reformatted in the sagittal and coronal plane without the use of contrast. A dose lowering technique was utilized adhering to the principles of ALARA. COMPARISON: Cervical spine CT 05/29/2013. FINDINGS: No fractures. No subluxation. Prevertebral soft tissues and the C1-C2 interval are intact. No pneumothorax. Moderate left and mild right facet degenerative changes. A 7 mm hypodense nodule within the right thyroid lobe. IMPRESSION: No fractures within the cervical spine. Consultations: Neuro Dr. Alatorre Pending Studies/Follow-Up: Please refer to hospital course below. Medication Reconciliation New Medications: Cholecalciferol (Vitamin D3) 1,000 Inter.unit Tab 1 TAB PO DAILY for 30 Days, #30 TABS 2 Refills Potassium Chloride (Klor-Con M20) 20 Meq Tabcr 1 TAB PO DAILY for 5 Days, #5 TAB 0 Refills Amlodipine Besylate (Amlodipine Besylate) 5 Mg Tab 2.5 MG PO DAILY for 30 Days, #30 TAB 2 Refills Changed Medications: Baclofen (Lioresal) 20 Mg Tab 10 MG PO BID for 10 Days, TAB (Changed from: 20 MG) Continued Medications: Albuterol Hfa (Ventolin Hfa) 200 Puffs/28271 Mcg Aers 2 PUFFS INH QID PRN for Shortness of Breath, #1 INHALER Clonazepam (Klonopin) 2 Mg Tab 2 MG PO TID PRN for Anxiety, TAB Clonazepam (Klonopin) 2 Mg Tab 1-2 TABS PO HS PRN for RESTLESS LEGS, TAB Ipratropium-Albuterol (Duoneb) 3 Ml Nebu 1 TREATMENT INH QID, INHA Morphine Sulfate (Morphine Sulfate Er) 15 Mg Tab 1 TAB PO Q12 for 30 Days, #60 TAB Multiple Vitamin (Multivitamin) 1 Tab Tab 1 TAB PO DAILY for 90 Days, #90 TAB 3 Refills Nicotine (Nicoderm Cq 21MG Patch) 21 Mg/24 Hr Dis 1 PATCH TD DAILY, PATCH Oxycodone Hcl (Oxycodone Hcl) 10 Mg Tab 1 TAB PO BID PRN for Pain for 30 Days, #60 TAB NO MORE THEN 2 PILLS A DAY, BY AT LEAST 8 HOURS. Discontinued Medications: Pregabalin (Lyrica) 100 Mg Cap 150 MG PO HS, CAP Admission Information HPI (per Admitting provider): DATE OF ADMISSION: 05/26/2017 PRIMARY CARE DOCTOR: Sarah CHIEF COMPLAINT: Fall as per records. HISTORY OF PRESENT ILLNESS: History was obtained from the patient's and records. Unable to obtain history from patient secondary to obtunded state at time of encounter. Medical history is significant for HTN not on meds, COPD, ongoing tobacco abuse , mood disorder, anxiety, MS, chronic pain/fibromyalgia as per records on narcotics. Recent confinement in the hospital under Orthopedic service in February 2017 for right tibia surgery. As per , the patient chronic pain from MS has been worsening of late. Last visit at the local [facility] clinic for pain management concerns was a few days ago. Gabapentin was to be switched Lyrica. Patient was requested to adjust MS Contin dose at 7:00 a.m. and 9:00 p.m. PX dcd on regimen of MS Contin and oxycodone at the same time b.i.d. each, Lyrica 150 mg hs, Baclofen twice a day. Three days ago, urine was noted to be dark and foul-smelling as per . No fever, no chills. Patient noted to be sleeping a lot of late as per Patient was found on the floor by her today. She had a bruise on her left cheek. Patient was awake but sleepy and had a blanket around her. Denies chest pain, shortness of breath or syncope/loss of consciousness. Patient told her she thought she hit her head on the foot of the bed. Patient's sat her up on the wheelchair and went outside her room to get something. Upon his return, he found patient had fallen on the floor again. Patient was brought to the Emergency Room. Given IV Ceftriaxone for possible UTI. Physical Exam (per Admitting): VITAL SIGNS: Blood pressure was noted to be 170/110 pulse rate 111 later 90, RR 26 T 37 sats 95 on room air. GENERAL: Noted to be obtunded, in no respiratory distress. SKIN: Normal color. HEENT: Contusion on the left cheek. NECK: Short CHEST: Decreased effort. HEART: RRR ABDOMEN: Soft. EXTREMITIES: No edema, no tenderness, immobilization device on the right lower extremity. NEUROLOGIC: Obtunded, mid-dilated pupils. Hospital Course Lethargy/Drowsiness Mostly related to medications CT head on admission showed no acute intracranial abnormality. - Neuro consulted - recommend to stop Lyrica, decrease Baclofen 10mg BID patient strongly advised to take opioid medications carefully as directed, and not to take them together Rhabdomyolysis Due to fall possible related to polypharmacy and ambulatory dysfunction from worsening MS CK on admission was 1242 given IV fluids improved to 400s Ambulatory dysfunction/ Fall Multiple Sclerosis Recent fracture in right leg, has not been walking for month PT recommended inpatient rehab -- patient declines Rehab or Home health with PT, explained that she is at risk for falls and injuries if she does not have PT, patient verbalized agreement/ understanding Mild Hypokalemia -- K supplement given -- repeat K on follow up with PCP Vit D Deficiency -- Vit D 13 -- Vit D 1,000 units daily started -- repeat level as outpatient Right Thyroid Lobe Nodule -- seen on CT cervical spine A 7 mm hypodense nodule within the right thyroid lobe. -- TSH 0.23 T4 0.87 -- further work up and follow up as outpatient Hypertension Amlodipine started for elevated BPs monitor COPD Continue duoneb treatment Stable Fibromyalgia/chronic pain syndrome On morphine/ oxycodone/baclofen Continue follow up with pain management Tobacco abuse On nicotine patch counseling on smoking cessation DVT px on lovenox subq CODE STATUS FULL CODE Disposition d/c home today ff up with PCP in 1 week ff up with Pain Management in [address] Alatorre in 3-4 weeks Total time spent on discharge = 45 MINUTES This includes examination of the patient, discharge planning, medication reconciliation, and communication with other providers. Discharge Instructions Discharge Instructions Date of Service May 28, 2017. Admission Reason for Admission: Rhabdomyolysis Discharge Discharge Diagnosis / Problem: Rhabdomyolysis Discharge Goals Goal(s): Diagnostic testing, Therapeutic intervention Activity Recommendations Activity Limitations: as noted below (increase activity as tolerated; no heavy exertion until re-evaluated by Primary Care Physician) Lifting Limitations: until after follow-up appointment Exercise/Sports Limitations: until after follow-up appointment . Instructions / Follow-Up Instructions / Follow-Up PLEASE REVIEW YOUR NEW MEDICATION LIST AND FOLLOW INSTRUCTIONS CAREFULLY. DO NO TAKE MORPHINE AND OXYCODONE TOGETHER. ALWAYS AMBULATE WITH CAUTION. ENSURE ADEQUATE DAILY FLUID INTAKE. CALL YOUR PRIMARY CARE PHYSICIAN OR RETURN TO ER IMMEDIATELY IF YOU HAVE RECURRENCE OF SYMPTOMS, INCREASING PAIN, ANXIETY. FOLLOW UP WITH PRIMARY CARE PHYSICIAN DR. MIRANDA ON SATURDAY JUNE 03, 2017 AT 1:05PM. FOLLOW UP WITH NEUROLOGIST DR. ALATORRE IN 3-4 WEEKS. Current Hospital Diet Patient's current hospital diet: AHA Diet (Heart Healthy) Discharge Diet Recommended Diet: AHA Diet (Heart Healthy) Pending Studies Studies pending at discharge: no Medical Emergencies . Who to Call and When: Medical Emergencies: If at any time you feel your situation is an emergency, please call 911 immediately. . Non-Emergent Contact Non-Emergency issues call your: Primary Care Provider Call Non-Emergent contact if: you have a fever, your pain is not controlled, your pain is worsening, you have any medication questions . . "Provider Documentation" section prepared by Tye Ribera. . VTE Core Measure Inpt VTE Proph given/why not?: Enoxaparin (Lovenox)SQ
[2017-05-28 16:38] VITALS: BP 151/88; PULSE 82; TEMP 37.3; O2SAT 96
[2017-05-28] MEDS ORDERED: AMIT50TA3 PO (20:06)
[2017-05-29 12:19] LABS: COD UR NEGATIVE NG/ML (CUTOFF=50); HYDROCOD UR NEGATIVE NG/ML (CUTOFF=50); HYDROMOR UR 256 NG/ML (CUTOFF=50); HYDROXYETHYLFLURAZEPAM CONF NEGATIVE NG/ML (CUTOFF=50); HYDROXYMIDAZOLAM NEGATIVE NG/ML (CUTOFF=50); HYDROXYTRIAZOLAM CONF NEGATIVE NG/ML (CUTOFF=50); MORPHINE UR 17500 NG/ML (CUTOFF=50); NORHYDROCODONE CONF UR NEGATIVE NG/ML (CUTOFF=50); OXYMORPH UR 1310 NG/ML (CUTOFF=50); TEMAZEPAM CONF NEGATIVE NG/ML (CUTOFF=50)
== END 2017-05-28 17:11 | disposition home or self-care (01) | DRG 59 ==
LOC: C.EDA 17:00 → EDBD 17:00 → C.4E 20:59 → ENRESERV 21:09
PROVIDERS: ADMIT Internal Medicine; ATTEND Internal Medicine
DX: G35 Multiple sclerosis (principal); M62.82 Rhabdomyolysis; S00.12XA Contusion of left eyelid and periocular area, initial encounter; S40.012A Contusion of left shoulder, initial encounter; Y92.009 Unspecified place in unspecified non-institutional (private) residence as the place of occurrence of the external cause; R29.6 Repeated falls; W19.XXXA Unspecified fall, initial encounter; T42.6X5A Adverse effect of other antiepileptic and sedative-hypnotic drugs, initial encounter; S82.201D Unspecified fracture of shaft of right tibia, subsequent encounter for closed fracture with routine healing; X58.XXXD Exposure to other specified factors, subsequent encounter; E87.6 Hypokalemia; E55.9 Vitamin D deficiency, unspecified; E04.1 Nontoxic single thyroid nodule; I10 Essential (primary) hypertension; G89.4 Chronic pain syndrome; M79.7 Fibromyalgia; J44.9 Chronic obstructive pulmonary disease, unspecified; F39 Unspecified mood [affective] disorder; F17.200 Nicotine dependence, unspecified, uncomplicated; F41.9 Anxiety disorder, unspecified; Z79.891 Long term (current) use of opiate analgesic; Z79.899 Other long term (current) drug therapy

== ENCOUNTER 2019-03-30 09:21 | Inpatient (IN) ==
[2019-03-30] MEDS ORDERED: SODIUM CHLORIDE 0.9% 1000ML 1,000 ML IV ONE ×2 (09:30→10:56)
[2019-03-30] MEDS ORDERED: ALBUT/IPRATROP 3MG/0.5MG NEB 3 ML VIAL NEB ONE (09:30)
--- NOTE | 2019-03-30 09:41 | Emergency Department Note ---
Entered by Lindsey Seay acting as a scribe for Jose Presley DO History of Present Illness General Chief complaint: Weakness Time Seen by Provider: 03/30/19 09:25 Source: patient and other (nursing staff) History of Present Illness Provider complaint: weakness Onset (ago): hour(s) (today) Location: left and right Quality: + other (weakness) Associated symptoms: + other (65 on room air); no fever/chills The patient is a 64 year old female who presents to the Emergency Department with complaints of weakness today. She states that 4 days ago and this morning she did not take any medications. Per nursing staff, the patient had advanced MS and was very weak today. Per nu rsing staff, the patient was 65 on room air and was afebrile. Nursing staff states that per EMS, the patient is weaker on her right side. Home Medications Home Medications Medication Instructions Recorded Confirmed Type albuterol sulfate 2 puff INHALATION QID PRN 08/02/18 03/30/19 History amitriptyline 100 mg PO HS 08/02/18 03/30/19 History amlodipine 2.5 mg PO DAILY 08/02/18 03/30/19 History ergocalciferol (vitamin D2) 50,000 unit PO UD 08/02/18 03/30/19 History [Drisdol] gabapentin 3 cap PO HS 08/02/18 03/30/19 History ipratropium-albuterol 3 ml INHALATION QID PRN 08/02/18 03/30/19 History melatonin 10 mg PO HS 08/02/18 03/30/19 History tizanidine 4 mg PO UD 08/02/18 03/30/19 History clonazepam 2 mg PO DIRECTED 03/30/19 03/30/19 History doxepin [Silenor] 6 mg PO HS 03/30/19 03/30/19 History fluticasone propion-salmeterol 1 inh INHALATION BID 03/30/19 03/30/19 History mirtazapine 30 mg PO HS 03/30/19 03/30/19 History oxycodone 10 mg PO TID PRN 03/30/19 03/30/19 History Allergies Allergy/AdvReac Type Severity Reaction Status Date / Time No Known Allergies Allergy Unknown Verified 03/30/19 09:50 Past Med/Surg History Medical History Hemiparesis (Chronic) Tobacco use (Chronic) Multiple sclerosis (Chronic) Anxiety (Chronic) Persistent insomnia (Chronic) COPD (chronic obstructive pulmonary disease) (Chronic) Depression (Chronic) Dyslipidemia (Chronic) HTN (hypertension) (Chronic) Restless leg syndrome (Chronic) Left patella fracture (Resolved) "requiring internal fixation repair by Dr. King 2001" Ambulatory dysfunction (Chronic) Closed fracture of right tibia and fibula (Resolved) Surgical History History of total right hip arthroplasty (Chronic) "secondary to R hip fracture; performed by Dr. Murrieta 11/27/12 " Family History Father Heart disease Social History Preferred Language: Croatian Communication Ability: Effective Visual Impairment: No Limitations Hearing Ability: Normal House Mother Required: No Beliefs That Will Affect Care: None marital status: Current Living Situation: Spouse Other Information That Helps Us Care for You: No Feels Safe at Home: Yes Safety Concerns: Feels Safe At This Time Smoking Status: Current every day smoker Tobacco Type: cigarettes Cigarettes Per Day: 10 Do You Dip or Chew Tobacco: No Second Hand Exposure: No Tobacco Cessation Education Requested by Patient: No Hx Alcohol Use: No Hx Substance Use: No Review of Systems See HPI for pertinent positives & negatives. and A total of 10 systems reviewed and were otherwise negative Physical Exam Vital Signs Vital Signs - 24 hr 03/30/19 09:24 03/30/19 09:30 03/30/19 09:39 Temperature 37.7 C H Temperature Source Oral Sepsis Recent Fever Within 48 Hours No Sepsis New/Unexplained Change in Mental Status No Sepsis Action Taken by Nursing No Action Required Pulse Rate 106 H 103 H Pulse Rate [Right Apical] Respiratory Rate 22 37 H Respiratory Effort / Characteristics Spontaneous Accessory Muscle Use Short of Breath Respiratory Depth Normal Normal Respiratory Pattern Tachypnea Blood Pressure 135/89 Blood Pressure [Left Arm] Blood Pressure Mean 104 Blood Pressure Mean [Left Arm] Pulse Oximetry 65 L 66 L 87 L Oxygen Delivery Method Room Air Room Air Oxygen Flow Rate Fraction of Inspired Oxygen 100 03/30/19 09:40 03/30/19 09:42 03/30/19 09:45 Temperature Temperature Source Sepsis Recent Fever Within 48 Hours Sepsis New/Unexplained Change in Mental Status Sepsis Action Taken by Nursing Pulse Rate Pulse Rate [Right Apical] 104 H 100 H Respiratory Rate 32 H 22 Respiratory Effort / Characteristics Spontaneous Accessory Muscle Use Short of Breath Respiratory Depth Respiratory Pattern Blood Pressure Blood Pressure [Left Arm] Blood Pressure Mean Blood Pressure Mean [Left Arm] Pulse Oximetry 70 L 93 96 Oxygen Delivery Method Room Air Oxymask BiPAP BiPAP Oxygen Flow Rate 0 Fraction of Inspired Oxygen 100 03/30/19 10:30 03/30/19 11:11 Temperature Temperature Source Sepsis Recent Fever Within 48 Hours Sepsis New/Unexplained Change in Mental Status Sepsis Action Taken by Nursing Pulse Rate Pulse Rate [Right Apical] 100 H 100 H Respiratory Rate 16 22 Respiratory Effort / Characteristics Respiratory Depth Respiratory Pattern Blood Pressure Blood Pressure [Left Arm] 164/96 H 154/81 H Blood Pressure Mean Blood Pressure Mean [Left Arm] 118 105 Pulse Oximetry 97 98 Oxygen Delivery Method BiPAP BiPAP Oxygen Flow Rate Fraction of Inspired Oxygen GENERAL: Patient is listless and slow to respond to questioning. She is in moderate distress and having significant difficulty breathing. The patient answers questions appropriately but requires significant prompting. EYES: The conjunctivae are clear. The pupils are round and reactive. EARS, NOSE, MOUTH AND THROAT: Mucous members are dry. NECK: The neck is nontender and supple. RESPIRATORY: Shallow and ineffective respirations are noted. There are diminished breath sounds noted in the right lung field. CARDIOVASCULAR: Tachycardic rate with regular rhythm was noted. There is no definite murmur appreciated. GASTROINTESTINAL: The abdomen is soft. Bowel sounds are present in all quadrants. Abdomen is nontender MUSCULOSKELETAL/EXTREMITIES: There is no evidence of gross deformity full range of motion is noted in the hips and shoulders SKIN: There is no obvious evidence of any rash. Skin is warm and dry. There is trace pedal edema bilaterally. NEUROLOGIC: Patient is oriented to person place and situation. Strength was diminished. Course 0926: The patient was evaluated in room B4B. A history and physical were performed. 1037: I updated the patient's family who verbalized agreement and understanding of the treatment plan. 1043: I discussed the patient's case with Faith Felix who will evaluate the patient for further management. Consultations Consultation #1: Faith Felix Time: 10:43 Administered Medications Albuterol (Duoneb) 3 ml NEB Q4R HALINA Stop: 04/29/19 13:02 Last Admin: 03/31/19 11:12 Dose: 3 ml Documented by: [id number] Admin: 03/31/19 07:36 Dose: Not Given Documented by: [id number] Admin: 03/31/19 03:49 Dose: 3 ml Documented by: [id number] Admin: 03/30/19 23:15 Dose: 3 ml Documented by: [id number] Admin: 03/30/19 18:58 Dose: 3 ml Documented by: [id number] Admin: 03/30/19 15:28 Dose: 3 ml Documented by: [id number] Admin: 03/30/19 14:44 Dose: Not Given Documented by: [id number] Amlodipine Besylate (Norvasc) 2.5 mg PO DAILY HALINA Stop: 04/30/19 08:59 Last Admin: 03/31/19 08:13 Dose: 2.5 mg Documented by: [id number] Gabapentin (Neurontin) 900 mg PO HS HALINA Stop: 04/29/19 20:59 Last Admin: 03/30/19 22:03 Dose: 900 mg Documented by: [id number] Heparin Sodium (Porcine) (Heparin Sodium (Porcine)) 5,000 units SQ Q8 HALINA Stop: 04/29/19 13:59 Last Admin: 03/31/19 13:06 Dose: Not Given Documented by: [id number] Admin: 03/31/19 06:42 Dose: Not Given Documented by: [id number] Admin: 03/30/19 22:05 Dose: 5,000 units Documented by: [id number] Cosigned by: [id number] Admin: 03/30/19 14:30 Dose: 5,000 units Documented by: [id number] Cosigned by: [id number] Methylprednisolone 40 mg/ (Syringe) 0.64 mls @ 1.5 mls/min IV DAILY HALINA Stop: 04/29/19 13:29 Last Admin: 03/31/19 08:12 Dose: 1.5 mls/min Documented by: [id number] Admin: 03/30/19 14:31 Dose: 1.5 mls/min Documented by: [id number] Piperacillin Sod/Tazobactam (Sod 3.375 gm/ Dextrose) 115 mls @ 28.75 mls/hr IV Q8H [facility]; Protocol Stop: 04/06/19 15:59 Last Infusion: 03/31/19 12:16 Dose: 0 mls/hr Documented by: [id number] Admin: 03/31/19 08:12 Dose: 28.7 mls/hr Documented by: [id number] Infusion: 03/31/19 04:27 Dose: 0 mls/hr Documented by: [id number] Admin: 03/30/19 23:07 Dose: 28.7 mls/hr Documented by: [id number] Infusion: 03/30/19 21:55 Dose: 0 mls/hr Documented by: [id number] Admin: 03/30/19 16:50 Dose: 28.8 mls/hr Documented by: [id number] Insulin Aspart (Novolog Flexpen) 0 units SC ACHS [facility] Stop: 04/30/19 16:29 Last Admin: 03/31/19 13:05 Dose: 8 units Documented by: [id number] Cosigned by: [id number] Miscellaneous (Remove Nicoderm Patch) 1 ea N/A HS [facility] Stop: 04/29/19 20:59 Last Admin: 03/30/19 22:04 Dose: 1 ea Documented by: [id number] Nicotine (Nicoderm Cq) 14 mg TD QAM [facility] Stop: 04/29/19 16:59 Last Admin: 03/31/19 08:13 Dose: 14 mg Documented by: [id number] Admin: 03/30/19 18:33 Dose: 14 mg Documented by: [id number] Oxycodone HCl (Roxicodone Immediate Rel) 10 mg PO TID PRN PRN Reason: Pain Stop: 04/13/19 20:52 Last Admin: 03/31/19 13:18 Dose: 10 mg Documented by: [id number] Admin: 03/30/19 22:02 Dose: 10 mg Documented by: [id number] Fluticasone/Salmeterol (Advair Diskus 250/50) 1 puffs INH BID [facility] Stop: 04/29/19 20:59 Last Admin: 03/31/19 08:12 Dose: 1 puffs Documented by: [id number] Admin: 03/30/19 22:03 Dose: 1 puffs Documented by: [id number] Discontinued Medications Albuterol (Duoneb) 12 ml NEB ONE ONE Stop: 03/30/19 09:31 Last Admin: 03/30/19 09:42 Dose: 12 ml Documented by: [id number] Clonazepam (Klonopin) 2 mg PO HS ONE Stop: 03/30/19 20:57 Last Admin: 03/30/19 22:02 Dose: 2 mg Documented by: [id number] Enoxaparin Sodium (Lovenox) 40 mg SQ Q24H [facility]INA Stop: 04/29/19 13:02 Last Admin: 03/30/19 14:46 Dose: Not Given Documented by: [id number] Sodium Chloride (Nss 1000ml) 1,000 mls @ 999 mls/hr IV .Q1H1M ONE Stop: 03/30/19 10:30 Last Infusion: 03/30/19 10:45 Dose: 0 mls/hr Documented by: [id number] Admin: 03/30/19 09:44 Dose: 999 mls/hr Documented by: [id number] Piperacillin Sod/Tazobactam Sod (Zosyn) 4.5 gm in 120 mls @ 240 mls/hr IV NOW ONE Stop: 03/30/19 11:02 Last Infusion: 03/30/19 11:20 Dose: 0 mls/hr Documented by: [id number] Admin: 03/30/19 10:49 Dose: 240 mls/hr Documented by: [id number] Lorazepam (Ativan) 0.5 mg in 1 mls @ 1 mls/min IV NOW STA Stop: 03/30/19 10:45 Last Admin: 03/30/19 14:46 Dose: Not Given Documented by: [id number] Sodium Chloride (Nss 1000ml) 1,000 mls @ 999 mls/hr IV .Q1H1M ONE Stop: 03/30/19 11:56 Last Admin: 03/30/19 14:46 Dose: Not Given Documented by: [id number] Sodium Chloride (Nss 1000ml) 1,000 mls @ 100 mls/hr IV .Q10H [facility] Stop: 03/30/19 23:02 Last Infusion: 03/30/19 22:04 Dose: 0 mls/hr Documented by: [id number] Admin: 03/30/19 14:31 Dose: 100 mls/hr Documented by: [id number] Sodium Chloride (Nss 1000ml) 1,000 mls @ 125 mls/hr IV .Q8H [facility]INA Stop: 03/31/19 13:14 Last Admin: 03/31/19 06:48 Dose: 125 mls/hr Documented by: [id number] Infusion: 03/31/19 06:04 Dose: 125 mls/hr Documented by: [id number] Admin: 03/30/19 22:04 Dose: 125 mls/hr Documented by: [id number] Insulin Glargine (Lantus Solostar Pen) 6 units SC ONE ONE Stop: 03/31/19 12:31 Last Admin: 03/31/19 13:04 Dose: 6 units Documented by: [id number] Cosigned by: [id number] Ioversol (Optiray 320 125ml) 93 ml IV ONCE PRN PRN Reason: Interaction Checking Stop: 04/03/19 12:34 Last Admin: 03/30/19 12:36 Dose: 93 ml Documented by: [id number] Potassium Chloride (Klor-Con M10) 20 meq PO NOW STA Stop: 03/31/19 08:21 Last Admin: 03/31/19 08:46 Dose: 20 meq Documented by: [id number] Medical Decision Making Differential Diagnosis Differential diagnosis: Etiologies such as infections, reactive airway disease, COPD, pneumonia, pleural effusion, pulmonary edema, ARDS, pneumothorax, CHF, cardiac ischemia, cardiac tamponade, dysrhythmia, anemia, pulmonary embolism, musculoskeletal, gastrointestinal process, as well as others were entertained.jose. Medical Records Attestation: I reviewed the patient's medical records. Home Medications Current Medication List: was personally reviewed by me Laboratory Data Attestation: I reviewed the patient's lab results. Result diagrams: 03/31/19 06:17 03/31/19 06:17 Lab Results 03/30/19 03/30/19 03/30/19 Range/Units 09:44 09:44 09:44 WBC 10.34 (4.8-10.8) K/uL RBC 5.08 (4.2-5.4) M/uL Hgb 14.4 (12.0-16.0) g/dL Hct 43.4 (37-47) % MCV 85.4 (80-100) fL MCH 28.3 (25-34) pg MCHC 33.2 (32-36) g/dL RDW Std Deviation 45.2 (36.4-46.3) fL RDW Coeff of Marilia 14.4 (11.5-14.5) % Plt Count 183 (130-400) K/uL MPV 9.5 (7.4-10.4) fL Immature Gran % (Auto) 0.3 % Neut % (Auto) 83.7 % Lymph % (Auto) 8.6 % [place] % (Auto) 7.3 % Eos % (Auto) 0.0 % Baso % (Auto) 0.1 % Immature Gran # (Auto) 0.03 H (0.00-0.02) K/uL Neut # (Auto) 8.66 H (1.4-6.5) K/uL Lymph # (Auto) 0.89 L (1.2-3.4) K/uL [place] # (Auto) 0.75 H (0.11-0.59) K/uL Eos # (Auto) 0.00 (0-0.5) K/uL Baso # (Auto) 0.01 (0-0.2) K/uL ESR 40 H (0-21) mm/hr PT 11.3 (9.0-12.0) Seconds INR 1.1 (0.9-1.1) APTT 28.1 (21.0-31.0) Seconds PTT Ratio 1.0 VBG pH (7.36-7.41) VBG pCO2 (38-50) mmHg VBG pO2 mmHg VBG HCO3 mmol/L VBG O2 Saturation % VBG Base Excess mEq/L Barometric Pressure mm/Hg Sodium (136-145) mmol/L Potassium (3.5-5.1) mmol/L Chloride (98-107) mmol/L Carbon Dioxide (21-32) mmol/L Anion Gap (3-11) BUN (7-18) mg/dl Creatinine (0.6-1.2) mg/dl Est Cr Clr Drug Dosing ml/min Est GFR ( Amer) Est GFR (Non-Af Amer) BUN/Creatinine Ratio (10-20) Glucose (70-99) mg/dl Lactate (0.4-2.0) mmol/L Calcium (8.5-10.1) mg/dl Magnesium (1.8-2.4) mg/dl Total Bilirubin (0.2-1) mg/dl AST (15-37) U/L ALT (12-78) U/L Alkaline Phosphatase (45-117) U/L Troponin I (0-0.045) ng/ml C-Reactive Protein (0-0.29) mg/dl NT-Pro-B Natriuret Pep (0-900) pg/ml Total Protein (6.4-8.2) gm/dl Albumin (3.4-5.0) gm/dl Globulin (2.5-4.0) gm/dl Albumin/Globulin Ratio (0.9-2) Procalcitonin (0-0.5) ng/ml 03/30/19 03/30/19 03/30/19 Range/Units 09:44 09:44 09:44 WBC (4.8-10.8) K/uL RBC (4.2-5.4) M/uL Hgb (12.0-16.0) g/dL Hct (37-47) % MCV (80-100) fL MCH (25-34) pg MCHC (32-36) g/dL RDW Std Deviation (36.4-46.3) fL RDW Coeff of Marilia (11.5-14.5) % Plt Count (130-400) K/uL MPV (7.4-10.4) fL Immature Gran % (Auto) % Neut % (Auto) % Lymph % (Auto) % [place] % (Auto) % Eos % (Auto) % Baso % (Auto) % Immature Gran # (Auto) (0.00-0.02) K/uL Neut # (Auto) (1.4-6.5) K/uL Lymph # (Auto) (1.2-3.4) K/uL [place] # (Auto) (0.11-0.59) K/uL Eos # (Auto) (0-0.5) K/uL Baso # (Auto) (0-0.2) K/uL ESR (0-21) mm/hr PT (9.0-12.0) Seconds INR (0.9-1.1) APTT (21.0-31.0) Seconds PTT Ratio VBG pH (7.36-7.41) VBG pCO2 (38-50) mmHg VBG pO2 mmHg VBG HCO3 mmol/L VBG O2 Saturation % VBG Base Excess mEq/L Barometric Pressure mm/Hg Sodium 139 (136-145) mmol/L Potassium 3.8 (3.5-5.1) mmol/L Chloride 103 (98-107) mmol/L Carbon Dioxide 25 (21-32) mmol/L Anion Gap 12.0 H (3-11) BUN 25 H (7-18) mg/dl Creatinine 1.26 H (0.6-1.2) mg/dl Est Cr Clr Drug Dosing 39.2 ml/min Est GFR ( Amer) 52.9 Est GFR (Non-Af Amer) 45.6 BUN/Creatinine Ratio 19.5 (10-20) Glucose 214 H (70-99) mg/dl Lactate 4.7 H* (0.4-2.0) mmol/L Calcium 9.4 (8.5-10.1) mg/dl Magnesium 2.5 H (1.8-2.4) mg/dl Total Bilirubin 0.6 (0.2-1) mg/dl AST 340 H (15-37) U/L ALT 241 H (12-78) U/L Alkaline Phosphatase 106 (45-117) U/L Troponin I 0.305 H* (0-0.045) ng/ml C-Reactive Protein 19.80 H (0-0.29) mg/dl NT-Pro-B Natriuret Pep 6766 H (0-900) pg/ml Total Protein 8.0 (6.4-8.2) gm/dl Albumin 3.7 (3.4-5.0) gm/dl Globulin 4.3 H (2.5-4.0) gm/dl Albumin/Globulin Ratio 0.9 (0.9-2) Procalcitonin 0.75 H (0-0.5) ng/ml 03/30/19 Range/Units 10:14 WBC (4.8-10.8) K/uL RBC (4.2-5.4) M/uL Hgb (12.0-16.0) g/dL Hct (37-47) % MCV (80-100) fL MCH (25-34) pg MCHC (32-36) g/dL RDW Std Deviation (36.4-46.3) fL RDW Coeff of Marilia (11.5-14.5) % Plt Count (130-400) K/uL MPV (7.4-10.4) fL Immature Gran % (Auto) % Neut % (Auto) % Lymph % (Auto) % [place] % (Auto) % Eos % (Auto) % Baso % (Auto) % Immature Gran # (Auto) (0.00-0.02) K/uL Neut # (Auto) (1.4-6.5) K/uL Lymph # (Auto) (1.2-3.4) K/uL [place] # (Auto) (0.11-0.59) K/uL Eos # (Auto) (0-0.5) K/uL Baso # (Auto) (0-0.2) K/uL ESR (0-21) mm/hr PT (9.0-12.0) Seconds INR (0.9-1.1) APTT (21.0-31.0) Seconds PTT Ratio VBG pH 7.35 L (7.36-7.41) VBG pCO2 46 (38-50) mmHg VBG pO2 32 mmHg VBG HCO3 25 mmol/L VBG O2 Saturation 61.0 % VBG Base Excess -1.1 mEq/L Barometric Pressure 733.0 mm/Hg Sodium (136-145) mmol/L Potassium (3.5-5.1) mmol/L Chloride (98-107) mmol/L Carbon Dioxide (21-32) mmol/L Anion Gap (3-11) BUN (7-18) mg/dl Creatinine (0.6-1.2) mg/dl Est Cr Clr Drug Dosing ml/min Est GFR ( Amer) Est GFR (Non-Af Amer) BUN/Creatinine Ratio (10-20) Glucose (70-99) mg/dl Lactate (0.4-2.0) mmol/L Calcium (8.5-10.1) mg/dl Magnesium (1.8-2.4) mg/dl Total Bilirubin (0.2-1) mg/dl AST (15-37) U/L ALT (12-78) U/L Alkaline Phosphatase (45-117) U/L Troponin I (0-0.045) ng/ml C-Reactive Protein (0-0.29) mg/dl NT-Pro-B Natriuret Pep (0-900) pg/ml Total Protein (6.4-8.2) gm/dl Albumin (3.4-5.0) gm/dl Globulin (2.5-4.0) gm/dl Albumin/Globulin Ratio (0.9-2) Procalcitonin (0-0.5) ng/ml Imaging Data Radiologist's Impression: Radiology results as stated below per my review and the radiologist's interpretation: XR chest 1V portable CLINICAL HISTORY: 64 years-old Female presenting with Sepsis. TECHNIQUE: Portable upright AP view of the chest was obtained. COMPARISON: 08/02/2018. FINDINGS: The patient is slightly ROCHA rotated. Atherosclerosis of the aortic arch. Cardiac silhouette top normal in size. Bilateral hilar prominence likely relates to pulmonary vascular prominence. Bronchial wall cuffing. Interlobular septal thickening. Mild hyperinflation and heterogeneity of lung parenchyma. Additionally, added density with hazy and reticular opacity at the right lung ba se. Minimal nodular and bandlike opacity at the left lung base. No large effusion or pneumothorax. Degenerative changes of the thoracic spine. Chronic posttraumatic left humeral neck deformity. Upper abdomen normal. IMPRESSION: 1. Infiltrate at the right lung base concerning for pneumonia. Developing edema considered less likely given the asymmetry. 2. Volume overload with congestive change. 3. Bilateral hilar prominence likely vascular in etiology or less likely lymphadenopathy. 4. Possible underlying chronic and/or obstructive lung disease. Electronically signed by: Marcial Matamoros M.D. 03/30/2019 10:[address] angio chest PE protocol CLINICAL HISTORY: 64 years-old Female presenting with shortness of breath, clinical concern for pulmonary embolus, sepsis. TECHNIQUE: Multidetector CT angiography of the chest was performed after adm inistration of intravenous contrast. 3-D volumetric and/or maximum intensity projection (MIP) images were subsequently reconstructed for review. IV contrast: 93 mL of Optiray 320. One or more dose lowering techniques were used consistent with the principles of ALARA (as low as reasonably achievable), including automatic exposure control, mA or kV adjustment to individual patient size, and/or use of iterative reconstruction. COMPARISON: 02/27/2016. CT DOSE (mGy.cm): The estimated cumulative dose is 437.77 mGy.cm. FINDINGS: [facility] topogram: Unremarkable. Pulmonary vasculature: The study is suboptimal for the assessment of the pulmonary vascular tree secondary to respiratory motion artifact. Allowing for limited image quality, no central filling defect to suggest pulmonary embolus. Apparent filling defect in the right lower lobe is most likely within a pulmonary vein as this does not juancho ear to connect to the pulmonary arterial tree. The evaluation is severely degraded in this region by respiratory motion artifact. Main pulmonary artery is not enlarged. No flattening of the interventricular septum. No intracardiac filling defect. No reflux of contrast into the hepatic veins. Remaining chest: Soft tissues: Grossly normal thyroid. Mild infiltration is suggested in the right base of the neck, nonspecific. No axillary, supraclavicular, mediastinal, or hilar lymphadenopathy. Atherosclerosis of the aorta. Normal heart size. Coronary artery calcification. No pericardial or pleural effusion. Upper abdomen normal. Lungs and airways: No pneumothorax. Central airways patent the extensive mucous plugging is suggested and subsegmental bronchi of the lower lobes. Pulmonary arteries are not significantly enlarged relative to adjacent bronchi. No interlobular septal thickening. Patchy groundglass opacities throughout the upper lobes. Extensive consolidation volume loss in the lower lobes with mucous plugging. Musculoskeletal: Degenerative changes of the spine. Advanced degenerative changes of the left glenohumeral joint. Moderate compression deformities of T12 and L1. This was present at T12 on the prior exam though new at L1. IMPRESSION: 1. Allowing for suboptimal image quality, no evidence of pulmonary embolus. 2. Multifocal groundglass infiltrates with an upper lobe predominance consistent with multifocal pneumonia. 3. Significant lower lobe volume loss with mucous plugging. 4. Moderate compression deformities at T12 and L1. The compression deformity at L1 is new since 2016. Correlate with point tenderness to assess for acuity. Electronically signed by: Marcial Matamoros M.D. 03/30/2019 12:51 PM ECG Data Attestation: I personally reviewed and interpreted this ECG as follows: Indication: SOB/dyspnea Rate (beats per minute): 106 Rhythm: sinus tachycardia Findings: + ST depression (lateral); no PAC, no PVC and no ectopy Comparison ECG Date: from (08/02/18) Change: no significant change Blood Pressure Blood Pressure Findings: Normal blood pressure MDM Narrative The patient is a 64-year-old female who presented to the emergency department for an evaluation of shortness of breath. The patient was very lethargic and had significant respiratory distress. She was placed on BiPAP. I discussed the patient's laboratory and radiographic studies with her. She was treated with IV antibiotics in the emergency department. On subsequent reevaluation she was significantly improved. I discussed the patient's laboratory and radiographic studies with her as well as the on-call [facility] hospitalist group. They have agreed to evaluate the patient in the emergency department for further management and disposition. Impression & Plan Respiratory failure, PNA (pneumonia), Hypoxia Critical Care Time Critical Care Time: Yes Total Critical Care Time: 45 I have personally spent 45 minutes of critical care time in the direct management of this patient. This includes bedside care, interpretation of diagnostic studies, and testing, discussion with consultants, patient, and family members, and other required patient management activities. This 45 minutes is in excess of all separately billable procedures. Discharge Plan Visit Data *Final* Discharge Date/Time: 03/30/19 12:17 Chief Complaint: Weakness ED Provider: Jose Presley Discharge Problem: Respiratory failure, PNA (pneumonia), Hypoxia Patient Disposition: Admitted As Inpatient Discharge Instructions Interventions: ED Discharge Assessment Last Done: 03/30/19 12:17 Discharge Problem: Respiratory failure Qualifiers: Chronicity: unspecified Respiratory failure complication: hypoxia Qualified Code(s): J96.91 - Respiratory failure, unspecified with hypoxia PNA (pneumonia) Qualifiers: Pneumonia type: due to unspecified organism Laterality: right Lung location: lower lobe of lung Qualified Code(s): J18.1 - Lobar pneumonia, unspecified organism The scribe's documentation has been prepared under my direction and personally reviewed by me in its entirety. I confirm that the note above accurately reflects all work, treatment, procedures, and medical decision making performed by me.
[2019-03-30 09:58] LABS: Basophils # (auto) 0.01 K/uL (0-0.2); Basophils % (auto) 0.1 %; Hematocrit (blood only) 43.4 % (37-47); Hemoglobin 14.4 g/dL (12.0-16.0); Immature Granulocytes # (auto) 0.03 K/uL (0.00-0.02); Immature Granulocytes % (auto) 0.3 %; Lymphocytes # (auto) 0.89 K/uL (1.2-3.4); Lymphocytes % (auto) 8.6 %; Mean Corpuscular Hgb Conc 33.2 g/dL (32-36); Mean Corpuscular Volume 85.4 fL (80-100); Mean Platelet Volume 9.5 fL (7.4-10.4); Monocytes # (auto) 0.75 K/uL (0.11-0.59); Monocytes % (auto) 7.3 %; Neutrophils # (auto) 8.66 K/uL (1.4-6.5); Neutrophils % (auto) 83.7 %; Platelet Count 183 K/uL (130-400); RDW Coefficient of Variation 14.4 % (11.5-14.5); RDW Standard Deviation 45.2 fL (36.4-46.3); Red Blood Count 5.08 M/uL (4.2-5.4); White Blood Count 10.34 K/uL (4.8-10.8)
[2019-03-30 10:10] LABS: INR 1.1 (0.9-1.1); Partial Thromboplastin Time 28.1 Seconds (21.0-31.0); Prothrombin Time 11.3 Seconds (9.0-12.0)
[2019-03-30 10:14] LABS: Albumin Level 3.7 gm/dl (3.4-5.0); BUN Creatinine Ratio 19.5 (10-20); Calcium 9.4 mg/dl (8.5-10.1); Creatinine Clr Calc Pharmacy 39.2 ml/min; Est GFR (African American) 52.9; Est GFR (Non-African American) 45.6; Magnesium 2.5 mg/dl (1.8-2.4); Potassium 3.8 mmol/L (3.5-5.1)
--- NOTE | 2019-03-30 10:28 | XRay Report ---
XR chest 1V portable CLINICAL HISTORY: 64 years-old Female presenting with Sepsis. TECHNIQUE: Portable upright AP view of the chest was obtained. COMPARISON: 08/02/2018. FINDINGS: The patient is slightly ROCHA rotated. Atherosclerosis of the aortic arch. Cardiac silhouette top sonali l in size. Bilateral hilar prominence likely relates to pulmonary vascular prominence. Bronchial wall cuffing. Interlobular septal thickening. Mild hyperinflation and heterogeneity of lung parenchyma. A dditionally, added density with hazy and reticular opacity at the right lung base. Minimal nodular an d bandlike opacity at the left lung base. No large effusion or pneumothorax. Degenerative changes of the thoracic spine. Chronic posttraumatic left humeral neck deformity. Upper abdomen normal. IMPRESSION: 1. Infiltrate at the right lung base concerning for pneumonia. Developing edema considered less like ly given the asymmetry. 2. Volume overload with congestive change. 3. Bilateral hilar prominence likely vascular in etiology or less likely lymphadenopathy. 4. Possible underlying chronic and/or obstructive lung disease. Electronically signed by: Marcial Matamoros M.D. 03/30/2019 10:26 AM
[2019-03-30 10:33] LABS: Base Excess VBG -1.1 mEq/L; pH VBG 7.35 (7.36-7.41)
[2019-03-30] MEDS ORDERED: PIPERACILL/TAZOBAC CONSULT ACTIVE PRN ×2 (10:33→13:16)
[2019-03-30] MEDS ORDERED: PIPERACILLIN/TAZOBACTAM 4.5 GM/120 ML BAG IV ONE (10:33)
[2019-03-30] MEDS ORDERED: LORazepam 0.5 MG/1 ML VIAL IV STA (10:44)
[2019-03-30 10:45] LABS: Albumin Globulin Ratio 0.9 (0.9-2); Bilirubin,Total 0.6 mg/dl (0.2-1); C Reactive Protein 19.8 mg/dl (0-0.29); Globulin 4.3 gm/dl (2.5-4.0); Troponin I 0.305 ng/ml (0-0.045)
--- NOTE | 2019-03-30 12:07 | History & Physical Report ---
Date of Service March 30, 2019 Assessment & Plan (1) Respiratory failure: (2) PNA (pneumonia): (3) Sepsis: Pt with hx MS, COPD, tobacco use presented to ER for fall and was found to be hypoxic with O2 sat in 60's on RA by EMS and was brought to ER. In ER T: 37.7, P: 106, R: 22, BP:135/89, 65% on RA. Was placed on bipap with P: 100, R:16, BP: 164/96, 97% on bipap WBC: 10, lactate: 4.7. Procalcitonin: 0.7, BNP: 6766. VBG: pH: 7.35, pCO2: 46, pO2: 32, HCO3: 25 CXR: Infiltrate at the right lung base concerning for pneumonia. Developing edema considered less likely given the asymmetry. Volume overload with congestive change. Bilateral hilar prominence likely vascular in etiology or less likely lymphadenopathy. Possible underlying chronic and/or obstructive lung disease. Sepsis as meets SIRS criteria with tachycardia, tachypnea, lactic acidosis and infiltrate on CXR. Community acquired pneumonia. -In ER given 2L NSS, hour long albuterol neb, Zosyn, Ativan 0.5mg IV -Blood cultures pending -Pending MRSA swab -Monitor lactate -Gentle IVF, with close monitoring of volume status -Zosyn -Duonebs -Continue bipap -Supplemental oxygen as needed -Solumedrol 40mg IV Daily -CTA chest pending to R/O PE -Pulmonology consult (4) Elevated troponin: Troponin: 0.3. EKG without acute changes. No CP reported. may be secondary to hypoxia -Resting echo, evaluate wall motion -Trend troponin -Will add CK to evaluate for rhabdomyolysis, unsure how long pt was lying on floor (5) Acute kidney injury: Cr: 1.26. Baseline Cr: ~0.7 It is reported pt not eating and drinking over past 24 hours -monitor renal functions -avoid nephrotoxic agents when possible (6) Elevated LFTs: Total bili:0.6, AST: 340, ALT: 241, Alk Phos:106 Denies abdominal pain. May be secondary to sepsis -Repeat LFTs in am (7) Hyperglycemia: Glucose: 214 -A1c in am (8) COPD (chronic obstructive pulmonary disease): Not on oxygen at home -continue Advair -Duonebs -Bipap, supplemental oxygen, solumedrol as above (9) Multiple sclerosis: (10) Restless leg syndrome: Hx MS, RLS, chronic right hemiparesis. Follows with Dr Alatorre -neurology -Currently will hold Zanaflex, Gabapenting, Amitriptyline, Oxycodone and reassess mental status and bipap status this afternoon -If no improvement or worsening mental status changes consider brain imaging (11) HTN (hypertension): Stable -Amlodipine held while npo, reassess and resume when able (12) Depression: (13) Anxiety: -Currently holding Doxepin, mirtazapine and reassess this afternoon/evening (14) Tobacco use: -Encourage smoking cessation -Nicotine patch DVT Prophylaxis -Heparin SQ Full Code as per discussion with pt and pt's Follows with Dr Chuck Smith for routine care Pt was seen and care coordinated with Dr Holley. See addendum History of Present Illness Chief Complaint: Fall, Hypoxia Primary Care Provider: Chuck Smith, Pt is 64 y/o F COPD not on oxygen, multiple sclerosis, depression, anxiety, insomnia, RLS, chronic right hemiparesis, tobacco use presented to ER for hypoxia. Some of history history obtained from patient and most of history from patient's . Patient's reports that he woke up at 7 AM today and found patient lying facedown on the floor near her bed. He states he tried to get her up into her wheelchair however patient felt limp and was not able to assist in transfer. He called EMS for lift assist. He notes that patient seemed confused and weak. EMS was able to get patient in chair and reports patient was leaning to left side and wheelchair and was weak and was unable to use her wheelchair. Initially patient refused EMS transport to hospital. Reports history of recurrent falls which occur with transferring to and from wheelchair. Patient wheelchair-bound secondary to MS. Patient states that she does not think that she hit her head. reports no noted loss of control of bowel or bladder. He thinks that she fell a little bit when trying to transfer from bed to wheelchair but is unsure. States that pt stayed in bed most of yesterday which is unusual and she didn't eat or drink. Today EMS found patient to be hypoxic at 65% on room air. reports chronic cough and does not think has had increased cough. Patient reports chills and she reports nonproductive cough. Denies N/V/D/C, VERA, CP, SOB, abdominal pain, extremity edema, rashes, urinary symptoms. Further ROS difficult to obtain secondary to pt being on bipap. Allergies Allergy/AdvReac Type Severity Reaction Status Date / Time No Known Allergies Allergy Unknown Verified 03/30/19 09:50 Home Medications Home Medications Medication Instructions Recorded Confirmed Type albuterol sulfate 2 puff INHALATION QID PRN 08/02/18 03/30/19 History amitriptyline 100 mg PO HS 08/02/18 03/30/19 History amlodipine 2.5 mg PO DAILY 08/02/18 03/30/19 History ergocalciferol (vitamin D2) 50,000 unit PO UD 08/02/18 03/30/19 History [Drisdol] gabapentin 3 cap PO HS 08/02/18 03/30/19 History ipratropium-albuterol 3 ml INHALATION QID PRN 08/02/18 03/30/19 History melatonin 10 mg PO HS 08/02/18 03/30/19 History tizanidine 4 mg PO UD 08/02/18 03/30/19 History clonazepam 2 mg PO DIRECTED 03/30/19 03/30/19 History doxepin [Silenor] 6 mg PO HS 03/30/19 03/30/19 History fluticasone propion-salmeterol 1 inh INHALATION BID 03/30/19 03/30/19 History mirtazapine 30 mg PO HS 03/30/19 03/30/19 History oxycodone 10 mg PO TID PRN 03/30/19 03/30/19 History Past Med/Surg History Medical History Hemiparesis (Chronic) Tobacco use (Chronic) Multiple sclerosis (Chronic) Anxiety (Chronic) Persistent insomnia (Chronic) COPD (chronic obstructive pulmonary disease) (Chronic) Depression (Chronic) Dyslipidemia (Chronic) HTN (hypertension) (Chronic) Restless leg syndrome (Chronic) Left patella fracture (Resolved) "requiring internal fixation repair by Dr. King 2001" Ambulatory dysfunction (Chronic) Closed fracture of right tibia and fibula (Resolved) Surgical History History of total right hip arthroplasty (Chronic) "secondary to R hip fracture; performed by Dr. Murrieta 11/27/12 " Family History Father Heart disease Social History Preferred Language: Kiswahili Communication Ability: Effective Visual Impairment: No Limitations Hearing Ability: Normal Quilt Stuffer Required: No Beliefs That Will Affect Care: None marital status: Current Living Situation: Spouse Other Information That Helps Us Care for You: No Feels Safe at Home: Yes Safety Concerns: Feels Safe At This Time Smoking Status: Current every day smoker Tobacco Type: cigarettes Cigarettes Per Day: 10 Do You Dip or Chew Tobacco: No Second Hand Exposure: No Tobacco Cessation Education Requested by Patient: No Hx Alcohol Use: No Hx Substance Use: No Review of Systems Review of Systems: Further ROS unable to be obtained secondary to pt on bipap and some confusion Physical Exam Physical Exam: General: On bipap, pt appears uncomfortable with bipap mask is trying to readjust, WDWN Head: normocephalic, atraumatic Eyes: PERRL, EOM's intact, conjunctiva non-injected, anicteric ENT: normal inspection external ears, nose, mucous membranes dry Neck: supple, trachea midline, non-tender Lungs: On bipap with respirations 22, 96% O2 sat, no retractions, lungs diminished throughout CV: regular rhythm, tachycardic 102, no murmur, no pretibial edema Abd: normal BS, soft, non-tender Ext: no cyanosis, no calf tenderness Neuro: Alert, oriented to person, right arm and leg weakness (chronic), able to move left arm and left leg, some agitation with bipap mask Skin: warm, dry Results & Data Vital Signs (Past 12 Hours) Vital Signs Temp Pulse Pulse Resp BP BP Pulse Ox 03/30/19 11:11 100 H 22 154/81 H 98 03/30/19 10:30 100 H 16 164/96 H 97 03/30/19 09:45 100 H 22 96 03/30/19 09:42 104 H 32 H 93 03/30/19 09:40 70 L 03/30/19 09:39 103 H 37 H 87 L 03/30/19 09:30 66 L 03/30/19 09:24 37.7 C H 106 H 22 135/89 65 L Laboratory Results Short CBC 03/30/19 Range/Units 09:44 WBC 10.34 (4.8-10.8) K/uL Hgb 14.4 (12.0-16.0) g/dL Hct 43.4 (37-47) % Plt Count 183 (130-400) K/uL BMP 03/30/19 09:44 Sodium 139 Potassium 3.8 Chloride 103 Carbon Dioxide 25 BUN 25 H Creatinine 1.26 H Glucose 214 H Calcium 9.4 Cardiac Enzymes 03/30/19 Range/Units 09:44 Troponin I 0.305 H* (0-0.045) ng/ml Liver Function 03/30/19 Range/Units 09:44 Total Bilirubin 0.6 (0.2-1) mg/dl AST 340 H (15-37) U/L ALT 241 H (12-78) U/L Alkaline Phosphatase 106 (45-117) U/L Albumin 3.7 (3.4-5.0) gm/dl Urine 03/30/19 Range/Units 12:00 Urine Color Dark Yellow Urine Appearance Clear (Clear) Urine pH 5.0 (4.5-7.5) Ur Specific [place] 1.025 (1.000-1.030) Urine Protein Trace H (Negative) Urine Glucose (UA) Negative (Negative) Diagnostic Findings CXR: IMPRESSION: 1. Infiltrate at the right lung base concerning for pneumonia. Developing edema considered less likely given the asymmetry. 2. Volume overload with congestive change. 3. Bilateral hilar prominence likely vascular in etiology or less likely lymphadenopathy. 4. Possible underlying chronic and/or obstructive lung disease. ECG Rate (beats per minute): 0.6 Rhythm: sinus tachycardia Supervising Physician Co-Signing Physician Notes Patient is a 64-year-old female with history of multiple sclerosis, hypertension, anxiety depression, tobacco use disorder and other problems presents with history of unwitnessed fall, altered mental status, nonproductive cough, generalized weakness, very poor appetite since yesterday, and she was noted to be lying in bed all day yesterday. Please review HPI for complete details of presentation. Patient had multiple falls in the past as per family. No known history of head trauma, fever, chills, chest pain. she was noticed to be hypoxic at 65% on room air by EMS. Patient was placed on BiPAP while in ED secondary to significant hypoxia. Labs suggestive of ANTONIA, transaminitis, mild troponin elevation likely due to demand ischemia, lactic acidosis. CTA showed no PE, but showed multifocal groundglass infiltrates suggestive of multifocal pneumonia, significant volume loss suggestive of mucous plugging. On exam patient is moderately built and nourished, mild respiratory distress, normocephalic atraumatic, lungs-significantly decreased breath sounds, clear to auscultation, S1-S2, no murmur, tachycardia, abdomen soft nontender, chronic right-sided weakness due to multiple sclerosis RLE> RUE, no pedal edema, alert awake and oriented. Patient is admitted for management of acute respiratory failure secondary to multifocal pneumonia, sepsis. Agree with IV fluids, Zosyn, respiratory support with BiPAP, will consult pulmonary for possible bronchoscopy due to mucous plugging. Check ECHO, trend troponin, recheck LFTs in AM. We will hold all sedating meds for now and resume as able. I personally reviewed the record. Patient is interviewed and examined at bedside. Patient's care is coordinated with Faith Tucker PA-C. Please refer to the documentation above for details of patient's presentation and for discussion of other issues. (1) Respiratory failure Chronicity: unspecified Respiratory failure complication: hypoxia Qualified Code(s): J96.91 - Respiratory failure, unspecified with hypoxia (2) PNA (pneumonia) Laterality: right Lung location: lower lobe of lung Pneumonia type: due to unspecified organism Qualified Code(s): J18.1 - Lobar pneumonia, unspecified organism
[2019-03-30 12:17] LABS: Appearance Urine Clear (Clear); Bacteria Urine Automated Negative (Negative); Bilirubin Urine Negative (Negative); Blood Urine Negative (Negative); Color Urine Dark Yellow; Epithelial Cell Urine Auto 0-5 /lpf (0-5); Glucose Urine UA Negative (Negative); Ketones Urine Trace (Negative); Leukocyte Esterase Urine Negative (Negative); Nitrite Urine Negative (Negative); Protein Urine Trace (Negative); RBC Urine Automated 0-4 /hpf (0-4); Specific Gravity Urine 1.025 (1.000-1.030); Urobilinogen Urine Negative (Negative); WBC Urine Automated 0 /hpf (0-5)
[2019-03-30] MEDS ORDERED: OPTIRAY 320 125ml IV PRN (12:35)
--- NOTE | 2019-03-30 12:53 | CT Scan Report ---
CT angio chest PE protocol CLINICAL HISTORY: 64 years-old Female presenting with shortness of breath, clinical concern for pulmo nary embolus, sepsis. TECHNIQUE: Multidetector CT angiography of the chest was performed after administration of intravenou s contrast. 3-D volumetric and/or maximum intensity projection (MIP) images were subsequently reconst ructed for review. IV contrast: 93 mL of Optiray 320. One or more dose lowering techniques were used consistent with the principles of ALARA (as low as reasonably achievable), including automatic exposu re control, mA or kV adjustment to individual patient size, and/or use of iterative reconstruction. COMPARISON: 02/27/2016. CT DOSE (mGy.cm): The estimated cumulative dose is 437.77 mGy.cm. FINDINGS: Ballpoint Pen Cartridge Tester topogram: Unremarkable. Pulmonary vasculature: The study is suboptimal for the assessment of the pulmonary vascular tree secondary to respiratory mo tion artifact. Allowing for limited image quality, no central filling defect to suggest pulmonary emb olus. Apparent filling defect in the right lower lobe is most likely within a pulmonary vein as this does not appear to connect to the pulmonary arterial tree. The evaluation is severely degraded in thi s region by respiratory motion artifact. Main pulmonary artery is not enlarged. No flattening of the interventricular septum. No intracardiac filling defect. No reflux of contrast into the hepatic veins . Remaining chest: Soft tissues: Grossly normal thyroid. Mild infiltration is suggested in the right base of the neck, n onspecific. No axillary, supraclavicular, mediastinal, or hilar lymphadenopathy. Atherosclerosis of t he aorta. Normal heart size. Coronary artery calcification. No pericardial or pleural effusion. Upper abdomen normal. Lungs and airways: No pneumothorax. Central airways patent the extensive mucous plugging is suggested and subsegmental bronchi of the lower lobes. Pulmonary arteries are not significantly enlarged relat gely to adjacent bronchi. No interlobular septal thickening. Patchy groundglass opacities throughout t he upper lobes. Extensive consolidation volume loss in the lower lobes with mucous plugging. Musculoskeletal: Degenerative changes of the spine. Advanced degenerative changes of the left glenohu meral joint. Moderate compression deformities of T12 and L1. This was present at T12 on the prior exa m though new at L1. IMPRESSION: 1. Allowing for suboptimal image quality, no evidence of pulmonary embolus. 2. Multifocal groundglass infiltrates with an upper lobe predominance consistent with multifocal pne umonia. 3. Significant lower lobe volume loss with mucous plugging. 4. Moderate compression deformities at T12 and L1. The compression deformity at L1 is new since 2016 . Correlate with point tenderness to assess for acuity. Electronically signed by: Marcial Matamoros M.D. 03/30/2019 12:51 PM
[2019-03-30] MEDS ORDERED: ENOXAPARIN INJ 40 MG/0.4 ML SYR SQ SCH (13:03)
[2019-03-30] MEDS ORDERED: SODIUM CHLORIDE 0.9% 1000ML 1,000 ML IV SCH ×2 (13:03→23:00)
[2019-03-30] MEDS: HEPARIN SOD 5,000 UNIT/0.5 ML VIAL SQ SCH ×2 (14:30→22:05)
[2019-03-30] MEDS: methylPREDNISolone 40 MG in SYRINGE 0 ML IV SCH (14:31)
[2019-03-30] MEDS: ALBUT/IPRATROP 3MG/0.5MG NEB 3 ML VIAL NEB SCH ×4 (14:44→23:15)
[2019-03-30] MEDS: PIPERACILLIN/TAZOBACTAM 3.375 GM in DEXTROSE 5% 100 ML IV SCH ×2 (16:50→23:07)
--- NOTE | 2019-03-30 18:00 | Pulmonary Consultation ---
Date of Consultation March 30, 2019 Assessment & Plan (1) PNA (pneumonia): Continue Zosyn Continue oxygen and evaluate oxygen needs prior to discharge Laterality: right Lung location: lower lobe of lung Pneumonia type: due to unspecified organism Qualified Code(s): J18.1 - Lobar pneumonia, unspecified organism (2) COPD exacerbation: Continue antibiotics, bronchodilators, inhaled and systemic steroid's and oxygen. No indication for bronchoscopy at this time (3) Respiratory failure with hypoxia: Continue supplemental oxygen. Make BiPAP PRN Evaluate oxygen needs prior to discharge Smoking cessation History of Present Illness Reason for Consultation: Pneumonia Requesting Physician: Dr. Wolfe Attending Physician: Kaylah Wolfe History of Present Illness Patient is a 64-year-old woman with a history of COPD and ongoing tobacco use not on home oxygen who is wheelchair-bound due to multiple sclerosis. Patient fell out of her wheelchair this morning and was and an ambulance was summoned. She was noted to be hypoxic on room air and was admitted to the hospital. She has been started on Zosyn Solu-Medrol duo nebs and Advair. She was placed on BiPAP empirically; venous blood gas did not suggest acute CO2 retention. She currently states that she is breathing more comfortably than on admission and so we have placed her on nasal oxygen at 3 L/min and she does not appear to be in any distress. CT scan of the chest showed some right lower lobe infiltrate and atelectasis and scattered groundglass infiltrates bilaterally. Allergies Allergy/AdvReac Type Severity Reaction Status Date / Time No Known Allergies Allergy Unknown Verified 03/30/19 09:50 Home Medications Home Medications Medication Instructions Recorded Confirmed Type albuterol sulfate 2 puff INHALATION QID PRN 08/02/18 03/30/19 History amitriptyline 100 mg PO HS 08/02/18 03/30/19 History amlodipine 2.5 mg PO DAILY 08/02/18 03/30/19 History ergocalciferol (vitamin D2) 50,000 unit PO UD 08/02/18 03/30/19 History [Drisdol] gabapentin 3 cap PO HS 08/02/18 03/30/19 History ipratropium-albuterol 3 ml INHALATION QID PRN 08/02/18 03/30/19 History melatonin 10 mg PO HS 08/02/18 03/30/19 History tizanidine 4 mg PO UD 08/02/18 03/30/19 History clonazepam 2 mg PO DIRECTED 03/30/19 03/30/19 History doxepin [Silenor] 6 mg PO HS 03/30/19 03/30/19 History fluticasone propion-salmeterol 1 inh INHALATION BID 03/30/19 03/30/19 History mirtazapine 30 mg PO HS 03/30/19 03/30/19 History oxycodone 10 mg PO TID PRN 03/30/19 03/30/19 History Patient History Medical History Hemiparesis (Chronic) Tobacco use (Chronic) Multiple sclerosis (Chronic) Anxiety (Chronic) Persistent insomnia (Chronic) COPD (chronic obstructive pulmonary disease) (Chronic) Depression (Chronic) Dyslipidemia (Chronic) HTN (hypertension) (Chronic) Restless leg syndrome (Chronic) Left patella fracture (Resolved) "requiring internal fixation repair by Dr. King 2001" Ambulatory dysfunction (Chronic) Closed fracture of right tibia and fibula (Resolved) Surgical History History of total right hip arthroplasty (Chronic) "secondary to R hip fracture; performed by Dr. Murrieta 11/27/12 " Family History Father Heart disease Social History Preferred Language: Kyrgyz Communication Ability: Effective Visual Impairment: No Limitations Hearing Ability: Normal Staff Consultant Required: No Beliefs That Will Affect Care: None marital status: Current Living Situation: Spouse Other Information That Helps Us Care for You: No Feels Safe at Home: Yes Safety Concerns: Feels Safe At This Time Smoking Status: Current every day smoker Tobacco Type: cigarettes Cigarettes Per Day: 10 Do You Dip or Chew Tobacco: No Second Hand Exposure: No Tobacco Cessation Education Requested by Patient: No Hx Alcohol Use: No Hx Substance Use: No Review of Systems Review of Systems: All systems reviewed & are unremarkable except as noted in HPI & below Physical Exam Physical Exam: Patient awake alert in no acute distress Head normocephalic atraumatic Estella EOMI normal mucous membranes Neck supple no JVD adenopathy or bruits Chest crackles and rhonchi right base, no wheezing Cardiac regular rhythm no murmurs rubs or gallops Abdomen soft nontender normoactive bowel sounds Extremities no cyanosis clubbing or edema Results & Data Vital Signs (Past 12 Hours) Vital Signs Temp Pulse Pulse Resp BP BP BP 03/30/19 16:00 101 H 03/30/19 15:32 100 H 100 H 34 H 03/30/19 15:05 37.8 C H 104 H 26 H 169/100 H 03/30/19 13:03 37.1 C 101 H 102 H 20 161/94 H 03/30/19 11:11 100 H 22 154/81 H 03/30/19 10:30 100 H 16 164/96 H 03/30/19 09:45 100 H 22 03/30/19 09:42 104 H 32 H 03/30/19 09:40 03/30/19 09:39 103 H 37 H 03/30/19 09:30 03/30/19 09:24 37.7 C H 106 H 22 135/89 Pulse Ox 03/30/19 16:00 03/30/19 15:32 100 03/30/19 15:05 99 03/30/19 13:03 100 03/30/19 11:11 98 03/30/19 10:30 97 03/30/19 09:45 96 03/30/19 09:42 93 03/30/19 09:40 70 L 03/30/19 09:39 87 L 03/30/19 09:30 66 L 03/30/19 09:24 65 L Laboratory Results 03/30/19 03/30/19 03/30/19 Range/Units 14:09 14:04 13:11 WBC (4.8-10.8) K/uL RBC (4.2-5.4) M/uL Hgb (12.0-16.0) g/dL Hct (37-47) % MCV (80-100) fL MCH (25-34) pg MCHC (32-36) g/dL RDW Std Deviation (36.4-46.3) fL RDW Coeff of Marilia (11.5-14.5) % Plt Count (130-400) K/uL MPV (7.4-10.4) fL Immature Gran % (Auto) % Neut % (Auto) % Lymph % (Auto) % Winkler % (Auto) % Eos % (Auto) % Baso % (Auto) % Immature Gran # (Auto) (0.00-0.02) K/uL Neut # (Auto) (1.4-6.5) K/uL Lymph # (Auto) (1.2-3.4) K/uL Winkler # (Auto) (0.11-0.59) K/uL Eos # (Auto) (0-0.5) K/uL Baso # (Auto) (0-0.2) K/uL ESR (0-21) mm/hr PT (9.0-12.0) Seconds INR (0.9-1.1) APTT (21.0-31.0) Seconds PTT Ratio VBG pH (7.36-7.41) VBG pCO2 (38-50) mmHg VBG pO2 mmHg VBG HCO3 mmol/L VBG O2 Saturation % VBG Base Excess mEq/L Barometric Pressure mm/Hg Sodium (136-145) mmol/L Potassium (3.5-5.1) mmol/L Chloride (98-107) mmol/L Carbon Dioxide (21-32) mmol/L Anion Gap (3-11) BUN (7-18) mg/dl Creatinine (0.6-1.2) mg/dl Est Cr Clr Drug Dosing ml/min Est GFR ( Amer) Est GFR (Non-Af Amer) BUN/Creatinine Ratio (10-20) Glucose (70-99) mg/dl Lactate 3.2 H* (0.4-2.0) mmol/L Calcium (8.5-10.1) mg/dl Magnesium (1.8-2.4) mg/dl Total Bilirubin (0.2-1) mg/dl AST (15-37) U/L ALT (12-78) U/L Alkaline Phosphatase (45-117) U/L Total Creatine Kinase 1371 H (26-192) U/L Troponin I 0.260 H* (0-0.045) ng/ml C-Reactive Protein (0-0.29) mg/dl NT-Pro-B Natriuret Pep (0-900) pg/ml Total Protein (6.4-8.2) gm/dl Albumin (3.4-5.0) gm/dl Globulin (2.5-4.0) gm/dl Albumin/Globulin Ratio (0.9-2) Procalcitonin (0-0.5) ng/ml Urine Color Urine Appearance (Clear) Urine pH (4.5-7.5) Ur Specific Granger (1.000-1.030) Urine Protein (Negative) Urine Glucose (UA) (Negative) Urine Ketones (Negative) Urine Blood (Negative) Urine Nitrite (Negative) Urine Bilirubin (Negative) Urine Urobilinogen (Negative) Ur Leukocyte Esterase (Negative) Urine WBC (Auto) (0-5) /hpf Urine RBC (Auto) (0-4) /hpf U Hyaline Cast (Auto) (0-5) /lpf U Epithel Cells (Auto) (0-5) /lpf Urine Bacteria (Auto) (Negative) 03/30/19 03/30/19 03/30/19 Range/Units 12:00 10:14 09:44 WBC (4.8-10.8) K/uL RBC (4.2-5.4) M/uL Hgb (12.0-16.0) g/dL Hct (37-47) % MCV (80-100) fL MCH (25-34) pg MCHC (32-36) g/dL RDW Std Deviation (36.4-46.3) fL RDW Coeff of Marilia (11.5-14.5) % Plt Count (130-400) K/uL MPV (7.4-10.4) fL Immature Gran % (Auto) % Neut % (Auto) % Lymph % (Auto) % Winkler % (Auto) % Eos % (Auto) % Baso % (Auto) % Immature Gran # (Auto) (0.00-0.02) K/uL Neut # (Auto) (1.4-6.5) K/uL Lymph # (Auto) (1.2-3.4) K/uL Winkler # (Auto) (0.11-0.59) K/uL Eos # (Auto) (0-0.5) K/uL Baso # (Auto) (0-0.2) K/uL ESR (0-21) mm/hr PT (9.0-12.0) Seconds INR (0.9-1.1) APTT (21.0-31.0) Seconds PTT Ratio VBG pH 7.35 L (7.36-7.41) VBG pCO2 46 (38-50) mmHg VBG pO2 32 mmHg VBG HCO3 25 mmol/L VBG O2 Saturation 61.0 % VBG Base Excess -1.1 mEq/L Barometric Pressure 733.0 mm/Hg Sodium (136-145) mmol/L Potassium (3.5-5.1) mmol/L Chloride (98-107) mmol/L Carbon Dioxide (21-32) mmol/L Anion Gap (3-11) BUN (7-18) mg/dl Creatinine (0.6-1.2) mg/dl Est Cr Clr Drug Dosing ml/min Est GFR ( Amer) Est GFR (Non-Af Amer) BUN/Creatinine Ratio (10-20) Glucose (70-99) mg/dl Lactate (0.4-2.0) mmol/L Calcium (8.5-10.1) mg/dl Magnesium (1.8-2.4) mg/dl Total Bilirubin (0.2-1) mg/dl AST (15-37) U/L ALT (12-78) U/L Alkaline Phosphatase (45-117) U/L Total Creatine Kinase (26-192) U/L Troponin I (0-0.045) ng/ml C-Reactive Protein (0-0.29) mg/dl NT-Pro-B Natriuret Pep (0-900) pg/ml Total Protein (6.4-8.2) gm/dl Albumin (3.4-5.0) gm/dl Globulin (2.5-4.0) gm/dl Albumin/Globulin Ratio (0.9-2) Procalcitonin 0.75 H (0-0.5) ng/ml Urine Color Dark Yellow Urine Appearance Clear (Clear) Urine pH 5.0 (4.5-7.5) Ur Specific Granger 1.025 (1.000-1.030) Urine Protein Trace H (Negative) Urine Glucose (UA) Negative (Negative) Urine Ketones Trace H (Negative) Urine Blood Negative (Negative) Urine Nitrite Negative (Negative) Urine Bilirubin Negative (Negative) Urine Urobilinogen Negative (Negative) Ur Leukocyte Esterase Negative (Negative) Urine WBC (Auto) 0 (0-5) /hpf Urine RBC (Auto) 0-4 (0-4) /hpf U Hyaline Cast (Auto) 1-5 (0-5) /lpf U Epithel Cells (Auto) 0-5 (0-5) /lpf Urine Bacteria (Auto) Negative (Negative) 03/30/19 03/30/19 03/30/19 Range/Units 09:44 09:44 09:44 WBC (4.8-10.8) K/uL RBC (4.2-5.4) M/uL Hgb (12.0-16.0) g/dL Hct (37-47) % MCV (80-100) fL MCH (25-34) pg MCHC (32-36) g/dL RDW Std Deviation (36.4-46.3) fL RDW Coeff of Marilia (11.5-14.5) % Plt Count (130-400) K/uL MPV (7.4-10.4) fL Immature Gran % (Auto) % Neut % (Auto) % Lymph % (Auto) % Winkler % (Auto) % Eos % (Auto) % Baso % (Auto) % Immature Gran # (Auto) (0.00-0.02) K/uL Neut # (Auto) (1.4-6.5) K/uL Lymph # (Auto) (1.2-3.4) K/uL Winkler # (Auto) (0.11-0.59) K/uL Eos # (Auto) (0-0.5) K/uL Baso # (Auto) (0-0.2) K/uL ESR (0-21) mm/hr PT 11.3 (9.0-12.0) Seconds INR 1.1 (0.9-1.1) APTT 28.1 (21.0-31.0) Seconds PTT Ratio 1.0 VBG pH (7.36-7.41) VBG pCO2 (38-50) mmHg VBG pO2 mmHg VBG HCO3 mmol/L VBG O2 Saturation % VBG Base Excess mEq/L Barometric Pressure mm/Hg Sodium 139 (136-145) mmol/L Potassium 3.8 (3.5-5.1) mmol/L Chloride 103 (98-107) mmol/L Carbon Dioxide 25 (21-32) mmol/L Anion Gap 12.0 H (3-11) BUN 25 H (7-18) mg/dl Creatinine 1.26 H (0.6-1.2) mg/dl Est Cr Clr Drug Dosing 39.2 ml/min Est GFR ( Amer) 52.9 Est GFR (Non-Af Amer) 45.6 BUN/Creatinine Ratio 19.5 (10-20) Glucose 214 H (70-99) mg/dl Lactate 4.7 H* (0.4-2.0) mmol/L Calcium 9.4 (8.5-10.1) mg/dl Magnesium 2.5 H (1.8-2.4) mg/dl Total Bilirubin 0.6 (0.2-1) mg/dl AST 340 H (15-37) U/L ALT 241 H (12-78) U/L Alkaline Phosphatase 106 (45-117) U/L Total Creatine Kinase (26-192) U/L Troponin I 0.305 H* (0-0.045) ng/ml C-Reactive Protein 19.80 H (0-0.29) mg/dl NT-Pro-B Natriuret Pep 6766 H (0-900) pg/ml Total Protein 8.0 (6.4-8.2) gm/dl Albumin 3.7 (3.4-5.0) gm/dl Globulin 4.3 H (2.5-4.0) gm/dl Albumin/Globulin Ratio 0.9 (0.9-2) Procalcitonin (0-0.5) ng/ml Urine Color Urine Appearance (Clear) Urine pH (4.5-7.5) Ur Specific Granger (1.000-1.030) Urine Protein (Negative) Urine Glucose (UA) (Negative) Urine Ketones (Negative) Urine Blood (Negative) Urine Nitrite (Negative) Urine Bilirubin (Negative) Urine Urobilinogen (Negative) Ur Leukocyte Esterase (Negative) Urine WBC (Auto) (0-5) /hpf Urine RBC (Auto) (0-4) /hpf U Hyaline Cast (Auto) (0-5) /lpf U Epithel Cells (Auto) (0-5) /lpf Urine Bacteria (Auto) (Negative) 03/30/19 03/30/19 Range/Units 09:44 09:44 WBC 10.34 (4.8-10.8) K/uL RBC 5.08 (4.2-5.4) M/uL Hgb 14.4 (12.0-16.0) g/dL Hct 43.4 (37-47) % MCV 85.4 (80-100) fL MCH 28.3 (25-34) pg MCHC 33.2 (32-36) g/dL RDW Std Deviation 45.2 (36.4-46.3) fL RDW Coeff of Marilia 14.4 (11.5-14.5) % Plt Count 183 (130-400) K/uL MPV 9.5 (7.4-10.4) fL Immature Gran % (Auto) 0.3 % Neut % (Auto) 83.7 % Lymph % (Auto) 8.6 % Winkler % (Auto) 7.3 % Eos % (Auto) 0.0 % Baso % (Auto) 0.1 % Immature Gran # (Auto) 0.03 H (0.00-0.02) K/uL Neut # (Auto) 8.66 H (1.4-6.5) K/uL Lymph # (Auto) 0.89 L (1.2-3.4) K/uL Winkler # (Auto) 0.75 H (0.11-0.59) K/uL Eos # (Auto) 0.00 (0-0.5) K/uL Baso # (Auto) 0.01 (0-0.2) K/uL ESR 40 H (0-21) mm/hr PT (9.0-12.0) Seconds INR (0.9-1.1) APTT (21.0-31.0) Seconds PTT Ratio VBG pH (7.36-7.41) VBG pCO2 (38-50) mmHg VBG pO2 mmHg VBG HCO3 mmol/L VBG O2 Saturation % VBG Base Excess mEq/L Barometric Pressure mm/Hg Sodium (136-145) mmol/L Potassium (3.5-5.1) mmol/L Chloride (98-107) mmol/L Carbon Dioxide (21-32) mmol/L Anion Gap (3-11) BUN (7-18) mg/dl Creatinine (0.6-1.2) mg/dl Est Cr Clr Drug Dosing ml/min Est GFR ( Amer) Est GFR (Non-Af Amer) BUN/Creatinine Ratio (10-20) Glucose (70-99) mg/dl Lactate (0.4-2.0) mmol/L Calcium (8.5-10.1) mg/dl Magnesium (1.8-2.4) mg/dl Total Bilirubin (0.2-1) mg/dl AST (15-37) U/L ALT (12-78) U/L Alkaline Phosphatase (45-117) U/L Total Creatine Kinase (26-192) U/L Troponin I (0-0.045) ng/ml C-Reactive Protein (0-0.29) mg/dl NT-Pro-B Natriuret Pep (0-900) pg/ml Total Protein (6.4-8.2) gm/dl Albumin (3.4-5.0) gm/dl Globulin (2.5-4.0) gm/dl Albumin/Globulin Ratio (0.9-2) Procalcitonin (0-0.5) ng/ml Urine Color Urine Appearance (Clear) Urine pH (4.5-7.5) Ur Specific [place] (1.000-1.030) Urine Protein (Negative) Urine Glucose (UA) (Negative) Urine Ketones (Negative) Urine Blood (Negative) Urine Nitrite (Negative) Urine Bilirubin (Negative) Urine Urobilinogen (Negative) Ur Leukocyte Esterase (Negative) Urine WBC (Auto) (0-5) /hpf Urine RBC (Auto) (0-4) /hpf U Hyaline Cast (Auto) (0-5) /lpf U Epithel Cells (Auto) (0-5) /lpf Urine Bacteria (Auto) (Negative) Medications Administered Home Medications Medication Instructions Recorded Confirmed Last Taken albuterol sulfate 2 puff INHALATION QID PRN 08/02/18 03/30/19 Unknown amitriptyline 100 mg PO HS 08/02/18 03/30/19 Unknown amlodipine 2.5 mg PO DAILY 08/02/18 03/30/19 Unknown ergocalciferol (vitamin D2) 50,000 unit PO UD 08/02/18 03/30/19 Unknown [Drisdol] gabapentin 3 cap PO HS 08/02/18 03/30/19 Unknown ipratropium-albuterol 3 ml INHALATION QID PRN 08/02/18 03/30/19 Unknown melatonin 10 mg PO HS 08/02/18 03/30/19 Unknown tizanidine 4 mg PO UD 08/02/18 03/30/19 Unknown clonazepam 2 mg PO DIRECTED 03/30/19 03/30/19 Unknown doxepin [Silenor] 6 mg PO HS 03/30/19 03/30/19 Unknown fluticasone propion-salmeterol 1 inh INHALATION BID 03/30/19 03/30/19 Unknown mirtazapine 30 mg PO HS 03/30/19 03/30/19 Unknown oxycodone 10 mg PO TID PRN 03/30/19 03/30/19 Unknown Active Medications Generic Name Dose Route Start Last Admin Trade Name Freq PRN Reason Stop Dose Admin Albuterol 3 ml 03/30/19 13:03 03/30/19 15:28 Duoneb NEB 04/29/19 13:02 3 ml Q4R HALINA Administration Heparin Sodium (Porcine) 5,000 units 03/30/19 14:00 03/30/19 14:30 Heparin Sodium (Porcine) SQ 04/29/19 13:59 5,000 units Q8 HALINA Administration Sodium Chloride 1,000 mls @ 100 mls/hr 03/30/19 13:03 03/30/19 14:31 Nss 1000ml IV 03/30/19 23:02 100 mls/hr .Q10H HALINA Administration Methylprednisolone 40 mg/ 0.64 mls @ 1.5 mls/min 03/30/19 13:30 03/30/19 14:31 Syringe IV 04/29/19 13:29 1.5 mls/min DAILY HALINA Administration Piperacillin Sod/Tazobactam 115 mls @ 28.75 mls/hr 03/30/19 16:00 03/30/19 16:50 Sod 3.375 gm/ Dextrose IV 04/06/19 15:59 28.8 mls/hr Q8H HALINA Administration Protocol
[2019-03-30] MEDS: NICOTINE 14 MG/24 HR PATCH TD SCH (18:33)
[2019-03-30] MEDS ORDERED: clonazePAM 1 MG TAB PO ONE (20:56)
[2019-03-30] MEDS ORDERED: TIZANIDINE HCL 4 MG TABLET PO PRN ×2 (21:10→21:11)
[2019-03-30] MEDS: OXYCODONE HCL IR 5 MG TAB (IMMEDIATE RELEASE) PO PRN (22:02)
[2019-03-30] MEDS: FLUTICASONE/SALMETEROL 250/50 (ADVAIR) 14 PUFF/1 INHALER INH SCH (22:03)
[2019-03-30] MEDS: GABAPENTIN 300 MG CAP PO SCH (22:03)
[2019-03-30] MEDS: SODIUM CHLORIDE 0.9% 1000ML 1,000 ML IV SCH (22:04)
[2019-03-31] MEDS: ALBUT/IPRATROP 3MG/0.5MG NEB 3 ML VIAL NEB SCH ×6 (03:49→23:28)
[2019-03-31 06:35] LABS: Basophils # (auto) 0.01 K/uL (0-0.2); Basophils % (auto) 0.1 %; Hematocrit (blood only) 35.1 % (37-47); Hemoglobin 11.9 g/dL (12.0-16.0); Immature Granulocytes # (auto) 0.04 K/uL (0.00-0.02); Immature Granulocytes % (auto) 0.4 %; Lymphocytes # (auto) 0.77 K/uL (1.2-3.4); Lymphocytes % (auto) 8.1 %; Mean Corpuscular Hgb Conc 33.9 g/dL (32-36); Mean Corpuscular Volume 84.2 fL (80-100); Mean Platelet Volume 9.2 fL (7.4-10.4); Monocytes # (auto) 0.52 K/uL (0.11-0.59); Monocytes % (auto) 5.5 %; Neutrophils # (auto) 8.11 K/uL (1.4-6.5); Neutrophils % (auto) 85.9 %; Nucleated RBC # (auto) 0.02 K/uL (0-0); Nucleated RBC % (auto) 0.2 %; Platelet Count 144 K/uL (130-400); RDW Coefficient of Variation 14.3 % (11.5-14.5); RDW Standard Deviation 44.2 fL (36.4-46.3); Red Blood Count 4.17 M/uL (4.2-5.4); White Blood Count 9.45 K/uL (4.8-10.8)
[2019-03-31] MEDS: HEPARIN SOD 5,000 UNIT/0.5 ML VIAL SQ SCH ×3 (06:42→20:08)
[2019-03-31] MEDS: SODIUM CHLORIDE 0.9% 1000ML 1,000 ML IV SCH (06:48)
[2019-03-31 07:18] LABS: Albumin Globulin Ratio 0.7 (0.9-2); Albumin Level 2.6 gm/dl (3.4-5.0); BUN Creatinine Ratio 18.5 (10-20); Bilirubin Direct 0.1 mg/dl (0-0.2); Bilirubin,Total 0.5 mg/dl (0.2-1); Est GFR (African American) 90.2; Est GFR (Non-African American) 77.8; Globulin 3.7 gm/dl (2.5-4.0); Potassium 3.4 mmol/L (3.5-5.1); Total Protein 6.3 gm/dl (6.4-8.2)
[2019-03-31 07:27] LABS: Estimated Average Glucose 157 mg/dl; Hemoglobin A1C 7.1 % (4.5-5.6)
[2019-03-31] MEDS: PIPERACILLIN/TAZOBACTAM 3.375 GM in DEXTROSE 5% 100 ML IV SCH ×3 (08:12→22:18)
[2019-03-31] MEDS: methylPREDNISolone 40 MG in SYRINGE 0 ML IV SCH (08:12)
[2019-03-31] MEDS: FLUTICASONE/SALMETEROL 250/50 (ADVAIR) 14 PUFF/1 INHALER INH SCH ×2 (08:12→20:06)
[2019-03-31] MEDS: AMLODIPINE BESYLATE 5 MG TAB PO SCH (08:13)
[2019-03-31] MEDS: NICOTINE 14 MG/24 HR PATCH TD SCH (08:13)
--- NOTE | 2019-03-31 08:19 | Hospitalist Progress Note ---
Date of Service March 31, 2019 Assessment & Plan (1) Respiratory failure: (2) PNA (pneumonia): (3) Sepsis: Pt with hx MS, COPD, tobacco use presented to ER for fall and was found to be hypoxic with O2 sat in 60's on RA by EMS and was brought to ER. Sepsis as met SIRS criteria with tachycardia, tachypnea, lactic acidosis and infiltrate on CXR. Community acquired pneumonia. -S/P BIPAP in ER--> Now on 5 L oxygen--> wean as tolerated -Afebrile, no leucocytosis, lactic acid ordered -Duonebs QID -IV Fluids --> Ok to discontinue -IV Zosyn - Day 3 -Work up- Procalcitonin - 0.7, BNP 6766, ABGs-7.35, pCO2: 46, pO2: 32, HCO3: 25; CTA CHEST- No PE, Multifocal pneumonia, Mucus plugging, Moderate compression deformities at T12 and L1. l1- New compression deformity. CXR: Infiltrate at the right lung base concerning for pneumonia. Developing edema considered less likely given the asymmetry. Volume overload with congestive change. Bilateral hilar prominence likely vascular in etiology or less likely lymphadenopathy. Possible underlying chronic and/or obstructive lung disease. MRSA - neg -Blood cultures pending -Pulmonary consulted (4) Elevated troponin: Trending down Troponin: 0.3. EKG without acute changes. No CP reported. Likely demand ischemia secondary to sepsis, pneumonia, hypoxia -Troponin- 0.305--> 0.206--> 0.174 -Echo- EF - 65-70%, No regional wall motion abnormalities (5) Acute kidney injury: RESOLVED Cr: 1.26. Baseline Cr: ~0.7, near baseline now It is reported pt not eating and drinking over past 24 hours -On IVF---> Will discontinue IVF -avoid nephrotoxic agents when possible (6) Elevated LFTs: TRENDING DOWN Unclear etiology, sepsis ? Total bili:0.6, AST: 340, ALT: 241, Alk Phos:106 on admission Denies abdominal pain. May be secondary to sepsis -Monitor LFTs (7) Hyperglycemia: NEW ONSET DIABETES MELLITUS HBA1C 7.1 -ISS, Accuchecks added. Insulin Lantus 6 units added as on steroids -Will need to consider starting Metformin on discharge -Counseling done (8) COPD (chronic obstructive pulmonary disease): Not on oxygen at home -continue Advair -Duonebs QID -Bipap, supplemental oxygen -Change IV solumedrol 40 mg daily to prednisone 40 mg x 5 days to help with pneumonia and wheezing while in ED (9) Multiple sclerosis: (10) Restless leg syndrome: Hx MS, RLS, chronic right hemiparesis. Follows with Dr Alatorre -neurology -Currently holding Zanaflex, Gabapentine, Amitriptyline, Oxycodone and reassess mental status with BIPAP (11) HTN (hypertension): Stable -Amlodipine to be continued (12) Depression: (13) Anxiety: -Currently holding Doxepin, mirtazapine and reassess this afternoon/evening (14) Tobacco use: -Encourage smoking cessation -Nicotine patch DVT Prophylaxis -Heparin SQ DISPOSITION Continue with PCU monitoring Full Code as per discussion with pt and pt's Follows with Dr Chuck Smith for routine care Subjective Patient does have cough. Denies any worsening of shortness of breath, chest pain. No fever, chills. Requiring 4 to 5 L of oxygen Physical Exam Physical Exam: GENERAL- AAOX3, No acute distress, Chronically ill looking + LUNGS- Air entry bilaterally decreased. Few rales + HEART- Regular rate and rhythm. No murmurs EXTREMITIES- Good peripheral pulses, no edema NEUROMUSCULAR- AAOX3, Grossly no focal deficits Results & Data Vital Signs (Past 12 Hours) Vital Signs Temp Pulse Resp BP Pulse Ox 03/31/19 04:00 36.6 C 92 H 20 117/74 92 03/31/19 03:49 86 16 87 L 03/30/19 23:18 98 H 17 90 03/30/19 22:52 36.8 C 101 H 22 153/90 H 90 (1) Respiratory failure Chronicity: unspecified Respiratory failure complication: hypoxia Qualified Code(s): J96.91 - Respiratory failure, unspecified with hypoxia (2) PNA (pneumonia) Laterality: right Lung location: lower lobe of lung Pneumonia type: due to unspecified organism Qualified Code(s): J18.1 - Lobar pneumonia, unspecified organism
[2019-03-31] MEDS ORDERED: POTASSIUM CHLORIDE 10 MEQ TABCR PO STA (08:20)
[2019-03-31] MEDS ORDERED: GLUCOSE 40% GEL 15 GM TUBE PO PRN ×2 (08:41→11:46)
[2019-03-31] MEDS ORDERED: GLUCOSE 10 TABS/TUBE PO PRN ×2 (08:41→11:46)
[2019-03-31] MEDS ORDERED: CARBOHYDRATES FOR HYPOGLYCEMIA PO PRN ×2 (08:41→11:46)
[2019-03-31] MEDS ORDERED: GLUCAGON FOR INJ 1 MG VIAL SQ PRN ×2 (08:41→11:46)
[2019-03-31] MEDS ORDERED: DEXTROSE 50% 50 ML SYRINGE IV PRN ×2 (08:41→11:46)
[2019-03-31] MEDS ORDERED: INSULIN GLARGINE SOLOSTAR 100 UNITS/ML 3 ML PEN SC ONE (12:30)
[2019-03-31] MEDS: INSULIN ASPART 100 UNITS/ML 3 ML PEN SC SCH ×3 (13:05→20:07)
[2019-03-31] MEDS: OXYCODONE HCL IR 5 MG TAB (IMMEDIATE RELEASE) PO PRN ×2 (13:18→22:18)
--- NOTE | 2019-03-31 15:39 | Pulmonology Progress Note ---
Date of Service March 31, 2019 Assessment & Plan (1) PNA (pneumonia): Complete 5 to 7 days of antibiotics Continue oxygen and evaluate oxygen needs prior to discharge Laterality: right Lung location: lower lobe of lung Pneumonia type: due to unspecified organism Qualified Code(s): J18.1 - Lobar pneumonia, unspecified organism (2) COPD exacerbation: Continue antibiotics, bronchodilators, inhaled and systemic steroid's and oxygen. No indication for bronchoscopy at this time. Taper steroids over 10-14 days (3) Respiratory failure with hypoxia: Continue supplemental oxygen. D/C BiPAP Evaluate oxygen needs prior to discharge Smoking cessation Please reconsult if needed Subjective Patient is off of BiPAP.She denies dyspnea at rest Review of Systems Review of Systems: All systems reviewed & are unremarkable except as noted in HPI & below Physical Exam Physical Exam: Awake alert no acute distress Head normocephalic atraumatic Pharynx unremarkable Neck supple without JVD adenopathy or bruits Chest clear bilaterally no wheezing rales or rhonchi no accessory muscle use Cardiac regular rhythm no murmurs rubs gallops Abdomen soft nontender no masses no organomegaly Results & Data Vital Signs (Past 12 Hours) Vital Signs Temp Pulse Resp BP Pulse Ox 03/31/19 15:14 68 18 94 03/31/19 11:34 37.4 C 98 H 20 147/84 H 91 03/31/19 11:14 98 H 18 90 03/31/19 09:58 91 03/31/19 08:00 37.1 C 92 H 22 119/73 03/31/19 04:00 36.6 C 92 H 20 117/74 92 03/31/19 03:49 86 16 87 L Laboratory Results 03/31/19 03/31/19 03/31/19 Range/Units 11:28 11:27 08:44 WBC (4.8-10.8) K/uL RBC (4.2-5.4) M/uL Hgb (12.0-16.0) g/dL Hct (37-47) % MCV (80-100) fL MCH (25-34) pg MCHC (32-36) g/dL RDW Std Deviation (36.4-46.3) fL RDW Coeff of Marilia (11.5-14.5) % Plt Count (130-400) K/uL MPV (7.4-10.4) fL Immature Gran % (Auto) % Neut % (Auto) % Lymph % (Auto) % Edwards % (Auto) % Eos % (Auto) % Baso % (Auto) % Immature Gran # (Auto) (0.00-0.02) K/uL Neut # (Auto) (1.4-6.5) K/uL Lymph # (Auto) (1.2-3.4) K/uL Edwards # (Auto) (0.11-0.59) K/uL Eos # (Auto) (0-0.5) K/uL Baso # (Auto) (0-0.2) K/uL Absolute Nucleated RBC (0-0) K/uL Nucleated RBC % (auto) % Sodium (136-145) mmol/L Potassium (3.5-5.1) mmol/L Chloride (98-107) mmol/L Carbon Dioxide (21-32) mmol/L Anion Gap (3-11) BUN (7-18) mg/dl Creatinine (0.6-1.2) mg/dl Est Cr Clr Drug Dosing ml/min Est GFR ( Amer) Est GFR (Non-Af Amer) BUN/Creatinine Ratio (10-20) Glucose (70-99) mg/dl POC Glucose 304 H* 324 H* (70-99) Estimat Average Glucose mg/dl Hemoglobin A1c (4.5-5.6) % Lactate 3.4 H* (0.4-2.0) mmol/L Calcium (8.5-10.1) mg/dl Total Bilirubin (0.2-1) mg/dl Direct Bilirubin (0-0.2) mg/dl AST (15-37) U/L ALT (12-78) U/L Alkaline Phosphatase (45-117) U/L Total Creatine Kinase (26-192) U/L Troponin I (0-0.045) ng/ml Total Protein (6.4-8.2) gm/dl Albumin (3.4-5.0) gm/dl Globulin (2.5-4.0) gm/dl Albumin/Globulin Ratio (0.9-2) Nasal Screen MRSA (PCR) (Negative) 03/31/19 03/31/19 03/31/19 Range/Units 06:17 06:17 06:17 WBC 9.45 (4.8-10.8) K/uL RBC 4.17 L (4.2-5.4) M/uL Hgb 11.9 L (12.0-16.0) g/dL Hct 35.1 L (37-47) % MCV 84.2 (80-100) fL MCH 28.5 (25-34) pg MCHC 33.9 (32-36) g/dL RDW Std Deviation 44.2 (36.4-46.3) fL RDW Coeff of Marilia 14.3 (11.5-14.5) % Plt Count 144 (130-400) K/uL MPV 9.2 (7.4-10.4) fL Immature Gran % (Auto) 0.4 % Neut % (Auto) 85.9 % Lymph % (Auto) 8.1 % Edwards % (Auto) 5.5 % Eos % (Auto) 0.0 % Baso % (Auto) 0.1 % Immature Gran # (Auto) 0.04 H (0.00-0.02) K/uL Neut # (Auto) 8.11 H (1.4-6.5) K/uL Lymph # (Auto) 0.77 L (1.2-3.4) K/uL Edwards # (Auto) 0.52 (0.11-0.59) K/uL Eos # (Auto) 0.00 (0-0.5) K/uL Baso # (Auto) 0.01 (0-0.2) K/uL Absolute Nucleated RBC 0.02 H (0-0) K/uL Nucleated RBC % (auto) 0.2 % Sodium 141 (136-145) mmol/L Potassium 3.4 L (3.5-5.1) mmol/L Chloride 110 H (98-107) mmol/L Carbon Dioxide 26 (21-32) mmol/L Anion Gap 5.0 (3-11) BUN 15 (7-18) mg/dl Creatinine 0.81 D (0.6-1.2) mg/dl Est Cr Clr Drug Dosing 61.0 ml/min Est GFR ( Amer) 90.2 Est GFR (Non-Af Amer) 77.8 BUN/Creatinine Ratio 18.5 (10-20) Glucose 216 H (70-99) mg/dl POC Glucose (70-99) Estimat Average Glucose 157 mg/dl Hemoglobin A1c 7.1 H (4.5-5.6) % Lactate (0.4-2.0) mmol/L Calcium 8.0 L (8.5-10.1) mg/dl Total Bilirubin 0.5 (0.2-1) mg/dl Direct Bilirubin 0.1 (0-0.2) mg/dl AST 124 H (15-37) U/L ALT 195 H (12-78) U/L Alkaline Phosphatase 84 (45-117) U/L Total Creatine Kinase 547 H (26-192) U/L Troponin I (0-0.045) ng/ml Total Protein 6.3 L D (6.4-8.2) gm/dl Albumin 2.6 L (3.4-5.0) gm/dl Globulin 3.7 (2.5-4.0) gm/dl Albumin/Globulin Ratio 0.7 L (0.9-2) Nasal Screen MRSA (PCR) (Negative) 03/30/19 03/30/19 03/30/19 Range/Units 20:17 20:17 18:10 WBC (4.8-10.8) K/uL RBC (4.2-5.4) M/uL Hgb (12.0-16.0) g/dL Hct (37-47) % MCV (80-100) fL MCH (25-34) pg MCHC (32-36) g/dL RDW Std Deviation (36.4-46.3) fL RDW Coeff of Marilia (11.5-14.5) % Plt Count (130-400) K/uL MPV (7.4-10.4) fL Immature Gran % (Auto) % Neut % (Auto) % Lymph % (Auto) % Edwards % (Auto) % Eos % (Auto) % Baso % (Auto) % Immature Gran # (Auto) (0.00-0.02) K/uL Neut # (Auto) (1.4-6.5) K/uL Lymph # (Auto) (1.2-3.4) K/uL Edwards # (Auto) (0.11-0.59) K/uL Eos # (Auto) (0-0.5) K/uL Baso # (Auto) (0-0.2) K/uL Absolute Nucleated RBC (0-0) K/uL Nucleated RBC % (auto) % Sodium (136-145) mmol/L Potassium (3.5-5.1) mmol/L Chloride (98-107) mmol/L Carbon Dioxide (21-32) mmol/L Anion Gap (3-11) BUN (7-18) mg/dl Creatinine (0.6-1.2) mg/dl Est Cr Clr Drug Dosing ml/min Est GFR ( Amer) Est GFR (Non-Af Amer) BUN/Creatinine Ratio (10-20) Glucose (70-99) mg/dl POC Glucose (70-99) Estimat Average Glucose mg/dl Hemoglobin A1c (4.5-5.6) % Lactate 5.7 H* (0.4-2.0) mmol/L Calcium (8.5-10.1) mg/dl Total Bilirubin (0.2-1) mg/dl Direct Bilirubin (0-0.2) mg/dl AST (15-37) U/L ALT (12-78) U/L Alkaline Phosphatase (45-117) U/L Total Creatine Kinase (26-192) U/L Troponin I 0.174 H* (0-0.045) ng/ml Total Protein (6.4-8.2) gm/dl Albumin (3.4-5.0) gm/dl Globulin (2.5-4.0) gm/dl Albumin/Globulin Ratio (0.9-2) Nasal Screen MRSA (PCR) Negative (Negative) Medications Administered Home Medications Medication Instructions Recorded Confirmed Last Taken albuterol sulfate 2 puff INHALATION QID PRN 08/02/18 03/30/19 Unknown amitriptyline 100 mg PO HS 08/02/18 03/30/19 Unknown amlodipine 2.5 mg PO DAILY 08/02/18 03/30/19 Unknown ergocalciferol (vitamin D2) 50,000 unit PO UD 08/02/18 03/30/19 Unknown [Drisdol] gabapentin 3 cap PO HS 08/02/18 03/30/19 Unknown ipratropium-albuterol 3 ml INHALATION QID PRN 08/02/18 03/30/19 Unknown melatonin 10 mg PO HS 08/02/18 03/30/19 Unknown tizanidine 4 mg PO UD 08/02/18 03/30/19 Unknown clonazepam 2 mg PO DIRECTED 03/30/19 03/30/19 Unknown doxepin [Silenor] 6 mg PO HS 03/30/19 03/30/19 Unknown fluticasone propion-salmeterol 1 inh INHALATION BID 03/30/19 03/30/19 Unknown mirtazapine 30 mg PO HS 03/30/19 03/30/19 Unknown oxycodone 10 mg PO TID PRN 03/30/19 03/30/19 Unknown Active Medications Generic Name Dose Route Start Last Admin Trade Name Freq PRN Reason Stop Dose Admin Albuterol 3 ml 03/30/19 13:03 03/31/19 15:13 Duoneb NEB 04/29/19 13:02 3 ml Q4R HALINA Administration Amlodipine Besylate 2.5 mg 03/31/19 09:00 03/31/19 08:13 Norvasc PO 04/30/19 08:59 2.5 mg DAILY [facility]INA Administration Gabapentin 900 mg 03/30/19 21:00 03/30/19 22:03 Neurontin PO 04/29/19 20:59 900 mg HS HALINA Administration Heparin Sodium (Porcine) 5,000 units 03/30/19 14:00 03/31/19 13:06 Heparin Sodium (Porcine) SQ 04/29/19 13:59 Not Given Q8 HALINA Piperacillin Sod/Tazobactam 115 mls @ 28.75 mls/hr 03/30/19 16:00 03/31/19 12:16 Sod 3.375 gm/ Dextrose IV 04/06/19 15:59 Infused Q8H [facility]INA Infusion Protocol Insulin Aspart 0 units 03/31/19 16:30 03/31/19 13:05 Novolog Flexpen SC 04/30/19 16:29 8 units ACHS HALINA Administration Miscellaneous 1 ea 03/30/19 21:00 03/30/19 22:04 Remove Nicoderm Patch N/A 04/29/19 20:59 1 ea HS [facility]INA Administration Nicotine 14 mg 03/30/19 17:00 03/31/19 08:13 Nicoderm Cq TD 04/29/19 16:59 14 mg QAM [facility]INA Administration Oxycodone HCl 10 mg 03/30/19 20:53 03/31/19 13:18 Roxicodone Immediate Rel PO 04/13/19 20:52 10 mg TID PRN Administration Pain Fluticasone/Salmeterol 1 puffs 03/30/19 21:00 03/31/19 08:12 Advair Diskus 250/50 INH 04/29/19 20:59 1 puffs BID HALINA Administration
[2019-03-31] MEDS ORDERED: INSULIN GLARGINE SOLOSTAR 100 UNITS/ML 3 ML PEN SQ STA (19:41)
[2019-03-31] MEDS ORDERED: clonazePAM 0.5 MG TAB PO STA (19:45)
[2019-03-31] MEDS: TIZANIDINE HCL 4 MG TABLET PO SCH (20:05)
[2019-03-31] MEDS: GABAPENTIN 300 MG CAP PO SCH (20:05)
[2019-03-31] MEDS ORDERED: INSULIN GLARGINE SOLOSTAR 100 UNITS/ML 3 ML PEN SC SCH (21:00)
[2019-03-31] MEDS ORDERED: AMITRIPTYLINE HCL 50 MG TAB PO STA (22:08)
[2019-04-01] MEDS: ALBUT/IPRATROP 3MG/0.5MG NEB 3 ML VIAL NEB SCH ×6 (03:43→23:06)
[2019-04-01] MEDS: HEPARIN SOD 5,000 UNIT/0.5 ML VIAL SQ SCH ×3 (05:56→21:42)
[2019-04-01 07:26] LABS: Hematocrit (blood only) 33.5 % (37-47); Hemoglobin 10.9 g/dL (12.0-16.0); Mean Corpuscular Hgb Conc 32.5 g/dL (32-36); Mean Platelet Volume 9.9 fL (7.4-10.4); Nucleated RBC # (auto) 0.09 K/uL (0-0); Nucleated RBC % (auto) 0.8 %; Platelet Count 154 K/uL (130-400); RDW Coefficient of Variation 14.5 % (11.5-14.5); RDW Standard Deviation 45.5 fL (36.4-46.3); Red Blood Count 3.94 M/uL (4.2-5.4); White Blood Count 10.76 K/uL (4.8-10.8)
[2019-04-01 07:43] LABS: Albumin Level 2.4 gm/dl (3.4-5.0); BUN Creatinine Ratio 25.6 (10-20); Calcium 8.8 mg/dl (8.5-10.1); Creatinine Clr Calc Pharmacy 69.6 ml/min; Est GFR (African American) 105.8; Est GFR (Non-African American) 91.3; Potassium 3.6 mmol/L (3.5-5.1)
[2019-04-01 07:46] LABS: Albumin Globulin Ratio 0.6 (0.9-2); Bilirubin,Total 0.3 mg/dl (0.2-1); Globulin 3.9 gm/dl (2.5-4.0); Total Protein 6.3 gm/dl (6.4-8.2)
[2019-04-01] MEDS: PIPERACILLIN/TAZOBACTAM 3.375 GM in DEXTROSE 5% 100 ML IV SCH ×3 (08:07→23:24)
[2019-04-01] MEDS: INSULIN ASPART 100 UNITS/ML 3 ML PEN SC SCH ×4 (08:13→20:12)
[2019-04-01] MEDS: FLUTICASONE/SALMETEROL 250/50 (ADVAIR) 14 PUFF/1 INHALER INH SCH ×2 (08:15→20:03)
[2019-04-01] MEDS: NICOTINE 14 MG/24 HR PATCH TD SCH (08:16)
[2019-04-01] MEDS: AMLODIPINE BESYLATE 5 MG TAB PO SCH (08:16)
[2019-04-01] MEDS: OXYCODONE HCL IR 5 MG TAB (IMMEDIATE RELEASE) PO PRN ×2 (09:51→20:24)
[2019-04-01] MEDS: predniSONE 20 MG TAB PO SCH (09:51)
--- NOTE | 2019-04-01 13:08 | Fluoroscopy Report ---
FL video swallow HISTORY: Right-sided pneumonia. Assess for aspiration. TECHNIQUE: Video fluoroscopic evaluation of swallowing was performed in the AP and lateral projection s by the speech pathology staff. The patient is fed nectar-thick and thin liquid barium, a barium coa della wafer, and barium pudding. FLUOROSCOPY TIME: 3.1 minutes. A cine loop submitted. COMPARISON STUDY: None. FINDINGS: Normal hyoid excursion. There are few episodes of incomplete epiglottic deflection. Small a mount of silent aspiration with the swallows of the thin liquid barium. Otherwise, no aspiration iden tified with the remaining barium consistencies. Moderate esophageal dysmotility. IMPRESSION: 1. Small amount of silent aspiration with the thin liquid barium. 2. Please see the speech pathologist report for detailed findings and recommendations. Electronically signed by: Reg Barker M.D. 04/01/2019 1:06 PM
--- NOTE | 2019-04-01 14:54 | Hospitalist Progress Note ---
Date of Service April 01, 2019 Assessment & Plan (1) Respiratory failure: Secondary to COPD exacerbation complicated by multilobar pneumonia Management is as below (2) PNA (pneumonia): Has multilobar pneumonia on CAT scan Appreciate pulmonary input and recommendation Continue current medications (3) Sepsis: Pt with hx MS, COPD, tobacco use presented to ER for fall and was found to be hypoxic with O2 sat in 60's on RA by EMS and was brought to ER. Sepsis as met SIRS criteria with tachycardia, tachypnea, lactic acidosis and infiltrate on CXR. Community acquired pneumonia. Has been on IV Zosyn - Day 4 CTA CHEST- No PE, Multifocal pneumonia, Mucus plugging, Moderate compression deformities at T12 and L1. l1- New compression deformity. CXR: Infiltrate at the right lung base concerning for pneumonia. Developing edema considered less likely given the asymmetry. Volume overload with congestive change. Bilateral hilar prominence likely vascular in etiology or less likely lymphadenopathy. Possible underlying chronic and/or obstructive lung disease. MRSA - neg Blood cultures pending Pulmonary consulted-appreciate input and recommendation Clinically not any better yet (4) Elevated troponin: Trending down Troponin: 0.3. EKG without acute changes. No CP reported. Likely demand ischemia secondary to sepsis, pneumonia, hypoxia -Troponin- 0.305--> 0.206--> 0.174 -Echo- EF - 65-70%, No regional wall motion abnormalities -No acute cardiac symptoms (5) Acute kidney injury: RESOLVED Cr: 1.26. Baseline Cr: ~0.7, near baseline now It is reported pt not eating and drinking over past 24 hours -On IVF---> Will discontinue IVF -avoid nephrotoxic agents when possible (6) Elevated LFTs: TRENDING DOWN Unclear etiology, likely secondary to sepsis Total bili:0.6, AST: 340, ALT: 241, Alk Phos:106 on admission Denies abdominal pain. May be secondary to sepsis -Monitor LFTs-LFTs are improving (7) Hyperglycemia: NEW ONSET DIABETES MELLITUS HBA1C 7.1 -ISS, Accuchecks added. Insulin Lantus 6 units added as on steroids -Will need to consider starting Metformin on discharge -Counseling done (8) COPD (chronic obstructive pulmonary disease): Not on oxygen at home -continue Advair -Duonebs QID -Bipap, supplemental oxygen -Change IV solumedrol 40 mg daily to prednisone 40 mg x 5 days to help with pneumonia and wheezing while in ED -We will take a few days to improve (9) Multiple sclerosis: (10) Restless leg syndrome: Hx MS, RLS, chronic right hemiparesis. Follows with Dr Alatorre -neurology -Currently holding Zanaflex, Gabapentine, Amitriptyline, Oxycodone and reassess mental status with BIPAP Complains to have bilateral leg pain We will continue with her usual home medications and apply moist heat (11) HTN (hypertension): Stable -Amlodipine to be continued (12) Depression: (13) Anxiety: -Currently holding Doxepin, mirtazapine and reassess this afternoon/evening (14) Tobacco use: -Encourage smoking cessation -Nicotine patch DVT Prophylaxis -Heparin SQ DISPOSITION Continue with PCU monitoring Full Code as per discussion with pt and pt's Subjective 04/01 The patient was seen and examined in the telemetry unit Pt is 64 y/o F COPD not on oxygen, multiple sclerosis, depression, anxiety, insomnia, RLS, chronic right hemiparesis, tobacco use presented to ER for hypoxia. Noted to have multifocal pneumonia on CAT scan of the chest Has shortness of breath and generalized weakness Complaint history of pain in the legs which has been chronic Review of Systems Review of Systems: All systems reviewed and are unremarkable except as noted below Constitutional: + fatigue, + weakness, + anorexia and + insomnia Respiratory: + cough, + dyspnea and + wheezing Neurologic: + generalized weakness Psychiatric: + depression Physical Exam Physical Exam: Lying in bed with moderate shortness of breath and distress secondary to pain in the leg Constitutional: + acute distress (Mild) and + ill appearing Eyes: PERRL, conjunctivae normal, anicteric sclerae ENMT: external ear and nose normal, oropharynx normal Neck: trachea midline, no thyromegaly Respiratory: + respiratory distress and + uses accessory muscles Auscultation: + diminished lung sounds, + crackles (Both bases) and + wheezes Cardiovascular: Rate/Rhythm: regular rate and regular rhythm Heart Sounds: normal S1 and normal S2 Gastrointestinal (Abdomen): Inspection/Auscultation: abdomen normal to inspection and normal bowel sounds Percussion/Palpation: abdomen soft; abdomen nontender Musculoskeletal: No acute arthritis in any joints Neurologic: moves all extremities; no focal motor deficits Generally weak Lymphatic: no cervical or axillary lymphadenopathy Results & Data Vital Signs (Past 12 Hours) Vital Signs Temp Pulse Pulse Pulse Resp BP Pulse Ox 04/01/19 11:28 36.9 C 100 H 20 137/82 92 04/01/19 10:47 100 H 28 H 90 04/01/19 08:00 84 04/01/19 07:25 37.0 C 22 129/84 94 04/01/19 07:20 81 20 90 04/01/19 04:00 36.9 C 83 22 127/79 91 Laboratory Results Short CBC 04/01/19 Range/Units 07:14 WBC 10.76 (4.8-10.8) K/uL Hgb 10.9 L (12.0-16.0) g/dL Hct 33.5 L (37-47) % Plt Count 154 (130-400) K/uL BMP 04/01/19 07:14 Sodium 145 Potassium 3.6 Chloride 112 H Carbon Dioxide 26 BUN 18 Creatinine 0.71 Glucose 138 H Calcium 8.8 Liver Function 04/01/19 Range/Units 07:14 Total Bilirubin 0.3 (0.2-1) mg/dl AST 63 H (15-37) U/L ALT 168 H (12-78) U/L Alkaline Phosphatase 90 (45-117) U/L Albumin 2.4 L (3.4-5.0) gm/dl Medications Administered Current Inpatient Medications Albuterol (Duoneb) 3 ml NEB Q4R HALINA Stop: 04/29/19 13:02 Last Admin: 04/01/19 10:44 Dose: 3 ml Documented by: Amitriptyline HCl (Elavil) 100 mg PO HS [facility]INA Stop: 05/01/19 20:59 Amlodipine Besylate (Norvasc) 2.5 mg PO DAILY [facility]INA Stop: 04/30/19 08:59 Last Admin: 04/01/19 08:16 Dose: 2.5 mg Documented by: Dextrose (Dextrose 50%) 25 - 50 ml IV UD PRN; Protocol PRN Reason: Hypoglycemia Protocol Stop: 04/30/19 08:40 Gabapentin (Neurontin) 900 mg PO HS [facility]INA Stop: 04/29/19 20:59 Last Admin: 03/31/19 20:05 Dose: 900 mg Documented by: Glucagon (Glucagen) 1 mg SQ UD PRN; Protocol PRN Reason: Hypoglycemia Protocol Stop: 04/30/19 08:40 Glucose (Glucose 40%) 15 - 30 gm PO UD PRN; Protocol PRN Reason: Hypoglycemia Protocol Stop: 04/30/19 08:40 Glucose (Dex4 Glucose) 4 - 8 tabs PO UD PRN; Protocol PRN Reason: Hypoglycemia Protocol Stop: 04/30/19 08:40 Heparin Sodium (Porcine) (Heparin Sodium (Porcine)) 5,000 units SQ Q8 [facility]INA Stop: 04/29/19 13:59 Last Admin: 04/01/19 14:25 Dose: Not Given Documented by: Piperacillin Sod/Tazobactam (Sod 3.375 gm/ Dextrose) 115 mls @ 28.75 mls/hr IV Q8H HALINA; Protocol Stop: 04/06/19 15:59 Last Infusion: 04/01/19 12:14 Dose: Infused Documented by: Insulin Aspart (Novolog Flexpen) 0 units SC ACHS [facility] Stop: 04/30/19 19:44 Last Admin: 04/01/19 12:32 Dose: 3 units Documented by: Insulin Glargine (Lantus Solostar Pen) 6 units SC BID [facility] Stop: 05/02/19 08:59 Mirtazapine (Remeron) 30 mg PO HS [facility] Stop: 05/01/19 20:59 Miscellaneous (Remove Nicoderm Patch) 1 ea N/A [facility] Stop: 04/29/19 20:59 Last Admin: 03/31/19 19:19 Dose: Not Given Documented by: Miscellaneous (Carbohydrates For Hypoglycemia) 15 - 30 gm PO UD PRN PRN Reason: Hypoglycemia Treatment Stop: 04/30/19 08:40 Miscellaneous Information (Consult) 1 ea N/A UD PRN PRN Reason: Consult Stop: 04/29/19 13:15 Nicotine (Nicoderm Cq) 14 mg TD QAM [facility] Stop: 04/29/19 16:59 Last Admin: 04/01/19 08:16 Dose: 14 mg Documented by: Oxycodone HCl (Roxicodone Immediate Rel) 10 mg PO TID PRN PRN Reason: Pain Stop: 04/13/19 20:52 Last Admin: 04/01/19 09:51 Dose: 10 mg Documented by: Prednisone (Prednisone) 40 mg PO DAILY [facility] Stop: 05/01/19 08:59 Last Admin: 06/12/19 09:51 Dose: 40 mg Documented by: Fluticasone/Salmeterol (Advair Diskus 250/50) 1 puffs INH BID [facility] Stop: 04/29/19 20:59 Last Admin: 04/01/19 08:15 Dose: 1 puffs Documented by: Tizanidine HCl (Zanaflex) 8 mg PO DAILY@1900 [facility] Stop: 04/30/19 18:59 Last Admin: 03/31/19 20:05 Dose: 8 mg Documented by: Tizanidine HCl (Zanaflex) 4 mg PO DAILY@2200 PRN PRN Reason: muscle spasms Stop: 04/29/19 21:09 Tizanidine HCl (Zanaflex) 4 mg PO DAILY@0300 PRN PRN Reason: muscle spasms Stop: 04/29/19 21:10 (1) Respiratory failure Chronicity: unspecified Respiratory failure complication: hypoxia Qualified Code(s): J96.91 - Respiratory failure, unspecified with hypoxia (2) PNA (pneumonia) Laterality: right Lung location: lower lobe of lung Pneumonia type: due to unspecified organism Qualified Code(s): J18.1 - Lobar pneumonia, unspecified organism
[2019-04-01] MEDS ORDERED: BISACODYL 5 MG TABEC PO ONE (19:05)
[2019-04-01] MEDS: TIZANIDINE HCL 4 MG TABLET PO SCH (20:02)
[2019-04-01] MEDS: AMITRIPTYLINE HCL 100 MG TAB PO SCH (20:04)
[2019-04-01] MEDS: PSYLLIUM 58.6% POWDER PACKET PO SCH (20:04)
[2019-04-01] MEDS: MIRTAZAPINE TAB 15 MG TAB PO SCH (20:05)
[2019-04-01] MEDS: GABAPENTIN 300 MG CAP PO SCH (20:05)
[2019-04-02] MEDS: ALBUT/IPRATROP 3MG/0.5MG NEB 3 ML VIAL NEB SCH ×6 (03:38→23:56)
[2019-04-02] MEDS: HEPARIN SOD 5,000 UNIT/0.5 ML VIAL SQ SCH ×3 (05:10→20:56)
[2019-04-02 06:52] LABS: Hematocrit (blood only) 34.9 % (37-47); Hemoglobin 11.4 g/dL (12.0-16.0); Mean Corpuscular Hgb Conc 32.7 g/dL (32-36); Mean Corpuscular Volume 85.7 fL (80-100); Mean Platelet Volume 9.8 fL (7.4-10.4); Nucleated RBC # (auto) 0.06 K/uL (0-0); Nucleated RBC % (auto) 0.5 %; Platelet Count 163 K/uL (130-400); RDW Coefficient of Variation 14.8 % (11.5-14.5); RDW Standard Deviation 46.4 fL (36.4-46.3); Red Blood Count 4.07 M/uL (4.2-5.4); White Blood Count 12.24 K/uL (4.8-10.8)
[2019-04-02 07:12] LABS: Basophils # (auto) 0.03 K/uL (0-0.2); Basophils % (auto) 0.2 %; Eosinophils # (auto) 0.01 K/uL (0-0.5); Eosinophils % (auto) 0.1 %; Immature Granulocytes # (auto) 0.67 K/uL (0.00-0.02); Immature Granulocytes % (auto) 5.5 %; Lymphocytes # (auto) 1.04 K/uL (1.2-3.4); Lymphocytes % (auto) 8.5 %; Monocytes # (auto) 0.52 K/uL (0.11-0.59); Monocytes % (auto) 4.2 %; Neutrophils # (auto) 9.97 K/uL (1.4-6.5); Neutrophils % (auto) 81.5 %
[2019-04-02 07:33] LABS: Albumin Level 2.4 gm/dl (3.4-5.0); Calcium 8.3 mg/dl (8.5-10.1); Creatinine Clr Calc Pharmacy 71.8 ml/min; Est GFR (African American) 107.6; Est GFR (Non-African American) 92.9; Magnesium 2.4 mg/dl (1.8-2.4); Potassium 3.7 mmol/L (3.5-5.1)
[2019-04-02 07:36] LABS: Albumin Globulin Ratio 0.6 (0.9-2); Bilirubin,Total 0.5 mg/dl (0.2-1); Globulin 4.1 gm/dl (2.5-4.0); Phosphorus 2.3 mg/dl (2.5-4.9); Total Protein 6.5 gm/dl (6.4-8.2)
[2019-04-02] MEDS: FLUTICASONE/SALMETEROL 250/50 (ADVAIR) 14 PUFF/1 INHALER INH SCH ×2 (08:59→19:31)
[2019-04-02] MEDS: AMLODIPINE BESYLATE 5 MG TAB PO SCH (09:00)
[2019-04-02] MEDS: predniSONE 20 MG TAB PO SCH (09:00)
[2019-04-02] MEDS: INSULIN GLARGINE SOLOSTAR 100 UNITS/ML 3 ML PEN SC SCH ×2 (09:01→20:54)
[2019-04-02] MEDS: PIPERACILLIN/TAZOBACTAM 3.375 GM in DEXTROSE 5% 100 ML IV SCH (09:01)
[2019-04-02] MEDS: INSULIN ASPART 100 UNITS/ML 3 ML PEN SC SCH ×4 (09:02→20:55)
[2019-04-02] MEDS: OXYCODONE HCL IR 5 MG TAB (IMMEDIATE RELEASE) PO PRN ×2 (09:05→17:40)
[2019-04-02] MEDS: NICOTINE 14 MG/24 HR PATCH TD SCH (09:25)
[2019-04-02] MEDS: PSYLLIUM 58.6% POWDER PACKET PO SCH (09:29)
--- NOTE | 2019-04-02 16:28 | Hospitalist Progress Note ---
Date of Service April 02, 2019 Assessment & Plan (1) Respiratory failure: Secondary to COPD exacerbation complicated by multilobar pneumonia Management is as below (2) PNA (pneumonia): Has multilobar pneumonia on CAT scan Appreciate pulmonary input and recommendation Clinically not better Blood cultures have been negative We will change antibiotic to Levaquin only (3) Sepsis: Pt with hx MS, COPD, tobacco use presented to ER for fall and was found to be hypoxic with O2 sat in 60's on RA by EMS and was brought to ER. Sepsis as met SIRS criteria with tachycardia, tachypnea, lactic acidosis and infiltrate on CXR. Community acquired pneumonia. Has been on IV Zosyn - Day 4 CTA CHEST- No PE, Multifocal pneumonia, Mucus plugging, Moderate compression deformities at T12 and L1. l1- New compression deformity. CXR: Infiltrate at the right lung base concerning for pneumonia. Developing edema considered less likely given the asymmetry. Volume overload with congestive change. Bilateral hilar prominence likely vascular in etiology or less likely lymphadenopathy. Possible underlying chronic and/or obstructive lung disease. MRSA - neg Blood cultures -negative Pulmonary consulted-appreciate input and recommendation We will change antibiotic to oral Levaquin (4) Elevated troponin: Trending down Troponin: 0.3. EKG without acute changes. No CP reported. Likely demand ischemia secondary to sepsis, pneumonia, hypoxia -Troponin- 0.305--> 0.206--> 0.174 -Echo- EF - 65-70%, No regional wall motion abnormalities -No acute cardiac symptoms (5) Acute kidney injury: RESOLVED Cr: 1.26. Baseline Cr: ~0.7, near baseline now It is reported pt not eating and drinking over past 24 hours -On IVF---> Will discontinue IVF -avoid nephrotoxic agents when possible -Creatinine has been normalized (6) Elevated LFTs: TRENDING DOWN Unclear etiology, likely secondary to sepsis Total bili:0.6, AST: 340, ALT: 241, Alk Phos:106 on admission Denies abdominal pain. May be secondary to sepsis -Monitor LFTs-LFTs are improving further (7) Hyperglycemia: NEW ONSET DIABETES MELLITUS HBA1C 7.1 -ISS, Accuchecks added. Insulin Lantus 6 units added as on steroids -Will need to consider starting Metformin on discharge -Counseling done (8) COPD (chronic obstructive pulmonary disease): Not on oxygen at home -continue Advair -Duonebs QID -Bipap, supplemental oxygen -Change IV solumedrol 40 mg daily to prednisone 40 mg x 5 days to help with pneumonia and wheezing while in ED -We will take a few days to improve -Clinically improved (9) Multiple sclerosis: (10) Restless leg syndrome: Hx MS, RLS, chronic right hemiparesis. Follows with Dr Alatorre -neurology -Currently holding Zanaflex, Gabapentine, Amitriptyline, Oxycodone and reassess mental status with BIPAP Complains to have bilateral leg pain We will continue with her usual home medications and apply moist heat (11) HTN (hypertension): Stable -Amlodipine to be continued (12) Depression: (13) Anxiety: -Currently holding Doxepin, mirtazapine and reassess this afternoon/evening (14) Tobacco use: -Encourage smoking cessation -Nicotine patch DVT Prophylaxis -Heparin SQ DISPOSITION Continue with PCU monitoring Full Code as per discussion with pt and pt's Subjective 04/01 The patient was seen and examined in the telemetry unit Pt is 64 y/o F COPD not on oxygen, multiple sclerosis, depression, anxiety, insomnia, RLS, chronic right hemiparesis, tobacco use presented to ER for hypoxia. Noted to have multifocal pneumonia on CAT scan of the chest Has shortness of breath and generalized weakness Complaint history of pain in the legs which has been chronic 04/02 The patient was seen and examined in telemetry unit She has been feeling a lot better Still has some shortness of breath and cough And her leg pain is improved Review of Systems Review of Systems: All systems reviewed and are unremarkable except as noted below Constitutional: + fatigue, + weakness, + anorexia and + insomnia Respiratory: + cough, + dyspnea and + wheezing Neurologic: + generalized weakness and + restless legs Psychiatric: + depression Physical Exam Physical Exam: Minimal distress at rest due to shortness of breath Constitutional: + acute distress (Mild) and + ill appearing Eyes: PERRL, conjunctivae normal, anicteric sclerae ENMT: external ear and nose normal, oropharynx normal Neck: trachea midline, no thyromegaly Respiratory: + respiratory distress and + uses accessory muscles Auscultation: + diminished lung sounds, + crackles (Both bases) and + wheezes Cardiovascular: Rate/Rhythm: regular rate and regular rhythm Heart Sounds: normal S1 and normal S2 Gastrointestinal (Abdomen): Inspection/Auscultation: abdomen normal to inspection and normal bowel sounds Percussion/Palpation: abdomen soft; abdomen nontender Musculoskeletal: No acute arthritis involving any of the joints Neurologic: moves all extremities; no focal motor deficits Alert, awake and oriented x3. Generally weak Lymphatic: no cervical or axillary lymphadenopathy Results & Data Vital Signs (Past 12 Hours) Vital Signs Temp Pulse Pulse Resp BP Pulse Ox 04/02/19 15:23 98 H 16 93 04/02/19 14:49 36.9 C 97 H 16 150/76 H 91 04/02/19 11:47 37 C 91 H 22 135/85 6 L 04/02/19 11:28 85 20 94 04/02/19 08:00 65 04/02/19 07:10 37.6 C H 85 24 148/91 H 92 04/02/19 07:09 85 20 92 Laboratory Results Short CBC 04/02/19 Range/Units 06:29 WBC 12.24 H (4.8-10.8) K/uL Hgb 11.4 L (12.0-16.0) g/dL Hct 34.9 L (37-47) % Plt Count 163 (130-400) K/uL BMP 04/02/19 06:29 Sodium 142 Potassium 3.7 Chloride 109 H Carbon Dioxide 26 BUN 20 H Creatinine 0.70 Glucose 147 H Calcium 8.3 L Liver Function 04/02/19 Range/Units 06:29 Total Bilirubin 0.5 (0.2-1) mg/dl AST 62 H (15-37) U/L ALT 154 H (12-78) U/L Alkaline Phosphatase 111 (45-117) U/L Albumin 2.4 L (3.4-5.0) gm/dl Medications Administered Current Inpatient Medications Albuterol (Duoneb) 3 ml NEB Q4R [facility] Stop: 04/29/19 13:02 Last Admin: 04/02/19 15:21 Dose: 3 ml Documented by: Amitriptyline HCl (Elavil) 100 mg PO HS [facility] Stop: 05/01/19 20:59 Last Admin: 04/01/19 20:04 Dose: 100 mg Documented by: Amlodipine Besylate (Norvasc) 2.5 mg PO DAILY [facility] Stop: 04/30/19 08:59 Last Admin: 04/02/19 09:00 Dose: 2.5 mg Documented by: Dextrose (Dextrose 50%) 25 - 50 ml IV UD PRN; Protocol PRN Reason: Hypoglycemia Protocol Stop: 04/30/19 08:40 Gabapentin (Neurontin) 900 mg PO [facility] Stop: 04/29/19 20:59 Last Admin: 04/01/19 20:05 Dose: 900 mg Documented by: Glucagon (Glucagen) 1 mg SQ UD PRN; Protocol PRN Reason: Hypoglycemia Protocol Stop: 04/30/19 08:40 Glucose (Glucose 40%) 15 - 30 gm PO UD PRN; Protocol PRN Reason: Hypoglycemia Protocol Stop: 04/30/19 08:40 Glucose (Dex4 Glucose) 4 - 8 tabs PO UD PRN; Protocol PRN Reason: Hypoglycemia Protocol Stop: 04/30/19 08:40 Heparin Sodium (Porcine) (Heparin Sodium (Porcine)) 5,000 units SQ Q8 [facility] Stop: 04/29/19 13:59 Last Admin: 04/02/19 12:33 Dose: Not Given Documented by: Insulin Aspart (Novolog Flexpen) 0 units SC ACHS [facility] Stop: 04/30/19 19:44 Last Admin: 04/02/19 12:31 Dose: 4 units Documented by: Insulin Glargine (Lantus Solostar Pen) 6 units SC BID [facility] Stop: 05/02/19 08:59 Last Admin: 04/02/19 09:01 Dose: 6 units Documented by: Levofloxacin (Levaquin) 750 mg PO DAILY@1100 [facility] Stop: 04/10/19 15:59 Mirtazapine (Remeron) 30 mg PO [facility] Stop: 05/01/19 20:59 Last Admin: 04/01/19 20:05 Dose: 30 mg Documented by: Miscellaneous (Remove Nicoderm Patch) 1 ea N/A [facility] Stop: 04/29/19 20:59 Last Admin: 04/01/19 20:06 Dose: 1 ea Documented by: Miscellaneous (Carbohydrates For Hypoglycemia) 15 - 30 gm PO UD PRN PRN Reason: Hypoglycemia Treatment Stop: 04/30/19 08:40 Nicotine (Nicoderm Cq) 14 mg TD QAM [facility] Stop: 04/29/19 16:59 Last Admin: 04/02/19 09:25 Dose: 14 mg Documented by: Oxycodone HCl (Roxicodone Immediate Rel) 10 mg PO TID PRN PRN Reason: Pain Stop: 04/13/19 20:52 Last Admin: 04/02/19 09:05 Dose: 10 mg Documented by: Prednisone (Prednisone) 40 mg PO DAILY [facility] Stop: 05/01/19 08:59 Last Admin: 04/02/19 09:00 Dose: 40 mg Documented by: Psyllium Hydrophilic Mucilloid (Metamucil) 1 pkt PO QAM [facility] Stop: 05/01/19 19:14 Last Admin: 04/02/19 09:29 Dose: Not Given Documented by: Fluticasone/Salmeterol (Advair Diskus 250/50) 1 puffs INH BID [facility] Stop: 04/29/19 20:59 Last Admin: 04/02/19 08:59 Dose: 1 puffs Documented by: Tizanidine HCl (Zanaflex) 8 mg PO DAILY@1900 [facility] Stop: 04/30/19 18:59 Last Admin: 04/01/19 20:02 Dose: 8 mg Documented by: Tizanidine HCl (Zanaflex) 4 mg PO DAILY@2200 PRN PRN Reason: muscle spasms Stop: 04/29/19 21:09 Tizanidine HCl (Zanaflex) 4 mg PO DAILY@0300 PRN PRN Reason: muscle spasms Stop: 04/29/19 21:10 (1) Respiratory failure Chronicity: unspecified Respiratory failure complication: hypoxia Qualified Code(s): J96.91 - Respiratory failure, unspecified with hypoxia (2) PNA (pneumonia) Laterality: right Lung location: lower lobe of lung Pneumonia type: due to unspecified organism Qualified Code(s): J18.1 - Lobar pneumonia, unspecified organism
[2019-04-02] MEDS: TIZANIDINE HCL 4 MG TABLET PO SCH (19:31)
[2019-04-02] MEDS: AMITRIPTYLINE HCL 100 MG TAB PO SCH (19:32)
[2019-04-02] MEDS: GABAPENTIN 300 MG CAP PO SCH (19:33)
[2019-04-02] MEDS: MIRTAZAPINE TAB 15 MG TAB PO SCH (19:33)
[2019-04-03] MEDS: OXYCODONE HCL IR 5 MG TAB (IMMEDIATE RELEASE) PO PRN ×3 (02:13→18:00)
[2019-04-03] MEDS: ALBUT/IPRATROP 3MG/0.5MG NEB 3 ML VIAL NEB SCH ×2 (03:32→07:30)
[2019-04-03] MEDS: HEPARIN SOD 5,000 UNIT/0.5 ML VIAL SQ SCH ×3 (06:40→22:19)
[2019-04-03 07:14] LABS: Hematocrit (blood only) 36.3 % (37-47); Hemoglobin 11.9 g/dL (12.0-16.0); Mean Corpuscular Hgb Conc 32.8 g/dL (32-36); Mean Platelet Volume 9.8 fL (7.4-10.4); Nucleated RBC # (auto) 0.03 K/uL (0-0); Nucleated RBC % (auto) 0.3 %; Platelet Count 174 K/uL (130-400); RDW Coefficient of Variation 14.6 % (11.5-14.5); RDW Standard Deviation 45.5 fL (36.4-46.3); Red Blood Count 4.27 M/uL (4.2-5.4); White Blood Count 11.01 K/uL (4.8-10.8)
[2019-04-03 07:38] LABS: ALC (manual) 1.23 K/uL (1.2-3.4); Lymphocytes # (manual) 1.23 K/uL (1.2-3.4); Lymphocytes % (manual) 11.2 %; Metamyelocytes # (manual) 1.33 K/uL (0-0); Metamyelocytes % (manual) 12.1 %; Monocytes # (manual) 0.29 K/uL (0.11-0.59); Monocytes % (manual) 2.6 %; Myelocytes # (manual) 0.66 K/uL (0-0); Neutrophils % (manual) 68.1 %; RBC Morphology Unremarkable
[2019-04-03 07:48] LABS: Albumin Level 2.4 gm/dl (3.4-5.0); BUN Creatinine Ratio 39.1 (10-20); Calcium 8.9 mg/dl (8.5-10.1); Creatinine Clr Calc Pharmacy 82.4 ml/min; Est GFR (African American) 112.6; Est GFR (Non-African American) 97.2; Potassium 3.5 mmol/L (3.5-5.1)
[2019-04-03 07:51] LABS: Albumin Globulin Ratio 0.6 (0.9-2); Bilirubin,Total 0.3 mg/dl (0.2-1); Globulin 4.2 gm/dl (2.5-4.0); Total Protein 6.6 gm/dl (6.4-8.2)
[2019-04-03] MEDS: predniSONE 20 MG TAB PO SCH (08:17)
[2019-04-03] MEDS: FLUTICASONE/SALMETEROL 250/50 (ADVAIR) 14 PUFF/1 INHALER INH SCH ×2 (08:18→20:09)
[2019-04-03] MEDS: AMLODIPINE BESYLATE 5 MG TAB PO SCH (08:18)
[2019-04-03] MEDS: PSYLLIUM 58.6% POWDER PACKET PO SCH (08:18)
[2019-04-03] MEDS: NICOTINE 14 MG/24 HR PATCH TD SCH (08:19)
[2019-04-03] MEDS: INSULIN ASPART 100 UNITS/ML 3 ML PEN SC SCH ×4 (08:22→20:13)
[2019-04-03] MEDS: INSULIN GLARGINE SOLOSTAR 100 UNITS/ML 3 ML PEN SC SCH ×2 (08:24→20:12)
[2019-04-03] MEDS ORDERED: ALBUT/IPRATROP 3MG/0.5MG NEB 3 ML VIAL NEB PRN (08:47)
[2019-04-03] MEDS: IPRATROPIUM BROMIDE/ALBUTEROL respimat INH INH SCH ×4 (10:45→20:09)
--- NOTE | 2019-04-03 13:49 | Fluoroscopy Report ---
FL video swallow CLINICAL HISTORY: 64 years-old Female presenting with assess for silent aspiration. TECHNIQUE: Video fluoroscopic evaluation of swallowing was performed in the AP and lateral projection s in conjunction with speech pathology. The patient was administered various textures, including nect ar-thick and thin liquid barium, a barium coated wafer, and barium pudding. COMPARISON: None. FINDINGS: Normal oral transit, including normal tongue-soft palate seal. Normal soft palate-superior constricto r muscle seal without evidence of nasopharyngeal regurgitation. Normal oral transport/propulsion of t he food bolus. Normal hyoid elevation and epiglottic deflection. No evidence of a significant pharyng eal bolus residual. Trace laryngeal penetration within the laryngeal vestibule with administration of thin liquids. No pe netration of the remaining textures. None of the administered textures resulted in aspiration of [place] um contrast below the level of the true vocal folds. Fluoroscopy dosage (mGy): Not available. Fluoroscopy time: 2.5 minutes. Number or time of high level fluoroscopy (HLF), digital spot, or digital subtraction images: 0. IMPRESSION: 1. No aspiration identified. 2. Please see the speech pathologist report for detailed findings and recommendations. Electronically signed by: Marcial Matamoros M.D. 04/03/2019 1:47 PM
[2019-04-03] MEDS ORDERED: SODIUM CHLORIDE 0.65% NA SOLN 45 ML (OCEAN) ONE (16:04)
--- NOTE | 2019-04-03 16:23 | Hospitalist Progress Note ---
Date of Service April 03, 2019 Assessment & Plan (1) Respiratory failure: Secondary to COPD exacerbation complicated by multilobar pneumonia Management is as below (2) PNA (pneumonia): Has multilobar pneumonia on CAT scan Appreciate pulmonary input and recommendation Clinically not better Blood cultures have been negative We will change antibiotic to Levaquin only Clinically a lot better and will continue oral Levaquin Will check chest x-ray PA and lateral view tomorrow PT and OT evaluation and possible discharge in a day or 2 (3) Sepsis: Pt with hx MS, COPD, tobacco use presented to ER for fall and was found to be hypoxic with O2 sat in 60's on RA by EMS and was brought to ER. Sepsis as met SIRS criteria with tachycardia, tachypnea, lactic acidosis and infiltrate on CXR. Community acquired pneumonia. Has been on IV Zosyn - Day 4 CTA CHEST- No PE, Multifocal pneumonia, Mucus plugging, Moderate compression deformities at T12 and L1. l1- New compression deformity. CXR: Infiltrate at the right lung base concerning for pneumonia. Developing edema considered less likely given the asymmetry. Volume overload with congestive change. Bilateral hilar prominence likely vascular in etiology or less likely lymphadenopathy. Possible underlying chronic and/or obstructive lung disease. MRSA - neg Blood cultures -negative Pulmonary consulted-appreciate input and recommendation We will change antibiotic to oral Levaquin (4) Elevated troponin: Trending down Troponin: 0.3. EKG without acute changes. No CP reported. Likely demand ischemia secondary to sepsis, pneumonia, hypoxia -Troponin- 0.305--> 0.206--> 0.174 -Echo- EF - 65-70%, No regional wall motion abnormalities -No acute cardiac symptoms (5) Acute kidney injury: RESOLVED Cr: 1.26. Baseline Cr: ~0.7, near baseline now It is reported pt not eating and drinking over past 24 hours -On IVF---> Will discontinue IVF -avoid nephrotoxic agents when possible -Creatinine has been normalized (6) Elevated LFTs: TRENDING DOWN Unclear etiology, likely secondary to sepsis Total bili:0.6, AST: 340, ALT: 241, Alk Phos:106 on admission Denies abdominal pain. May be secondary to sepsis -Monitor LFTs-LFTs are improving further (7) Hyperglycemia: NEW ONSET DIABETES MELLITUS HBA1C 7.1 -ISS, Accuchecks added. Insulin Lantus 6 units added as on steroids -Will need to consider starting Metformin on discharge -Counseling done (8) COPD (chronic obstructive pulmonary disease): Not on oxygen at home -continue Advair -Duonebs QID -Bipap, supplemental oxygen -Change IV solumedrol 40 mg daily to prednisone 40 mg x 5 days to help with pneumonia and wheezing while in ED -We will take a few days to improve -Clinically improved (9) Multiple sclerosis: (10) Restless leg syndrome: Hx MS, RLS, chronic right hemiparesis. Follows with Dr Alatorre -neurology -Currently holding Zanaflex, Gabapentine, Amitriptyline, Oxycodone and reassess mental status with BIPAP Complains to have bilateral leg pain We will continue with her usual home medications and apply moist heat (11) HTN (hypertension): Stable -Amlodipine to be continued (12) Depression: (13) Anxiety: -Currently holding Doxepin, mirtazapine and reassess this afternoon/evening (14) Tobacco use: -Encourage smoking cessation -Nicotine patch DVT Prophylaxis -Heparin SQ DISPOSITION Continue with PCU monitoring Full Code as per discussion with pt and pt's Subjective 04/01 The patient was seen and examined in the telemetry unit Pt is 64 y/o F COPD not on oxygen, multiple sclerosis, depression, anxiety, insomnia, RLS, chronic right hemiparesis, tobacco use presented to ER for hypoxia. Noted to have multifocal pneumonia on CAT scan of the chest Has shortness of breath and generalized weakness Complaint history of pain in the legs which has been chronic 04/02 The patient was seen and examined in telemetry unit She has been feeling a lot better Still has some shortness of breath and cough And her leg pain is improved 04/03 The patient was seen and examined in medical telemetry unit She complains to have back pain and did not get her pain medications She also complained to have muscle spasm and did not get her Zanaflex Denies any increasing shortness of breath, denies any abdominal pain, nausea no vomiting Review of Systems Review of Systems: All systems reviewed and are unremarkable except as noted below Constitutional: + fatigue, + weakness, + anorexia and + insomnia Respiratory: + cough, + dyspnea and + wheezing Neurologic: + generalized weakness and + restless legs Psychiatric: + depression Physical Exam Physical Exam: No distress at rest Constitutional: well developed and + ill appearing Eyes: PERRL, conjunctivae normal, anicteric sclerae ENMT: external ear and nose normal, oropharynx normal Neck: trachea midline, no thyromegaly Respiratory: + respiratory distress (Minimal distress at rest) and + uses accessory muscles Auscultation: + diminished lung sounds, + crackles (Both bases) and + wheezes Cardiovascular: Rate/Rhythm: regular rate and regular rhythm Heart Sounds: normal S1 and normal S2 Gastrointestinal (Abdomen): Inspection/Auscultation: abdomen normal to inspection and normal bowel sounds Percussion/Palpation: abdomen soft; abdomen nontender Neurologic: moves all extremities; no focal motor deficits Lymphatic: no cervical or axillary lymphadenopathy Results & Data Vital Signs (Past 12 Hours) Vital Signs Temp Pulse Resp BP Pulse Ox 04/03/19 07:30 70 18 91 04/03/19 07:20 36.9 C 79 20 158/88 H 90 Laboratory Results Short CBC 04/03/19 Range/Units 06:43 WBC 11.01 H (4.8-10.8) K/uL Hgb 11.9 L (12.0-16.0) g/dL Hct 36.3 L (37-47) % Plt Count 174 (130-400) K/uL BMP 04/03/19 06:43 Sodium 143 Potassium 3.5 Chloride 109 H Carbon Dioxide 28 BUN 24 H Creatinine 0.61 Glucose 115 H Calcium 8.9 Liver Function 04/03/19 Range/Units 06:43 Total Bilirubin 0.3 (0.2-1) mg/dl AST 54 H (15-37) U/L ALT 141 H (12-78) U/L Alkaline Phosphatase 114 (45-117) U/L Albumin 2.4 L (3.4-5.0) gm/dl Medications Administered Current Inpatient Medications Albuterol (Duoneb) 3 ml NEB Q4R PRN PRN Reason: Shortness Of Breath Or Wheezing Stop: 04/29/19 13:02 Albuterol (Combivent Respimat) 1 puffs INH QID [facility] Stop: 05/03/19 08:59 Last Admin: 04/03/19 12:50 Dose: 1 puffs Documented by: Amitriptyline HCl (Elavil) 100 mg PO HS [facility] Stop: 05/01/19 20:59 Last Admin: 04/02/19 19:32 Dose: 100 mg Documented by: Amlodipine Besylate (Norvasc) 2.5 mg PO DAILY [facility] Stop: 04/30/19 08:59 Last Admin: 04/03/19 08:18 Dose: 2.5 mg Documented by: Dextrose (Dextrose 50%) 25 - 50 ml IV UD PRN; Protocol PRN Reason: Hypoglycemia Protocol Stop: 04/30/19 08:40 Gabapentin (Neurontin) 900 mg PO HS [facility] Stop: 04/29/19 20:59 Last Admin: 04/02/19 19:33 Dose: 900 mg Documented by: Glucagon (Glucagen) 1 mg SQ UD PRN; Protocol PRN Reason: Hypoglycemia Protocol Stop: 04/30/19 08:40 Glucose (Glucose 40%) 15 - 30 gm PO UD PRN; Protocol PRN Reason: Hypoglycemia Protocol Stop: 04/30/19 08:40 Glucose (Dex4 Glucose) 4 - 8 tabs PO UD PRN; Protocol PRN Reason: Hypoglycemia Protocol Stop: 04/30/19 08:40 Heparin Sodium (Porcine) (Heparin Sodium (Porcine)) 5,000 units SQ Q8 [facility] Stop: 04/29/19 13:59 Last Admin: 04/03/19 13:42 Dose: Not Given Documented by: Insulin Aspart (Novolog Flexpen) 0 units SC ACHS [facility] Stop: 04/30/19 19:44 Last Admin: 04/03/19 12:54 Dose: 5 units Documented by: Insulin Glargine (Lantus Solostar Pen) 6 units SC BID [facility] Stop: 05/02/19 08:59 Last Admin: 04/03/19 08:24 Dose: 6 units Documented by: Levofloxacin (Levaquin) 750 mg PO DAILY@1100 [facility] Stop: 04/10/19 15:59 Mirtazapine (Remeron) 30 mg PO HS [facility] Stop: 05/01/19 20:59 Last Admin: 04/02/19 19:33 Dose: 30 mg Documented by: Miscellaneous (Remove Nicoderm Patch) 1 ea N/A [facility] Stop: 04/29/19 20:59 Last Admin: 04/02/19 19:33 Dose: 1 ea Documented by: Miscellaneous (Carbohydrates For Hypoglycemia) 15 - 30 gm PO UD PRN PRN Reason: Hypoglycemia Treatment Stop: 04/30/19 08:40 Nicotine (Nicoderm Cq) 14 mg TD QAM [facility] Stop: 04/29/19 16:59 Last Admin: 04/03/19 08:19 Dose: 14 mg Documented by: Oxycodone HCl (Roxicodone Immediate Rel) 10 mg PO Q4H PRN PRN Reason: Pain Stop: 04/13/19 20:52 Last Admin: 04/03/19 12:13 Dose: 10 mg Documented by: Prednisone (Prednisone) 40 mg PO DAILY [facility] Stop: 05/01/19 08:59 Last Admin: 04/03/19 08:17 Dose: 40 mg Documented by: Psyllium Hydrophilic Mucilloid (Metamucil) 1 pkt PO QAM [facility] Stop: 05/01/19 19:14 Last Admin: 04/03/19 08:18 Dose: Not Given Documented by: Fluticasone/Salmeterol (Advair Diskus 250/50) 1 puffs INH BID [facility] Stop: 04/29/19 20:59 Last Admin: 04/03/19 08:18 Dose: 1 puffs Documented by: Tizanidine HCl (Zanaflex) 12 mg PO DAILY@1999 [facility] Stop: 05/03/19 19:59 (1) Respiratory failure Chronicity: unspecified Respiratory failure complication: hypoxia Qualified Code(s): J96.91 - Respiratory failure, unspecified with hypoxia (2) PNA (pneumonia) Laterality: right Lung location: lower lobe of lung Pneumonia type: due to unspecified organism Qualified Code(s): J18.1 - Lobar pneumonia, unspecified organism
[2019-04-03] MEDS: levoFLOXacin 750 MG TAB PO SCH (16:39)
[2019-04-03] MEDS: TIZANIDINE HCL 4 MG TABLET PO SCH (20:08)
[2019-04-03] MEDS: GABAPENTIN 300 MG CAP PO SCH (20:09)
[2019-04-03] MEDS: AMITRIPTYLINE HCL 100 MG TAB PO SCH (20:10)
[2019-04-03] MEDS: MIRTAZAPINE TAB 15 MG TAB PO SCH (20:11)
[2019-04-03] MEDS ORDERED: clonazePAM 1 MG TAB PO PRN (21:00)
[2019-04-03] MEDS: clonazePAM 1 MG TAB PO PRN (22:12)
[2019-04-04] MEDS: HEPARIN SOD 5,000 UNIT/0.5 ML VIAL SQ SCH ×3 (06:06→21:05)
[2019-04-04] MEDS: INSULIN ASPART 100 UNITS/ML 3 ML PEN SC SCH ×4 (08:38→21:04)
[2019-04-04] MEDS: OXYCODONE HCL IR 5 MG TAB (IMMEDIATE RELEASE) PO PRN ×2 (09:11→18:02)
[2019-04-04] MEDS: AMLODIPINE BESYLATE 5 MG TAB PO SCH (09:12)
[2019-04-04] MEDS: predniSONE 20 MG TAB PO SCH (09:13)
[2019-04-04] MEDS: IPRATROPIUM BROMIDE/ALBUTEROL respimat INH INH SCH ×4 (09:14→20:43)
[2019-04-04] MEDS: PSYLLIUM 58.6% POWDER PACKET PO SCH (09:14)
[2019-04-04] MEDS: FLUTICASONE/SALMETEROL 250/50 (ADVAIR) 14 PUFF/1 INHALER INH SCH ×2 (09:14→20:43)
[2019-04-04] MEDS: NICOTINE 14 MG/24 HR PATCH TD SCH (09:16)
[2019-04-04] MEDS: INSULIN GLARGINE SOLOSTAR 100 UNITS/ML 3 ML PEN SC SCH ×2 (09:18→21:04)
--- NOTE | 2019-04-04 09:30 | XRay Report ---
XR chest 2V routine CLINICAL HISTORY: 64 years-old Female presenting with Pneumonia. TECHNIQUE: Portable upright AP view of the chest was obtained. COMPARISON: 03/30/2019. FINDINGS: Atherosclerosis of the aortic arch. Cardiac silhouette normal in size. Patchy opacities in the right mid to lower lung increased from prior. The appearance of the upper lobes is unchanged. Trace left ef fusion may be present. No pneumothorax. Osteopenia. Posttraumatic deformity of the left humeral neck. Degenerative changes of the spine. Upper abdomen normal. IMPRESSION: 1. Increased right mid to basilar patchy opacities may represent worsening of multifocal pneumonia o r increased atelectasis. 2. Unchanged radiographic appearance of the upper lobes. The presence of multifocal infiltrates were better demonstrated on CT from 03/30/2019. Electronically signed by: Marcial Matamoros M.D. 04/04/2019 9:29 AM
[2019-04-04] MEDS: levoFLOXacin 750 MG TAB PO SCH (11:33)
--- NOTE | 2019-04-04 13:58 | Hospitalist Progress Note ---
Date of Service April 04, 2019 Assessment & Plan (1) Respiratory failure: Secondary to COPD exacerbation complicated by multilobar pneumonia Management is as below Clinically a lot better (2) PNA (pneumonia): Has multilobar pneumonia on CAT scan Appreciate pulmonary input and recommendation Clinically not better Blood cultures have been negative We will change antibiotic to Levaquin only Clinically a lot better and will continue oral Levaquin Will check chest x-ray PA and lateral view tomorrow PT and OT evaluation and possible discharge in a day or 2 Chest x-ray showed increasing atelectasis and/or infiltration but clinically the patient is much better (3) Sepsis: Pt with hx MS, COPD, tobacco use presented to ER for fall and was found to be hypoxic with O2 sat in 60's on RA by EMS and was brought to ER. Sepsis as met SIRS criteria with tachycardia, tachypnea, lactic acidosis and infiltrate on CXR. Community acquired pneumonia. Has been on IV Zosyn - Day 4 CTA CHEST- No PE, Multifocal pneumonia, Mucus plugging, Moderate compression deformities at T12 and L1. l1- New compression deformity. CXR: Infiltrate at the right lung base concerning for pneumonia. Developing edema considered less likely given the asymmetry. Volume overload with congestive change. Bilateral hilar prominence likely vascular in etiology or less likely lymphadenopathy. Possible underlying chronic and/or obstructive lung disease. MRSA - neg Blood cultures -negative Pulmonary consulted-appreciate input and recommendation We will change antibiotic to oral Levaquin Improved a lot (4) Elevated troponin: Trending down Troponin: 0.3. EKG without acute changes. No CP reported. Likely demand ischemia secondary to sepsis, pneumonia, hypoxia -Troponin- 0.305--> 0.206--> 0.174 -Echo- EF - 65-70%, No regional wall motion abnormalities -No acute cardiac symptoms (5) Acute kidney injury: RESOLVED Cr: 1.26. Baseline Cr: ~0.7, near baseline now It is reported pt not eating and drinking over past 24 hours -On IVF---> Will discontinue IVF -avoid nephrotoxic agents when possible -Creatinine has been normalized (6) Elevated LFTs: TRENDING DOWN Unclear etiology, likely secondary to sepsis Total bili:0.6, AST: 340, ALT: 241, Alk Phos:106 on admission Denies abdominal pain. May be secondary to sepsis -Monitor LFTs-LFTs are improving further -LFTs normal (7) Hyperglycemia: NEW ONSET DIABETES MELLITUS HBA1C 7.1 -ISS, Accuchecks added. Insulin Lantus 6 units added as on steroids -Will need to consider starting Metformin on discharge -Counseling done (8) COPD (chronic obstructive pulmonary disease): Not on oxygen at home -continue Advair -Duonebs QID -Bipap, supplemental oxygen -Change IV solumedrol 40 mg daily to prednisone 40 mg x 5 days to help with pneu monia and wheezing while in ED -We will take a few days to improve -Clinically improved (9) Multiple sclerosis: Continue her home medications the way she was taking before (10) Restless leg syndrome: Hx MS, RLS, chronic right hemiparesis. Follows with Dr Alatorre -neurology -Currently holding Zanaflex, Gabapentine, Amitriptyline, Oxycodone and reassess mental status with BIPAP Complains to have bilateral leg pain We will continue with her usual home medications and apply moist heat (11) HTN (hypertension): Stable -Amlodipine to be continued (12) Depression: (13) Anxiety: -Currently holding Doxepin, mirtazapine and reassess this afternoon/evening (14) Tobacco use: -Encourage smoking cessation -Nicotine patch DVT Prophylaxis -Heparin SQ DISPOSITION Continue with PCU monitoring Full Code as per discussion with pt and pt's Subjective 04/01 The patient was seen and examined in the telemetry unit Pt is 64 y/o F COPD not on oxygen, multiple sclerosis, depression, anxiety, insomnia, RLS, chronic right hemiparesis, tobacco use presented to ER for hypoxia. Noted to have multifocal pneumonia on CAT scan of the chest Has shortness of breath and generalized weakness Complaint history of pain in the legs which has been chronic 04/02 The patient was seen and examined in telemetry unit She has been feeling a lot better Still has some shortness of breath and cough And her leg pain is improved 04/03 The patient was seen and examined in medical telemetry unit She complains to have back pain and did not get her pain medications She also complained to have muscle spasm and did not get her Zanaflex Denies any increasing shortness of breath, denies any abdominal pain, nausea no vomiting 04/04 Patient was seen and examined in medical floor He complains to have lack of sleep last night due to not getting the sleep medication Her breathing is much better and complains some pain in the legs Review of Systems Review of Systems: All systems reviewed and are unremarkable except as noted below Constitutional: + fatigue, + weakness, + anorexia and + insomnia Respiratory: + cough, + dyspnea and + wheezing Neurologic: + generalized weakness and + restless legs Psychiatric: + depression Physical Exam Physical Exam: Minimal distress at rest Constitutional: well developed and + ill appearing Eyes: PERRL, conjunctivae normal, anicteric sclerae ENMT: external ear and nose normal, oropharynx normal Neck: trachea midline, no thyromegaly Respiratory: + respiratory distress (Minimal distress at rest) and + uses accessory muscles Auscultation: + diminished lung sounds, + crackles (Both bases) and + wheezes Cardiovascular: Rate/Rhythm: regular rate and regular rhythm Heart Sounds: normal S1 and normal S2 Gastrointestinal (Abdomen): Inspection/Auscultation: abdomen normal to inspection and normal bowel sounds Percussion/Palpation: abdomen soft; abdomen nontender Musculoskeletal: Bilateral neck pain without any acute arthritis in any joints Neurologic: moves all extremities; no focal motor deficits Alert, awake and pleasantly confused. Moving all limbs equally Lymphatic: no cervical or axillary lymphadenopathy Results & Data Vital Signs (Past 12 Hours) Vital Signs Temp Pulse Resp BP Pulse Ox 04/04/19 07:55 36.8 C 80 20 163/92 H 92 Medications Administered Current Inpatient Medications Albuterol (Duoneb) 3 ml NEB Q4R PRN PRN Reason: Shortness Of Breath Or Wheezing Stop: 04/29/19 13:02 Albuterol (Combivent Respimat) 1 puffs INH QID [facility] Stop: 05/03/19 08:59 Last Admin: 04/04/19 12:46 Dose: Not Given Documented by: Amitriptyline HCl (Elavil) 100 mg PO HS [facility] Stop: 05/01/19 20:59 Last Admin: 04/03/19 20:10 Dose: 100 mg Documented by: Amlodipine Besylate (Norvasc) 2.5 mg PO DAILY [facility] Stop: 04/30/19 08:59 Last Admin: 04/04/19 09:12 Dose: 2.5 mg Documented by: Clonazepam (Klonopin) 1 mg PO TID PRN PRN Reason: RLS Stop: 05/03/19 20:59 Last Admin: 04/04/19 01:44 Dose: 1 mg Documented by: Clonazepam (Klonopin) 2 mg PO HS PRN PRN Reason: RLS Stop: 05/03/19 22:01 Last Admin: 04/03/19 22:12 Dose: 2 mg Documented by: Dextrose (Dextrose 50%) 25 - 50 ml IV UD PRN; Protocol PRN Reason: Hypoglycemia Protocol Stop: 04/30/19 08:40 Gabapentin (Neurontin) 900 mg PO HS [facility] Stop: 04/29/19 20:59 Last Admin: 04/03/19 20:09 Dose: 900 mg Documented by: Glucagon (Glucagen) 1 mg SQ UD PRN; Protocol PRN Reason: Hypoglycemia Protocol Stop: 04/30/19 08:40 Glucose (Glucose 40%) 15 - 30 gm PO UD PRN; Protocol PRN Reason: Hypoglycemia Protocol Stop: 04/30/19 08:40 Glucose (Dex4 Glucose) 4 - 8 tabs PO UD PRN; Protocol PRN Reason: Hypoglycemia Protocol Stop: 04/30/19 08:40 Heparin Sodium (Porcine) (Heparin Sodium (Porcine)) 5,000 units SQ Q8 [facility] Stop: 04/29/19 13:59 Last Admin: 04/04/19 06:06 Dose: 5,000 units Documented by: Insulin Aspart (Novolog Flexpen) 0 units SC ACHS [facility] Stop: 04/30/19 19:44 Last Admin: 04/04/19 12:45 Dose: 3 units Documented by: Insulin Glargine (Lantus Solostar Pen) 6 units SC BID [facility] Stop: 05/02/19 08:59 Last Admin: 04/04/19 09:18 Dose: 6 units Documented by: Levofloxacin (Levaquin) 750 mg PO DAILY@1100 [facility] Stop: 04/10/19 15:59 Last Admin: 04/04/19 11:33 Dose: 750 mg Documented by: Mirtazapine (Remeron) 30 mg PO HS [facility] Stop: 05/01/19 20:59 Last Admin: 04/03/19 20:11 Dose: 30 mg Documented by: Miscellaneous (Remove Nicoderm Patch) 1 ea N/A HS [facility] Stop: 04/29/19 20:59 Last Admin: 04/03/19 20:11 Dose: 1 ea Documented by: Miscellaneous (Carbohydrates For Hypoglycemia) 15 - 30 gm PO UD PRN PRN Reason: Hypoglycemia Treatment Stop: 04/30/19 08:40 Miscellaneous (Order Awaiting Action) 1 ea N/A QS [facility] Stop: 05/04/19 15:59 Nicotine (Nicoderm Cq) 14 mg TD QAM [facility] Stop: 04/29/19 16:59 Last Admin: 04/04/19 09:16 Dose: 14 mg Documented by: Oxycodone HCl (Roxicodone Immediate Rel) 10 mg PO Q4H PRN PRN Reason: Pain Stop: 04/13/19 20:52 Last Admin: 04/04/19 09:11 Dose: 10 mg Documented by: Prednisone (Prednisone) 40 mg PO DAILY [facility] Stop: 05/01/19 08:59 Last Admin: 04/04/19 09:13 Dose: 40 mg Documented by: Psyllium Hydrophilic Mucilloid (Metamucil) 1 pkt PO QAM [facility] Stop: 05/01/19 19:14 Last Admin: 04/04/19 09:14 Dose: Not Given Documented by: Fluticasone/Salmeterol (Advair Diskus 250/50) 1 puffs INH BID [facility] Stop: 04/29/19 20:59 Last Admin: 04/04/19 09:14 Dose: 1 puffs Documented by: Tizanidine HCl (Zanaflex) 12 mg PO DAILY@1999 [facility] Stop: 05/03/19 19:59 Last Admin: 04/03/19 20:08 Dose: 12 mg Documented by: (1) Respiratory failure Chronicity: unspecified Respiratory failure complication: hypoxia Qualified Code(s): J96.91 - Respiratory failure, unspecified with hypoxia (2) PNA (pneumonia) Laterality: right Lung location: lower lobe of lung Pneumonia type: due to unspecified organism Qualified Code(s): J18.1 - Lobar pneumonia, unspecified organism
[2019-04-04] MEDS ORDERED: DOXEPIN 6 MG SCH (16:00)
[2019-04-04] MEDS: TIZANIDINE HCL 4 MG TABLET PO SCH (20:39)
[2019-04-04] MEDS: MIRTAZAPINE TAB 15 MG TAB PO SCH (20:40)
[2019-04-04] MEDS: GABAPENTIN 300 MG CAP PO SCH (20:40)
[2019-04-04] MEDS: AMITRIPTYLINE HCL 100 MG TAB PO SCH (20:41)
[2019-04-04] MEDS: SILENOR 6 MG PO SCH (20:42)
[2019-04-04] MEDS: clonazePAM 1 MG TAB PO PRN (21:00)
[2019-04-05] MEDS: HEPARIN SOD 5,000 UNIT/0.5 ML VIAL SQ SCH ×3 (04:45→20:34)
[2019-04-05] MEDS: OXYCODONE HCL IR 5 MG TAB (IMMEDIATE RELEASE) PO PRN ×3 (06:10→20:28)
[2019-04-05 06:45] LABS: Hematocrit (blood only) 40.4 % (37-47); Hemoglobin 13.7 g/dL (12.0-16.0); Mean Corpuscular Hgb Conc 33.9 g/dL (32-36); Mean Platelet Volume 9.6 fL (7.4-10.4); Platelet Count 217 K/uL (130-400); RDW Coefficient of Variation 14.5 % (11.5-14.5); RDW Standard Deviation 44.8 fL (36.4-46.3); Red Blood Count 4.81 M/uL (4.2-5.4); White Blood Count 11.52 K/uL (4.8-10.8)
[2019-04-05 07:13] LABS: Alanine Aminotransferase 98 U/L (12-78); Albumin Level 2.8 gm/dl (3.4-5.0); Aspartate Aminotransferase 28 U/L (15-37); BUN Creatinine Ratio 37.8 (10-20); Bilirubin Direct < 0.1 mg/dl (0-0.2); Blood Urea Nitrogen 28 mg/dl (7-18); Carbon Dioxide 27 mmol/L (21-32); Chloride 106 mmol/L (98-107); Creatinine Clr Calc Pharmacy 67.9 ml/min; Est GFR (African American) 100.6; Est GFR (Non-African American) 86.8; Glucose 102 mg/dl (70-99); Magnesium 2.5 mg/dl (1.8-2.4); Potassium 3.5 mmol/L (3.5-5.1); Sodium 139 mmol/L (136-145)
[2019-04-05 07:16] LABS: Alkaline Phosphatase 114 U/L (45-117); Bilirubin,Total 0.4 mg/dl (0.2-1); Phosphorus 3.6 mg/dl (2.5-4.9); Total Protein 7.2 gm/dl (6.4-8.2)
[2019-04-05 07:39] LABS: ALC (manual) 3.16 K/uL (1.2-3.4); Lymphocytes # (manual) 3.16 K/uL (1.2-3.4); Lymphocytes % (manual) 27.4 %; Metamyelocytes # (manual) 0.92 K/uL (0-0); Monocytes # (manual) 0.21 K/uL (0.11-0.59); Monocytes % (manual) 1.8 %; Myelocytes # (manual) 1.22 K/uL (0-0); Myelocytes % (manual) 10.6 %; Neutrophils % (manual) 52.2 %; RBC Morphology Unremarkable
[2019-04-05] MEDS: IPRATROPIUM BROMIDE/ALBUTEROL respimat INH INH SCH ×4 (08:02→20:22)
[2019-04-05] MEDS: PSYLLIUM 58.6% POWDER PACKET PO SCH (08:02)
[2019-04-05] MEDS: FLUTICASONE/SALMETEROL 250/50 (ADVAIR) 14 PUFF/1 INHALER INH SCH ×2 (08:02→20:22)
[2019-04-05] MEDS: NICOTINE 14 MG/24 HR PATCH TD SCH (08:02)
[2019-04-05] MEDS: AMLODIPINE BESYLATE 5 MG TAB PO SCH (08:03)
[2019-04-05] MEDS: predniSONE 20 MG TAB PO SCH (08:03)
[2019-04-05] MEDS: INSULIN GLARGINE SOLOSTAR 100 UNITS/ML 3 ML PEN SC SCH ×2 (08:06→20:31)
[2019-04-05] MEDS: INSULIN ASPART 100 UNITS/ML 3 ML PEN SC SCH ×4 (08:07→20:31)
[2019-04-05] MEDS: levoFLOXacin 750 MG TAB PO SCH (11:40)
--- NOTE | 2019-04-05 13:03 | Hospitalist Progress Note ---
Date of Service April 05, 2019 Assessment & Plan (1) Respiratory failure: Secondary to COPD exacerbation complicated by multilobar pneumonia Management is as below Clinically a lot better (2) PNA (pneumonia): Has multilobar pneumonia on CAT scan Appreciate pulmonary input and recommendation Clinically not better Blood cultures have been negative We will change antibiotic to Levaquin only Clinically a lot better and will continue oral Levaquin Will check chest x-ray PA and lateral view tomorrow PT and OT evaluation and possible discharge in a day or 2 Chest x-ray showed increasing atelectasis and/or infiltration but clinically the patient is much better Clinically a lot better and will finish total 10 days of antibiotic (3) Sepsis: Pt with hx MS, COPD, tobacco use presented to ER for fall and was found to be hypoxic with O2 sat in 60's on RA by EMS and was brought to ER. Sepsis as met SIRS criteria with tachycardia, tachypnea, lactic acidosis and infiltrate on CXR. Community acquired pneumonia. Has been on IV Zosyn - Day 4 CTA CHEST- No PE, Multifocal pneumonia, Mucus plugging, Moderate compression deformities at T12 and L1. l1- New compression deformity. CXR: Infiltrate at the right lung base concerning for pneumonia. Developing edema considered less likely given the asymmetry. Volume overload with congestive change. Bilateral hilar prominence likely vascular in etiology or less likely lymphadenopathy. Possible underlying chronic and/or obstructive lung disease. MRSA - neg Blood cultures -negative Pulmonary consulted-appreciate input and recommendation We will change antibiotic to oral Levaquin (4) Elevated troponin: Trending down Troponin: 0.3. EKG without acute changes. No CP reported. Likely demand ischemia secondary to sepsis, pneumonia, hypoxia -Troponin- 0.305--> 0.206--> 0.174 -Echo- EF - 65-70%, No regional wall motion abnormalities -No acute cardiac symptoms (5) Acute kidney injury: RESOLVED Cr: 1.26. Baseline Cr: ~0.7, near baseline now It is reported pt not eating and drinking over past 24 hours -On IVF---> Will discontinue IVF -avoid nephrotoxic agents when possible -Creatinine has been normalized and electrolytes are unremarkable (6) Elevated LFTs: TRENDING DOWN Unclear etiology, likely secondary to sepsis Total bili:0.6, AST: 340, ALT: 241, Alk Phos:106 on admission Denies abdominal pain. May be secondary to sepsis -Monitor LFTs-LFTs are improving further -LFTs are almost normalized (7) Hyperglycemia: NEW ONSET DIABETES MELLITUS HBA1C 7.1 -ISS, Accuchecks added. Insulin Lantus 6 units added as on steroids -Will need to consider starting Metformin on discharge -Counseling done (8) COPD (chronic obstructive pulmonary disease): Not on oxygen at home -continue Advair -Duonebs QID -Bipap, supplemental oxygen -Change IV solumedrol 40 mg daily to prednisone 40 mg x 5 days to help with pneumonia and wheezing while in ED -We will take a few days to improve -Clinically improved (9) Multiple sclerosis: Continue her home medications the way she was taking before (10) Restless leg syndrome: Hx MS, RLS, chronic right hemiparesis. Follows with Dr Alatorre -neurology -Currently holding Zanaflex, Gabapentine, Amitriptyline, Oxycodone and reassess mental status with BIPAP Complains to have bilateral leg pain We will continue with her usual home medications and apply moist heat (11) HTN (hypertension): Stable -Amlodipine to be continued (12) Depression: (13) Anxiety: -Currently holding Doxepin, mirtazapine and reassess this afternoon/evening (14) Tobacco use: -Encourage smoking cessation -Nicotine patch DVT Prophylaxis -Heparin SQ DISPOSITION Continue with PCU monitoring Full Code as per discussion with pt and pt's Likely discharge tomorrow following physical therapy evaluation Subjective 04/01 The patient was seen and examined in the telemetry unit Pt is 64 y/o F COPD not on oxygen, multiple sclerosis, depression, anxiety, insomnia, RLS, chronic right hemiparesis, tobacco use presented to ER for hypoxia. Noted to have multifocal pneumonia on CAT scan of the chest Has shortness of breath and generalized weakness Complaint history of pain in the legs which has been chronic 04/02 The patient was seen and examined in telemetry unit She has been feeling a lot better Still has some shortness of breath and cough And her leg pain is improved 04/03 The patient was seen and examined in medical telemetry unit She complains to have back pain and did not get her pain medications She also complained to have muscle spasm and did not get her Zanaflex Denies any increasing shortness of breath, denies any abdominal pain, nausea no vomiting 04/04 Patient was seen and examined in medical floor He complains to have lack of sleep last night due to not getting the sleep medication Her breathing is much better and complains some pain in the legs 04/05 Patient was seen and examined in medical telemetry unit She is out of bed on a chair and denies any significant symptoms Has not had any formal physical therapy yet She will likely be discharged tomorrow Review of Systems Review of Systems: All systems reviewed and are unremarkable except as noted below Constitutional: + weakness and + insomnia Respiratory: + cough Neurologic: + generalized weakness and + restless legs Psychiatric: + depression Physical Exam Physical Exam: No apparent distress at rest Constitutional: well developed and + ill appearing Eyes: PERRL, conjunctivae normal, anicteric sclerae ENMT: external ear and nose normal, oropharynx normal Neck: trachea midline, no thyromegaly Respiratory: normal respiratory effort Auscultation: + diminished lung sounds, + crackles (Both bases-improved a lot) and + wheezes (Almost gone) Cardiovascular: Rate/Rhythm: regular rate and regular rhythm Heart Sounds: normal S1 and normal S2 Gastrointestinal (Abdomen): Inspection/Auscultation: abdomen normal to inspection and normal bowel sounds Percussion/Palpation: abdomen soft; abdomen nontender Neurologic: moves all extremities; no focal motor deficits Lymphatic: no cervical or axillary lymphadenopathy Results & Data Vital Signs (Past 12 Hours) Vital Signs Temp Pulse Resp BP Pulse Ox 04/05/19 12:00 37.1 C 87 21 146/78 H 93 Laboratory Results Short CBC 04/05/19 Range/Units 06:19 WBC 11.52 H (4.8-10.8) K/uL Hgb 13.7 (12.0-16.0) g/dL Hct 40.4 (37-47) % Plt Count 217 (130-400) K/uL BMP 04/05/19 06:19 Sodium 139 Potassium 3.5 Chloride 106 Carbon Dioxide 27 BUN 28 H Creatinine 0.74 Glucose 102 H Calcium 9.0 Liver Function 04/05/19 Range/Units 06:19 Total Bilirubin 0.4 (0.2-1) mg/dl Direct Bilirubin < 0.1 (0-0.2) mg/dl AST 28 (15-37) U/L ALT 98 H (12-78) U/L Alkaline Phosphatase 114 (45-117) U/L Albumin 2.8 L (3.4-5.0) gm/dl Medications Administered Current Inpatient Medications Albuterol (Duoneb) 3 ml NEB Q4R PRN PRN Reason: Shortness Of Breath Or Wheezing Stop: 04/29/19 13:02 Albuterol (Combivent Respimat) 1 puffs INH QID [facility] Stop: 05/03/19 08:59 Last Admin: 04/05/19 12:06 Dose: 1 puffs Documented by: Amitriptyline HCl (Elavil) 100 mg PO HS [facility] Stop: 05/01/19 20:59 Last Admin: 04/04/19 20:41 Dose: 100 mg Documented by: Amlodipine Besylate (Norvasc) 2.5 mg PO DAILY [facility] Stop: 04/30/19 08:59 Last Admin: 04/05/19 08:03 Dose: 2.5 mg Documented by: Clonazepam (Klonopin) 1 mg PO TID PRN PRN Reason: RLS Stop: 05/03/19 20:59 Last Admin: 04/04/19 01:44 Dose: 1 mg Documented by: Clonazepam (Klonopin) 2 mg PO HS PRN PRN Reason: RLS Stop: 05/03/19 22:01 Last Admin: 04/04/19 21:00 Dose: 2 mg Documented by: Dextrose (Dextrose 50%) 25 - 50 ml IV UD PRN; Protocol PRN Reason: Hypoglycemia Protocol Stop: 04/30/19 08:40 Gabapentin (Neurontin) 900 mg PO HS [facility] Stop: 04/29/19 20:59 Last Admin: 04/04/19 20:40 Dose: 900 mg Documented by: Glucagon (Glucagen) 1 mg SQ UD PRN; Protocol PRN Reason: Hypoglycemia Protocol Stop: 04/30/19 08:40 Glucose (Glucose 40%) 15 - 30 gm PO UD PRN; Protocol PRN Reason: Hypoglycemia Protocol Stop: 04/30/19 08:40 Glucose (Dex4 Glucose) 4 - 8 tabs PO UD PRN; Protocol PRN Reason: Hypoglycemia Protocol Stop: 04/30/19 08:40 Heparin Sodium (Porcine) (Heparin Sodium (Porcine)) 5,000 units SQ Q8 [facility] Stop: 04/29/19 13:59 Last Admin: 04/05/19 04:45 Dose: Not Given Documented by: Insulin Aspart (Novolog Flexpen) 0 units SC ACHS [facility] Stop: 04/30/19 19:44 Last Admin: 04/05/19 12:05 Dose: 9 units Documented by: Insulin Glargine (Lantus Solostar Pen) 6 units SC BID [facility] Stop: 05/02/19 08:59 Last Admin: 04/05/19 08:06 Dose: 6 units Documented by: Levofloxacin (Levaquin) 750 mg PO DAILY@1100 [facility] Stop: 04/10/19 15:59 Last Admin: 04/05/19 11:40 Dose: 750 mg Documented by: Mirtazapine (Remeron) 30 mg PO [facility] Stop: 05/01/19 20:59 Last Admin: 04/04/19 20:40 Dose: 30 mg Documented by: Miscellaneous (Remove Nicoderm Patch) 1 ea N/A [facility] Stop: 04/29/19 20:59 Last Admin: 04/04/19 21:18 Dose: 1 ea Documented by: Miscellaneous (Carbohydrates For Hypoglycemia) 15 - 30 gm PO UD PRN PRN Reason: Hypoglycemia Treatment Stop: 04/30/19 08:40 Nicotine (Nicoderm Cq) 14 mg TD QAM [facility] Stop: 04/29/19 16:59 Last Admin: 04/05/19 08:02 Dose: 14 mg Documented by: Silenor 6mg Tablet~ Non-Formulary Patient's Own Med 1 ea PO [facility] Stop: 05/04/19 20:59 Last Admin: 04/04/19 20:42 Dose: 1 mg Documented by: Oxycodone HCl (Roxicodone Immediate Rel) 10 mg PO Q4H PRN PRN Reason: Pain Stop: 04/13/19 20:52 Last Admin: 04/05/19 06:10 Dose: 10 mg Documented by: Prednisone (Prednisone) 40 mg PO DAILY [facility] Stop: 05/01/19 08:59 Last Admin: 04/05/19 08:03 Dose: 40 mg Documented by: Psyllium Hydrophilic Mucilloid (Metamucil) 1 pkt PO QAM [facility] Stop: 05/01/19 19:14 Last Admin: 04/05/19 08:02 Dose: Not Given Documented by: Fluticasone/Salmeterol (Advair Diskus 250/50) 1 puffs INH BID [facility] Stop: 04/29/19 20:59 Last Admin: 04/05/19 08:02 Dose: 1 puffs Documented by: Tizanidine HCl (Zanaflex) 12 mg PO DAILY@1999 [facility] Stop: 05/03/19 19:59 Last Admin: 04/04/19 20:39 Dose: 12 mg Documented by: (1) Respiratory failure Chronicity: unspecified Respiratory failure complication: hypoxia Qualified Code(s): J96.91 - Respiratory failure, unspecified with hypoxia (2) PNA (pneumonia) Laterality: right Lung location: lower lobe of lung Pneumonia type: due to unspecified organism Qualified Code(s): J18.1 - Lobar pneumonia, unspecified organism
[2019-04-05] MEDS: MIRTAZAPINE TAB 15 MG TAB PO SCH (20:16)
[2019-04-05] MEDS: GABAPENTIN 300 MG CAP PO SCH (20:17)
[2019-04-05] MEDS: AMITRIPTYLINE HCL 100 MG TAB PO SCH (20:17)
[2019-04-05] MEDS: TIZANIDINE HCL 4 MG TABLET PO SCH (20:18)
[2019-04-05] MEDS: SILENOR 6 MG PO SCH (20:19)
[2019-04-05] MEDS: clonazePAM 1 MG TAB PO PRN (20:20)
[2019-04-06] MEDS: HEPARIN SOD 5,000 UNIT/0.5 ML VIAL SQ SCH ×2 (06:03→12:43)
[2019-04-06] MEDS: OXYCODONE HCL IR 5 MG TAB (IMMEDIATE RELEASE) PO PRN ×2 (07:45→12:49)
[2019-04-06] MEDS: FLUTICASONE/SALMETEROL 250/50 (ADVAIR) 14 PUFF/1 INHALER INH SCH (07:45)
[2019-04-06] MEDS: IPRATROPIUM BROMIDE/ALBUTEROL respimat INH INH SCH ×2 (07:46→12:43)
[2019-04-06] MEDS: PSYLLIUM 58.6% POWDER PACKET PO SCH (07:46)
[2019-04-06] MEDS: NICOTINE 14 MG/24 HR PATCH TD SCH (07:47)
[2019-04-06] MEDS: predniSONE 20 MG TAB PO SCH (07:47)
[2019-04-06] MEDS: AMLODIPINE BESYLATE 5 MG TAB PO SCH (07:47)
[2019-04-06] MEDS: INSULIN GLARGINE SOLOSTAR 100 UNITS/ML 3 ML PEN SC SCH (08:49)
[2019-04-06] MEDS: INSULIN ASPART 100 UNITS/ML 3 ML PEN SC SCH ×2 (08:50→12:44)
[2019-04-06] MEDS: levoFLOXacin 750 MG TAB PO SCH (11:14)
--- NOTE | 2019-04-06 11:31 | Hospitalist Progress Note ---
Date of Service April 06, 2019 Assessment & Plan (1) Respiratory failure: Secondary to COPD exacerbation complicated by multilobar pneumonia Management is as below Clinically a lot better Does not require any oxygen (2) PNA (pneumonia): Has multilobar pneumonia on CAT scan Appreciate pulmonary input and recommendation Clinically not better Blood cultures have been negative We will change antibiotic to Levaquin only Clinically a lot better and will continue oral Levaquin Will check chest x-ray PA and lateral view tomorrow PT and OT evaluation and possible discharge in a day or 2 Chest x-ray showed increasing atelectasis and/or infiltration but clinically the patient is much better Clinically a lot better and will finish total 10 days of antibiotic Denies any cough and/or shortness of breath (3) Sepsis: Pt with hx MS, COPD, tobacco use presented to ER for fall and was found to be hypoxic with O2 sat in 60's on RA by EMS and was brought to ER. Sepsis as met SIRS criteria with tachycardia, tachypnea, lactic acidosis and infiltrate on CXR. Community acquired pneumonia. Has been on IV Zosyn - Day 4 CTA CHEST- No PE, Multifocal pneumonia, Mucus plugging, Moderate compression deformities at T12 and L1. l1- New compression deformity. CXR: Infiltrate at the right lung base concerning for pneumonia. Developing edema considered less likely given the asymmetry. Volume overload with congestive change. Bilateral hilar prominence likely vascular in etiology or less likely lymphadenopathy. Possible underlying chronic and/or obstructive lung disease. MRSA - neg Blood cultures -negative Pulmonary consulted-appreciate input and recommendation We will change antibiotic to oral Levaquin (4) Elevated troponin: Trending down Troponin: 0.3. EKG without acute changes. No CP reported. Likely demand ischemia secondary to sepsis, pneumonia, hypoxia -Troponin- 0.305--> 0.206--> 0.174 -Echo- EF - 65-70%, No regional wall motion abnormalities -No acute cardiac symptoms (5) Acute kidney injury: RESOLVED Cr: 1.26. Baseline Cr: ~0.7, near baseline now It is reported pt not eating and drinking over past 24 hours -On IVF---> Will discontinue IVF -avoid nephrotoxic agents when possible -Creatinine has been normalized and electrolytes are unremarkable (6) Elevated LFTs: TRENDING DOWN Unclear etiology, likely secondary to sepsis Total bili:0.6, AST: 340, ALT: 241, Alk Phos:106 on admission Denies abdominal pain. May be secondary to sepsis -Monitor LFTs-LFTs are improving further -LFTs are almost normalized (7) Hyperglycemia: NEW ONSET DIABETES MELLITUS HBA1C 7.1 -ISS, Accuchecks added. Insulin Lantus 6 units added as on steroids -Will need to consider starting Metformin on discharge -Counseling done -Rapid tapering of steroid (8) COPD (chronic obstructive pulmonary disease): Not on oxygen at home -continue Advair -Duonebs QID -Bipap, supplemental oxygen -Change IV solumedrol 40 mg daily to prednisone 40 mg x 5 days to help with pn eumonia and wheezing while in ED -We will take a few days to improve -Clinically improved (9) Multiple sclerosis: Continue her home medications the way she was taking before (10) Restless leg syndrome: Hx MS, RLS, chronic right hemiparesis. Follows with Dr Alatorre -neurology -Currently holding Zanaflex, Gabapentine, Amitriptyline, Oxycodone and reassess mental status with BIPAP Complains to have bilateral leg pain We will continue with her usual home medications and apply moist heat (11) HTN (hypertension): Stable -Amlodipine to be continued (12) Depression: (13) Anxiety: -Currently holding Doxepin, mirtazapine and reassess this afternoon/evening (14) Tobacco use: -Encourage smoking cessation -Nicotine patch DVT Prophylaxis -Heparin SQ DISPOSITION Continue with PCU monitoring Full Code as per discussion with pt and pt's Likely to be discharged this afternoon Subjective 04/01 The patient was seen and examined in the telemetry unit Pt is 64 y/o F COPD not on oxygen, multiple sclerosis, depression, anxiety, insomnia, RLS, chronic right hemiparesis, tobacco use presented to ER for hypoxia. Noted to have multifocal pneumonia on CAT scan of the chest Has shortness of breath and generalized weakness Complaint history of pain in the legs which has been chronic 04/02 The patient was seen and examined in telemetry unit She has been feeling a lot better Still has some shortness of breath and cough And her leg pain is improved 04/03 The patient was seen and examined in medical telemetry unit She complains to have back pain and did not get her pain medications She also complained to have muscle spasm and did not get her Zanaflex Denies any increasing shortness of breath, denies any abdominal pain, nausea no vomiting 04/04 Patient was seen and examined in medical floor He complains to have lack of sleep last night due to not getting the sleep medication Her breathing is much better and complains some pain in the legs 04/05 Patient was seen and examined in medical telemetry unit She is out of bed on a chair and denies any significant symptoms Has not had any formal physical therapy yet She will likely be discharged tomorrow 04/06 The patient is seen and examined in medical telemetry unit She has been feeling a lot better She has been eating a lot and has been on prednisone Diabetic teaching education was given She is out of bed on a chair and will get physical therapy before she goes home today Review of Systems Review of Systems: All systems reviewed and are unremarkable except as noted below Constitutional: + weakness Respiratory: + cough; no dyspnea Neurologic: + generalized weakness and + restless legs Psychiatric: + depression Physical Exam Physical Exam: No apparent distress at rest Constitutional: well developed; no acute distress Eyes: PERRL, conjunctivae normal, anicteric sclerae ENMT: external ear and nose normal, oropharynx normal Neck: trachea midline, no thyromegaly Respiratory: normal respiratory effort Auscultation: + diminished lung sounds and + crackles (Minimal crackles at the right base) Cardiovascular: Rate/Rhythm: regular rate and regular rhythm Heart Sounds: normal S1 and normal S2 Gastrointestinal (Abdomen): Inspection/Auscultation: abdomen normal to inspection and normal bowel sounds Percussion/Palpation: abdomen soft; abdomen nontender Musculoskeletal: No acute arthritis in any of the joints Neurologic: moves all extremities; no focal motor deficits Lymphatic: no cervical or axillary lymphadenopathy Results & Data Vital Signs (Past 12 Hours) Vital Signs Temp Pulse Resp BP Pulse Ox 04/06/19 07:44 74 154/85 H 04/06/19 07:00 37 C 74 18 162/82 H 93 Medications Administered Current Inpatient Medications Albuterol (Duoneb) 3 ml NEB Q4R PRN PRN Reason: Shortness Of Breath Or Wheezing Stop: 04/29/19 13:02 Albuterol (Combivent Respimat) 1 puffs INH QID [facility] Stop: 05/03/19 08:59 Last Admin: 04/06/19 07:46 Dose: 1 puffs Documented by: Amitriptyline HCl (Elavil) 100 mg PO HS [facility] Stop: 05/01/19 20:59 Last Admin: 04/05/19 20:17 Dose: 100 mg Documented by: Amlodipine Besylate (Norvasc) 2.5 mg PO DAILY [facility] Stop: 04/30/19 08:59 Last Admin: 04/06/19 07:47 Dose: 2.5 mg Documented by: Clonazepam (Klonopin) 1 mg PO TID PRN PRN Reason: RLS Stop: 05/03/19 20:59 Last Admin: 04/04/19 01:44 Dose: 1 mg Documented by: Clonazepam (Klonopin) 2 mg PO HS PRN PRN Reason: RLS Stop: 05/03/19 22:01 Last Admin: 04/05/19 20:20 Dose: 2 mg Documented by: Dextrose (Dextrose 50%) 25 - 50 ml IV UD PRN; Protocol PRN Reason: Hypoglycemia Protocol Stop: 04/30/19 08:40 Gabapentin (Neurontin) 900 mg PO HS [facility] Stop: 04/29/19 20:59 Last Admin: 04/05/19 20:17 Dose: 900 mg Documented by: Glucagon (Glucagen) 1 mg SQ UD PRN; Protocol PRN Reason: Hypoglycemia Protocol Stop: 04/30/19 08:40 Glucose (Glucose 40%) 15 - 30 gm PO UD PRN; Protocol PRN Reason: Hypoglycemia Protocol Stop: 04/30/19 08:40 Glucose (Dex4 Glucose) 4 - 8 tabs PO UD PRN; Protocol PRN Reason: Hypoglycemia Protocol Stop: 04/30/19 08:40 Heparin Sodium (Porcine) (Heparin Sodium (Porcine)) 5,000 units SQ Q8 [facility] Stop: 04/29/19 13:59 Last Admin: 04/06/19 06:03 Dose: Not Given Documented by: Insulin Aspart (Novolog Flexpen) 0 units SC ACHS [facility] Stop: 04/30/19 19:44 Last Admin: 04/06/19 08:50 Dose: 6 units Documented by: Insulin Glargine (Lantus Solostar Pen) 6 units SC BID [facility] Stop: 05/02/19 08:59 Last Admin: 04/06/19 08:49 Dose: 6 units Documented by: Levofloxacin (Levaquin) 750 mg PO DAILY@1100 [facility] Stop: 04/10/19 15:59 Last Admin: 04/06/19 11:14 Dose: 750 mg Documented by: Mirtazapine (Remeron) 30 mg PO HS [facility] Stop: 05/01/19 20:59 Last Admin: 04/05/19 20:16 Dose: 30 mg Documented by: Miscellaneous (Remove Nicoderm Patch) 1 ea N/A HS [facility] Stop: 04/29/19 20:59 Last Admin: 04/05/19 20:53 Dose: 1 ea Documented by: Miscellaneous (Carbohydrates For Hypoglycemia) 15 - 30 gm PO UD PRN PRN Reason: Hypoglycemia Treatment Stop: 04/30/19 08:40 Nicotine [facility]oderm Cq) [facility] Stop: 04/29/19 16:59 Last Admin: 04/06/19 07:47 Dose: 14 mg Documented by: Silenor 6mg Tablet~ Non-Formulary Patient's Own Med 1 ea PO [facility] Stop: 05/04/19 20:59 Last Admin: 04/05/19 20:19 Dose: 6 mg Documented by: Oxycodone HCl (Roxicodone Immediate Rel) 10 mg PO Q4H PRN PRN Reason: Pain Stop: 04/13/19 20:52 Last Admin: 04/06/19 07:45 Dose: 10 mg Documented by: Prednisone (Prednisone) 40 mg PO DAILY [facility] Stop: 05/01/19 08:59 Last Admin: 04/06/19 07:47 Dose: 40 mg Documented by: Psyllium Hydrophilic Mucilloid (Metamucil) 1 pkt [facility] [place] Stop: 05/01/19 19:14 Last Admin: 04/06/19 07:46 Dose: Not Given Documented by: Fluticasone/Salmeterol (Advair Diskus 250/50) 1 puffs INH BID [facility] Stop: 04/29/19 20:59 Last Admin: 04/06/19 07:45 Dose: 1 puffs Documented by: Tizanidine HCl (Zanaflex) 12 mg PO DAILY@1999 [facility] Stop: 05/03/19 19:59 Last Admin: 04/05/19 20:18 Dose: 12 mg Documented by: (1) Respiratory failure Chronicity: unspecified Respiratory failure complication: hypoxia Qualified Code(s): J96.91 - Respiratory failure, unspecified with hypoxia (2) PNA (pneumonia) Laterality: right Lung location: lower lobe of lung Pneumonia type: due to unspecified organism Qualified Code(s): J18.1 - Lobar pneumonia, unspecified organism
--- NOTE | 2019-04-07 08:10 | Discharge Summary ---
Date of Service April 07, 2019 Admission HPI Per Admitting Provider Pt is 64 y/o F COPD not on oxygen, multiple sclerosis, depression, anxiety, insomnia, RLS, chronic right hemiparesis, tobacco use presented to ER for hypoxia. Some of history history obtained from patient and most of history from patient's . Patient's reports that he woke up at 7 AM today and found patient lying facedown on the floor near her bed. He states he tried to get her up into her wheelchair however patient felt limp and was not able to assist in transfer. He called EMS for lift assist. He notes that patient seemed confused and weak. EMS was able to get patient in chair and re ports patient was leaning to left side and wheelchair and was weak and was unable to use her wheelchair. Initially patient refused EMS transport to hospital. Reports history of recurrent falls which occur with transferring to and from wheelchair. Patient wheelchair-bound secondary to MS. Patient states that she does not think that she hit her head. reports no noted loss of control of bowel or bladder. He thinks that she fell a little bit when trying to transfer from bed to wheelchair but is unsure. States that pt stayed in bed most of yesterday which is unusual and she didn't eat or drink. Today EMS found patient to be hypoxic at 65% on room air. reports chronic cough and does not think has had increased cough. Patient reports chills and she reports nonproductive cough. Denies N/V/D/C, VERA, CP, SOB, abdominal pain, extremity edema, rashes, urinary symptoms. Further ROS difficult to obtain secondary to pt being on bipap. Admission Exam Per Admitting Provider Physical Exam: General: On bipap, pt appears uncomfortable with bipap mask is trying to readjust, WDWN Head: normocephalic, atraumatic Eyes: PERRL, EOM's intact, conjunctiva non-injected, anicteric ENT: normal inspection external ears, nose, mucous membranes dry Neck: supple, trachea midline, non-tender Lungs: On bipap with respirations 22, 96% O2 sat, no retractions, lungs diminished throughout CV: regular rhythm, tachycardic 102, no murmur, no pretibial edema Abd: normal BS, soft, non-tender Ext: no cyanosis, no calf tenderness Neuro: Alert, oriented to person, right arm and leg weakness (chronic), able to move left arm and left leg, some agitation with bipap mask Skin: warm, dry Principal Diagnosis Acute respiratory failure secondary to COPD exacerbation and complicated by pneumonia, multiple sclerosis Discharge Exam Constitutional well developed; no acute distress Eyes PERRL, conjunctivae normal, anicteric sclerae ENMT external ear and nose normal, oropharynx normal Neck trachea midline, no thyromegaly Respiratory normal respiratory effort Auscultation: + diminished lung sounds and + crackles (Minimal crackles at the right base) Cardiovascular Rate/Rhythm: regular rate and regular rhythm Heart Sounds: normal S1 and normal S2 Gastrointestinal (Abdomen) Inspection/Auscultation: abdomen normal to inspection and normal bowel sounds Percussion/Palpation: abdomen soft; abdomen nontender Neurologic moves all extremities; no focal motor deficits Lymphatic no cervical or axillary lymphadenopathy Discharge Data Allergies Allergy/AdvReac Type Severity Reaction Status Date / Time No Known Allergies Allergy Unknown Verified 03/30/19 09:50 Consultations 03/30/19 10:46 ED Decision to Admit Stat 03/30/19 13:03 Consult Case Management - Discharge Planning Routine Consult Pulmonology Routine Ordered Studies 03/30/19 10:44 CT angio chest PE protocol Stat 04/01/19 11:45 FL video swallow Routine 04/03/19 13:00 FL video swallow Routine Hospital Course (1) Respiratory failure: Secondary to COPD exacerbation complicated by multilobar pneumonia Management is as below Clinically a lot better Does not require any oxygen (2) PNA (pneumonia): Has multilobar pneumonia on CAT scan Appreciate pulmonary input and recommendation Clinically not better Blood cultures have been negative We will change antibiotic to Levaquin only Clinically a lot better and will continue oral Levaquin Will check chest x-ray PA and lateral view tomorrow PT and OT evaluation and possible discharge in a day or 2 Chest x-ray showed increasing atelectasis and/or infiltration but clinically the patient is much better Clinically a lot better and will finish total 10 days of antibiotic Denies any cough and/or shortness of breath (3) Sepsis: Pt with hx MS, COPD, tobacco use presented to ER for fall and was found to be hypoxic with O2 sat in 60's on RA by EMS and was brought to ER. Sepsis as met SIRS criteria with tachycardia, tachypnea, lactic acidosis and infiltrate on CXR. Community acquired pneumonia. Has been on IV Zosyn - Day 4 CTA CHEST- No PE, Multifocal pneumonia, Mucus plugging, Moderate compression deformities at T12 and L1. l1- New compression deformity. CXR: Infiltrate at the right lung base concerning for pneumonia. Developing edema considered less likely given the asymmetry. Volume overload with congestive change. Bilateral hilar prominence likely vascular in etiology or less likely lymphadenopathy. Possible underlying chronic and/or obstructive lung disease. MRSA - neg Blood cultures -negative Pulmonary consulted-appreciate input and recommendation We will change antibiotic to oral Levaquin (4) Elevated troponin: Trending down Troponin: 0.3. EKG without acute changes. No CP reported. Likely demand ischemia secondary to sepsis, pneumonia, hypoxia -Troponin- 0.305--> 0.206--> 0.174 -Echo- EF - 65-70%, No regional wall motion abnormalities -No acute cardiac symptoms (5) Acute kidney injury: RESOLVED Cr: 1.26. Baseline Cr: ~0.7, near baseline now It is reported pt not eating and drinking over past 24 hours -On IVF---> Will discontinue IVF -avoid nephrotoxic agents when possible -Creatinine has been normalized and electrolytes are unremarkable (6) Elevated LFTs: TRENDING DOWN Unclear etiology, likely secondary to sepsis Total bili:0.6, AST: 340, ALT: 241, Alk Phos:106 on admission Denies abdominal pain. May be secondary to sepsis -Monitor LFTs-LFTs are improving further -LFTs are almost normalized (7) Hyperglycemia: NEW ONSET DIABETES MELLITUS HBA1C 7.1 -ISS, Accuchecks added. Insulin Lantus 6 units added as on steroids -Will need to consider starting Metformin on discharge -Counseling done -Rapid tapering of steroid (8) COPD (chronic obstructive pulmonary disease): Not on oxygen at home -continue Advair -Duonebs QID -Bipap, supplemental oxygen -Change IV solumedrol 40 mg daily to prednisone 40 mg x 5 days to help with pneumonia and wheezing while in ED -We will take a few days to improve -Clinically improved (9) Multiple sclerosis: Continue her home medications the way she was taking before (10) Restless leg syndrome: Hx MS, RLS, chronic right hemiparesis. Follows with Dr Alatorre -neurology -Currently holding Zanaflex, Gabapentine, Amitriptyline, Oxycodone and reassess mental status with BIPAP Complains to have bilateral leg pain We will continue with her usual home medications and apply moist heat (11) HTN (hypertension): Stable -Amlodipine to be continued (12) Depression: (13) Anxiety: -Currently holding Doxepin, mirtazapine and reassess this afternoon/evening (14) Tobacco use: -Encourage smoking cessation -Nicotine patch DVT Prophylaxis -Heparin SQ DISPOSITION Continue with PCU monitoring Full Code as per discussion with pt and pt's Likely to be discharged this afternoon Total Time Total Time Spent Total Time Spent (In Minutes): 35 minutes Total Time Includes: Examination of the Patient, Discharge Planning, Medication Reconciliation and Communication With Other Providers Discharge Plan Discharge Items Patient Disposition: Home - Home Health Services Reason For Visit: ACUTE RESPIRATORY FAILURE Discharge Diagnosis: Acute respiratory failure secondary to COPD exacerbation and complicated by pneumonia, multiple sclerosis Condition: Fair Discharge Goals: Decrease discomfort, Improve function and Increase independence Activity: Resume your previous activity Non-emergency contact: Primary Care Provider Call non-emergency contact if: you have any medication questions and your symptoms worsen Follow-up/Referrals: Chuck Smith DO [Primary Care Provider] - 04/10/19 10:55 am Diet: Carb Consistent or DM2 and Heart Healthy Addtl Provider Instructions: Please take precaution to avoid falls Prescriptions: New levofloxacin 750 mg Tablet 750 mg PO DAILY@1100 3 Days Qty: 3 RF: 0 prednisone 10 mg tablet 10 mg PO UD Qty: 18 RF: 0 Lactinex 1 million cell tablet,chewable 1 tab PO BID Qty: 20 RF: 0 Continued amitriptyline 50 mg tablet 100 mg PO HS RF: 0 amlodipine 2.5 mg tablet 2.5 mg PO DAILY RF: 0 albuterol sulfate 90 mcg/actuation Hfa Aerosol Inhaler 2 puff INHALATION QID PRN (Reason: Shortness Of Breath Or Wheezing) RF: 0 gabapentin 300 mg capsule 3 cap PO HS RF: 0 ipratropium-albuterol 0.5 mg-3 mg(2.5 mg base)/3 mL Solution For Nebulization 3 ml INHALATION QID PRN (Reason: Shortness Of Breath Or Wheezing) RF: 0 tizanidine 4 mg tablet 4 mg PO UD RF: 0 ergocalciferol (vitamin D2) [Drisdol] 50,000 unit Capsule 50,000 unit PO UD RF: 0 melatonin 10 mg Tablet 10 mg PO HS RF: 0 clonazepam 2 mg tablet 2 mg PO DIRECTED RF: 0 Silenor 6 mg tablet 6 mg PO HS RF: 0 fluticasone propion-salmeterol 250-50 mcg/dose Blister With Device 1 inh INHALATION BID RF: 0 oxycodone 10 mg tablet 10 mg PO TID PRN (Reason: Pain) RF: 0 mirtazapine 30 mg Tablet 30 mg PO HS RF: 0 Stand-Alone Forms: [facility]/Other Patient Handouts: Metformin Hydrochloride Oral tablet, Diabetes Type 2 Coping, Diabetes Meal Planning Discharge Orders: Discharge Order (Routine); Ordered 04/06/19 Ordered By: Leandra Mascorro Admission Data Admit Date/Time: 03/30/19 12:00 Attending Provider: Leandra Mascorro Admit Provider: Gordon Holley Primary Care Provider: Chuck Smith Other Providers: Kaylah Wolfe Satish K. ; Jb De Santiago Service: Medical Other Interventions: Discharge Summary Assessment (RN) Last Done: 04/06/19 13:38 DC Date/Time DO NOT enter until pt leaves facility: 04/06/19 14:55
== END 2019-04-06 14:55 | disposition home health service (06) | DRG 871 ==
LOC: ED 09:21 → SUATTDRO 12:00 → 2S 12:00 → 2W 04-02 09:24